=== PATIENT | male | born 1960 | race Caucasian/White ===

== ENCOUNTER 2022-10-23 22:31 | Inpatient (IN) | payer BC, OTHER ==
[~2022-10-23] VITALS: Ht 182.9 cm; Wt 61.7 kg
[2022-10-23] MEDS ORDERED: ONDANSETRON 4 MG/2 ML VIAL IVP ONE (22:35)
[2022-10-23 22:37] VITALS: BP 84/58
--- NOTE | 2022-10-23 22:38 | NUR ---
Pt to bed 9
--- NOTE | 2022-10-23 22:40 | NUR ---
ER physician, Dr. Goel, at bedside assessing patient.
--- NOTE | 2022-10-23 22:40 | NUR ---
Patient resting in bed, A/Ox3, chest rise and fall symmetrical, no c/o pain, on monitor. Addendum: 10/24/22 at 0613 by [email or web address] Amendment undone in ED - 10/24/22 at 0635 by [email or web address] Patient resting in bed, A/Ox2, chest rise and fall symmetrical, no c/o pain, on monitor.
[2022-10-23 22:50] VITALS: BP 84/58
[2022-10-23] MEDS ORDERED: NACL 0.9% 500 ML IV ONE (22:55)
[2022-10-23] MEDS ORDERED: NACL 0.9% 1,000 ML IV ONE (23:00)
[2022-10-23] MEDS ORDERED: PIPERACILLIN/TAZOBACTAM 3.375 GM in DEXTROSE 5% 50 ML IV ONE (23:00)
[2022-10-23 23:25] LABS: BASOPHILS % (AUTO) 0.1 % (0.0-2.0); HEMATOCRIT 43.9 % (36-52); HEMOGLOBIN 14.6 g/dL (12.0-18.0); LYMPHOCYTES # (AUTO) 0.6 K/uL (2.0-11.5); LYMPHOCYTES % (AUTO) 1.8 % (20.5-51.1); MEAN CORPUSCULAR HEMOGLOBIN 32 pg (27-31); MEAN CORPUSCULAR HGB CONC 33 g/dL (33-37); MEAN CORPUSCULAR VOLUME 95.2 fL (80-94); MONOCYTES # (AUTO) 0.5 K/uL (0.8-1.0); MONOCYTES % (AUTO) 1.3 % (1.7-9.3); NEUTROPHILS # (AUTO) 34.3 K/uL (1.8-7.7); NEUTROPHILS % (AUTO) 96.8 % (42.2-75.2)
[2022-10-23 23:30] LABS: WHITE BLOOD COUNT (AUTO) 35.4 K/uL (4.8-10.8)
[2022-10-23 23:31] LABS: PLATELET COUNT (AUTO) 1267 K/uL (140-450)
[2022-10-23] MEDS ORDERED: PIPERACILLIN/TAZOBACTAM 3.375 GM VIAL IV ONE (23:39)
[2022-10-23] MEDS ORDERED: ONDANSETRON 4 MG/2 ML VIAL ONE (23:39)
[2022-10-23 23:41] LABS: ANION GAP 16.3 (8-16); CREATININE 1.6 mg/dL (0.6-1.3); POTASSIUM 4.3 mmol/L (3.5-5.1)
[2022-10-23 23:54] LABS: PROTHROMBIN TIME 10.7 secs (10.8-13.4)
[2022-10-24] VITALS (18 sets, daily range): BP systolic 67–144; BP diastolic 39–108
--- NOTE | 2022-10-24 | NUR ---
Patient resting in bed, A/Ox3, chest rise and fall symmetrical, no c/o pain, on monitor. Addendum: 10/24/22 at 0613 by [email or web address] Amendment undone in ED - 10/24/22 at 0635 by [email or web address] Patient resting in bed, A/Ox2, chest rise and fall symmetrical, no c/o pain, on monitor.
[2022-10-24 00:07] LABS: TOTAL BILIRUBIN 1.3 mg/dL (0.0-1.0)
[2022-10-24 00:18] LABS: APPEARANCE,URINE SL CLOUDY (CLEAR); BILIRUBIN,URINE NEGATIVE (NEGATIVE); BLOOD, URINE 2+ (NEGATIVE); COLOR,URINE YELLOW (YELLOW); LEUKOCYTE ESTERASE ,URINE NEGATIVE (NEGATIVE); NITRITE, URINE NEGATIVE (NEGATIVE); PH,URINE 6.5 (5.0-9.0); UGLUCOSE NEGATIVE (NEGATIVE)
[2022-10-24 00:23] LABS: RBC,URINE 11-20 (MOD) /HPF (0-5)
[2022-10-24] MEDS ORDERED: LACT-103 GT (00:36)
[2022-10-24] MEDS ORDERED: CARB-540 GT (00:36)
[2022-10-24] MEDS ORDERED: LATA7.5D OP (00:36)
[2022-10-24] MEDS ORDERED: DILT30TA18 GT (00:36)
[2022-10-24] MEDS ORDERED: [UNRECOGNIZED DRUG - CODE] GT (00:36)
[2022-10-24] MEDS ORDERED: ATRN INH (00:36)
[2022-10-24] MEDS ORDERED: DORZ10DR11 RIGHT EYE (00:36)
[2022-10-24] MEDS ORDERED: POTA10TA70 GT (00:36)
[2022-10-24] MEDS ORDERED: TRAM50TA3 GT (00:36)
[2022-10-24] MEDS ORDERED: TYL650S RC (00:36)
[2022-10-24] MEDS ORDERED: QUEPKT GT (00:36)
[2022-10-24] MEDS ORDERED: FAMO-90 GT (00:36)
[2022-10-24] MEDS ORDERED: PRO5 GT (00:36)
[2022-10-24] MEDS ORDERED: ACET-2619 GT (00:36)
[2022-10-24] MEDS ORDERED: IMO2 GT (00:36)
[2022-10-24] MEDS ORDERED: ESCI5TAB GT (00:36)
[2022-10-24] MEDS ORDERED: DOCU-299 GT (00:36)
[2022-10-24] MEDS ORDERED: NACL 0.9% 500 ML IV ONE ×2 (00:55→02:50)
[2022-10-24] MEDS ORDERED: MIDODRINE 5 MG TAB PO SCH (00:55)
[2022-10-24] MEDS ORDERED: VANCOMYCIN 1,000 MG in DEXTROSE 5% 250 ML IV ONE (01:05)
[2022-10-24] MEDS ORDERED: MIDODRINE 5 MG TAB GT SCH (01:05)
[2022-10-24] MEDS ORDERED: CRUSHER, PILL MC ONE (01:10)
--- NOTE | 2022-10-24 01:17 | NUR ---
Pt to CT
[2022-10-24] MEDS ORDERED: ACETAMINOPHEN 650 MG/20.3 ML UDC GT ONE (02:00)
--- NOTE | 2022-10-24 02:00 | NUR ---
Patient resting in bed, A/Ox3, chest rise and fall symmetrical, no c/o pain, on monitor. Addendum: 10/24/22 at 0613 by [email or web address] Amendment undone in ED - 10/24/22 at 0636 by [email or web address] Patient resting in bed, A/Ox2, chest rise and fall symmetrical, no c/o pain, on monitor.
[2022-10-24] MEDS ORDERED: VANCOMYCIN 1,000 MG VIAL ONE (02:04)
[2022-10-24] MEDS ORDERED: ACETAMINOPHEN 650 MG SUPP RC ONE (02:25)
--- NOTE | 2022-10-24 02:30 | NUR ---
Per Dr. Goel verbal orders, Gtube drain by gravity to vega bag. Draining well, no s/s of distress from patient. 200mL emptied.
[2022-10-24] MEDS: NACL 0.9% 1,000 ML IV SCH ×3 (04:00→23:33)
--- NOTE | 2022-10-24 04:00 | NUR ---
Patient resting in bed, A/Ox3, chest rise and fall symmetrical, no c/o pain, on monitor. Addendum: 10/24/22 at 0613 by [email or web address] Amendment undone in ED - 10/24/22 at 0636 by [email or web address] Patient resting in bed, A/Ox2, chest rise and fall symmetrical, no c/o pain, on monitor.
[2022-10-24] MEDS ORDERED: PIPERACILLIN/TAZOBACTAM 3.375 GM in DEXTROSE 5% 50 ML IV SCH ×2 (05:00→12:00)
--- NOTE | 2022-10-24 05:05 | NUR ---
RECEIVED BEDSIDE REPORT FROM ROLL PLUGGER, ALEX, FOR CONTINUITY OF CARE. PT CONFUSED, BUT ABLE TO FOLLOW COMMANDS. HIFLOW NC IN PLACE 40L FIO2 60%. AFIB ON MONITOR. TLC TO RIJ INFUSING LEVOPHED AT 5 MCG/MIN AND D5 1/2 NS AT 100 ML/HR. 20G IV PATENT IN LAC, SALINE LOCK. G TUBE IN PLACE, CLAMPED. NPO. HOB 30 DEGREES FOR ASPIRATION PRECAUTIONS. STANDARD PRECAUTION. BED WHEELS LOCKED AND IN LOWEST POSITION. Addendum: 10/24/22 at 4936 by Annabella Mills RN TIME SHOULD BE 1505
[2022-10-24] MEDS ORDERED: KETOROLAC 15 MG/ML VIAL IVP SCH (05:30)
[2022-10-24] MEDS ORDERED: PIPERACILLIN/TAZOBACTAM 3.375 GM VIAL IV ONE (05:30)
[2022-10-24] MEDS ORDERED: LORazepam 2 MG/ML VIAL IVP STA (05:41)
--- NOTE | 2022-10-24 06:36 | NUR ---
Patient resting in bed, A/Ox3, chest rise and fall symmetrical, no c/o pain or s/s of distress, on monitor.
--- NOTE | 2022-10-24 06:38 | NUR ---
Dr. Goel at bedside inserting central line. Patient tolerating procedure well, no s/s of distress, patient on monitor.
--- NOTE | 2022-10-24 06:38 | NUR ---
DR MATTHEWS AT BEDSIDE CENTRAL LINE PLACEMENT
[2022-10-24] MEDS ORDERED: POTASSIUM CHLORIDE 10 MEQ TABER PO PRN (06:40)
[2022-10-24] MEDS ORDERED: ZOLPIDEM 10 MG TAB PO PRN (06:40)
[2022-10-24] MEDS ORDERED: MAG SULF 2000 MG/WATER PREMIX 50 ML IV PRN (06:40)
[2022-10-24] MEDS ORDERED: ONDANSETRON 4 MG/2 ML VIAL IVP PRN (06:40)
[2022-10-24] MEDS ORDERED: DOCUSATE SODIUM 100 MG GELCAP PO PRN (06:40)
[2022-10-24] MEDS ORDERED: VANCOMYCIN PER PHARMACY MC PRN (06:45)
--- NOTE | 2022-10-24 07:15 | NUR ---
Change of shift report given to AM shift Nurse Desmond MOONEY. AM shift Nurse Desmond RN verbalized understanding of report, no further questions.
--- NOTE | 2022-10-24 07:15 | NUR ---
TRANSFERRED PT FROM ER BED 10 TO ICU BED 6. ON NRB 15L. PT RETURNED TO BIPAP /,F14, 75%. NO DISTRESS NOTED. PT RESTING COMFORTABLY. WILL CONTINUE TO MONITOR.
[2022-10-24] MEDS: DEXT 5% /NACL 0.9% 1,000 ML IV SCH ×2 (07:16→18:05)
--- NOTE | 2022-10-24 07:33 | NUR ---
Patient will be admitted to care of DR DU. Admited to ICU. Will go to room6. Belongings list completed. Report to ROCKY MOONEY.
--- NOTE | 2022-10-24 07:33 | NUR ---
ASSUMED CARE OF PT AT THIS TIME A/OX4 LOW B/P 78/38 , HR 129, RR 31, PLACED ON BIPAP , DENIES PAIN,RESPIRATIONS EVEN NON LABORED, DIMINISHED LUNG SOUNDS, AFIB ON MONTOR, BILATERAL HEEEL ULCERS, COOL TO TOUCH, TLC RIGHT IJ, LAEFT AC IV X 2. APPEARS TO BE IN NO ACUTE DISTRESS NOTED AT THIS TIME.
[2022-10-24] MEDS: NOREPINEPHRINE 8 MG in DEXTROSE 5% 250 ML IV PRN ×2 (08:30→21:21)
--- NOTE | 2022-10-24 08:48 | NUR ---
PT STARTED ON LEVO AT THIS TIME
--- NOTE | 2022-10-24 09:12 | NUR ---
PATIENT HAS BEEN SCREENED AND CATEGORIZED HIGH NUTRITION RISK. PATIENT WILL BE SEEN WITHIN 1-2 DAYS OF ADMISSION. 10/25/22-10/26/[address] Addendum: 10/24/22 at [address] [facility] REFERRAL RECEIVED FOR UNHEALED WOUND ON 10/24/22.
--- NOTE | 2022-10-24 09:55 | NUR ---
SWITCHED PT FROM BIPAP 05/15, 75%, F14. TO HFNC 40L, 75%,34 DEGREE FOR PT COMFORT. NO DISTRESS NOTED AT THIS TIME AND IS RESTING COMFORTABLY. WILL CONTINUE TO MONITOR.
--- NOTE | 2022-10-24 10:55 | NUR ---
WOUNDCARE NURSE AT BEDSIDE AT THIS TIME
--- NOTE | 2022-10-24 11:22 | NUR ---
WOUND CARE NOTE: PT. ADMITTED WITH PRESSURE INJURY TO RIGHT ABOVE HEEL ACHILLEA AREA. PARTIAL THICKNESS SKIN LOSS 1X1.5X0.2CM,WOUND BED 100% RED MOIST, NO ODOR, LEATHA-WOUND SKIN DRY HEALING SCAR TISSUE. DRY THIN CALLUS TO HEEL AREA. LEFT HEEL HEALED SCAR WITH BLANCHABLE REDNESS. PT IS AWAKE WHEN TOUCH, AAX4. POC DISCUSSED WITH PT. AND PT. VERBALIZES UNDERSTANDING. RECOMMENDATIONS: -CLEANSE RIGHT ABOVE HEEL ACHILLEA AREA WOUND WITH NS, PAT DRY, APPLY ALGINATE DRESSING TO WOUND BED AND COVER WITH DRY DRESSING Q3D AND PRN IF SOILING. -LEFT HEEL APPLY FOAM DRESSING CHANGE Q3 DAY -APPLY THIN LAYER OF Z GUARD TO BUTTOCKS AND SCROTAL AREA BID AND NURSING INFORMATICS CLINICAL ANALYST -POSITIONING: TURN AND REPOSITION PATIENT Q 2H OR SOONER USE PILLOWS TO KEEP BONY PROMINENCES FROM DIRECT CONTACT WITH SURFACES USE REPOSITIONING WEDGES TO PROVIDE 30-DEGREE ANGLE FOR SIDE LYING POSITIONS OFFLOADING OR FOAM DRESSING TO ALL TUBING TO PREVENT MEDICAL DEVICES RELATED PRESSURE INJURY -RE-EVALUATING AND MANAGING INCONTINENCE MONITOR SKIN CONDITION DURING POSITION CHANGE DO NOT MASSAGE REDNESS, BONY PROMINENCES FREQUENT LEATHA-CARE AND PROVIDE BARRIER CREAMS PRN IF SOILING MOISTURE CONTROL BY OFFER BED ENG/URINAL /ABSORBENT PAD TO WICK AND HOLD MOISTURE KEEP SKIN DRY AND PROTECT FROM FRICTION -MANAGE FRICTION/SHEAR/MOBILITY KEEP HOB AT THE LOWEST LEVEL OF ELEVATION NO MORE THAN 30 DEGREE UNLESS OTHERWISE CONTRAINDICATED USE LIFT SHEET OR TRANSFER DEVICE TO MOVE PATIENT AND PREVENT LATERAL SHEER. PROTECT HEELS, ELBOWS BONY PROMINENCES WITH SKIN BERRIES OR FOAM DRESSING IF EXPOSED TO FRICTION OFFLOAD BILATERAL HEELS BY PLACING PILLOWS UNDER CALVES AT ALL TIMES, UNLESS OTHERWISE CONTRAINDICATED -PRESSURE REDISTRIBUTION SURFACE THERAPY JULIO ISOFLEX MATTRESS -NUTRITION: PLEASE FOLLOW RD RECOMMENDATIONS AND OFFER NUTRITION SUPPLEMENTS IF ORDERED. PLEASE CONTACT WOUND CARE NURSE FOR ANY QUESTION AND CHANGE OF WOUND CONDITION.
--- NOTE | 2022-10-24 12:03 | NUR ---
DR PATEL AND AT BEDSIDE, STATED PT IS A DNR, AGREES, STATED SHE SIGNED THE POLST FORM 5 MONTHS AGO WHEN HE HAD THIS ISSUE AT [facility].
--- NOTE | 2022-10-24 12:03 | NUR ---
REQUESTED FOR POLST FORM FROM [facility] .
[2022-10-24 12:24] LABS: CARBON DIOXIDE 22.2 mmol/L (21-32); CREATININE 2.8 mg/dL (0.6-1.3); POTASSIUM 4.2 mmol/L (3.5-5.1)
[2022-10-24] MEDS: PIPERACILLIN/TAZOBACTAM 2.25 GM in DEXTROSE 5% 50 ML IV SCH ×2 (13:29→20:06)
--- NOTE | 2022-10-24 13:36 | NUR ---
xrat at bedside taking mutiple pictures
--- NOTE | 2022-10-24 14:14 | NUR ---
dr lemus at bedside at this time
[2022-10-24 14:18] LABS: HEMATOCRIT 33.6 % (36-52); HEMOGLOBIN 11.1 g/dL (12.0-18.0); MEAN CORPUSCULAR HEMOGLOBIN 32 pg (27-31); MEAN CORPUSCULAR HGB CONC 33 g/dL (33-37); MEAN CORPUSCULAR VOLUME 95.6 fL (80-94); PLATELET COUNT (AUTO) 689 K/uL (140-450); RED BLOOD CELL COUNT(AUTO) 3.51 MIL/uL (4.20-6.10); RED CELL DISTRIBUTION WIDTH 13.9 % (11.6-13.7)
[2022-10-24 14:27] LABS: WHITE BLOOD COUNT (AUTO) 36.9 K/uL (4.8-10.8)
[2022-10-24 14:46] LABS: LYMPHOCYTES % (MANUAL) 4 % (20-46); METAMYELOCYTES % 5 % (0-0)
--- NOTE | 2022-10-24 15:01 | NUR ---
handoff report to abhishek)
[2022-10-24] MEDS: Z-GUARD PASTE TP SCH (17:00)
[2022-10-24] MEDS: LORazepam 2 MG/ML VIAL IVP PRN ×2 (17:48→23:43)
--- NOTE | 2022-10-24 19:18 | NUR ---
PHONE CALL TO DR. PATEL FOR ORDERS. PT MAXED ON LEVOPHED. ORDERS RECEIVED TO START VASOPRESSIN THEN NORSYNEPHRINE.
[2022-10-24] MEDS ORDERED: VASOPRESSIN 20 UNITS/ML VIAL ONE (19:19)
[2022-10-24] MEDS ORDERED: PHENYLEPHRINE 10 MG in NACL 0.9% 250 ML IV PRN (19:20)
[2022-10-24] MEDS ORDERED: VASOPRESSIN 20 UNITS in NACL 0.9% 250 ML IV SCH (19:20)
--- NOTE | 2022-10-24 19:22 | NUR ---
ENDORSED REPORT TO RETAIL ACCOUNT MANAGER REGISTRY JESICA WAGNER. FOR CONTINUITY OF CARE.
--- NOTE | 2022-10-24 19:24 | NUR ---
Report received from Linsey MOONEY for continuity of care. All cares assumed. Patient currently in bed calm after PRN administered dose of Ativan. Patient VSS and appears to not be in distress at this time. All lines assessed for appropriateness. Verified IV and gtt with 2nd RN. Environmental safety check complete. Cares commence.
--- NOTE | 2022-10-24 19:59 | NUR ---
Dr. Byrnes at bedside. Report given and update on patient current status provided.
[2022-10-24] MEDS ORDERED: NOREPINEPHRINE 4 MG/4 ML VIAL IV ONE (21:14)
--- NOTE | 2022-10-24 23:51 | NUR ---
DR. Keating, Surgical Consult, called requesting information on patient status. Discussed vital signs, patient current status, and next of kin contact information. New orders received.
[2022-10-25] VITALS (29 sets, daily range): BP systolic 96–130; BP diastolic 23–105
[2022-10-25] MEDS: Z-GUARD PASTE TP SCH ×2 (00:41→13:18)
--- NOTE | 2022-10-25 00:41 | NUR ---
NG tube placed per MD orders. Patient tolerated well. VSS. Cares continue.
--- NOTE | 2022-10-25 00:47 | NUR ---
Radiology at bedside performing KUB.
[2022-10-25] MEDS: DEXT 5% /NACL 0.9% 1,000 ML IV SCH ×2 (01:42→13:15)
[2022-10-25] MEDS ORDERED: NOREPINEPHRINE 4 MG/4 ML VIAL IV ONE (01:49)
--- NOTE | 2022-10-25 02:08 | NUR ---
Patient placed on low intermittent suction via ng tube.
[2022-10-25] MEDS: MORPHINE SULFATE 2 MG/ML SYR IVP PRN ×3 (02:22→23:00)
--- NOTE | 2022-10-25 04:01 | NUR ---
SPO2 98%. TITRATED FiO2 FROM 60% TO 50%. SPO2 94%. PT TOLERATING WELL AT THIS TIME. RN NOTIFIED. WILL CONTINUETO MONITOR PT.
--- NOTE | 2022-10-25 04:21 | NUR ---
Morning labs drawn via central line. Lab at bedside to collect specimen. Patient tolerated well.
[2022-10-25] MEDS: PIPERACILLIN/TAZOBACTAM 2.25 GM in DEXTROSE 5% 50 ML IV SCH ×3 (04:53→20:24)
[2022-10-25 05:47] LABS: BASOPHILS % (AUTO) 0.1 % (0.0-2.0); HEMATOCRIT 34.8 % (36-52); HEMOGLOBIN 11.5 g/dL (12.0-18.0); LYMPHOCYTES # (AUTO) 0.4 K/uL (2.0-11.5); LYMPHOCYTES % (AUTO) 1.2 % (20.5-51.1); MEAN CORPUSCULAR HEMOGLOBIN 32 pg (27-31); MEAN CORPUSCULAR HGB CONC 33 g/dL (33-37); MEAN CORPUSCULAR VOLUME 95.7 fL (80-94); MONOCYTES # (AUTO) 0.5 K/uL (0.8-1.0); MONOCYTES % (AUTO) 1.3 % (1.7-9.3); NEUTROPHILS # (AUTO) 35.5 K/uL (1.8-7.7); NEUTROPHILS % (AUTO) 97.4 % (42.2-75.2); PLATELET COUNT (AUTO) 695 K/uL (140-450); RED BLOOD CELL COUNT(AUTO) 3.63 MIL/uL (4.20-6.10); RED CELL DISTRIBUTION WIDTH 14.5 % (11.6-13.7)
--- NOTE | 2022-10-25 05:50 | NUR ---
AM care complete. Bed bath provided including perineal and oral care. One large, thin and yellow-colored BM noted. New condom catheter in place. Patient tolerated well. Cares continue.
[2022-10-25 06:08] LABS: ANION GAP 22.2 (8-16); CARBON DIOXIDE 18.7 mmol/L (21-32); CREATININE 1.9 mg/dL (0.6-1.3); POTASSIUM 3.9 mmol/L (3.5-5.1); WHITE BLOOD COUNT (AUTO) 36.4 K/uL (4.8-10.8)
--- NOTE | 2022-10-25 07:01 | NUR ---
Dr. Keating called requesting update on KUB and patient status. Update provided. placed order for C.diff sample due to loose, watery stool. MD states to inform family to give him a call to discuss plan of care. Verbalized understanding.
--- NOTE | 2022-10-25 07:05 | NUR ---
Report given to Jason MOONEY for continuity of care. All cares endorsed.
--- NOTE | 2022-10-25 07:47 | NUR ---
received sbar from Autumn(fidel) pt resting in bed in stable condition at this time with even respirations, awaitng KUB.
--- NOTE | 2022-10-25 08:03 | NUR ---
DR MULLIGAN AT BEDSIDE AWARE OF PT STATUS
[2022-10-25] MEDS: NOREPINEPHRINE 8 MG in DEXTROSE 5% 250 ML IV PRN ×2 (09:03→23:40)
[2022-10-25] MEDS: NACL 0.9% 1,000 ML IV SCH (09:20)
[2022-10-25] MEDS: LORazepam 2 MG/ML VIAL IVP PRN ×2 (09:59→23:34)
[2022-10-25] MEDS ORDERED: VANCOMYCIN 1,000 MG in DEXTROSE 5% 250 ML IV SCH (10:00)
[2022-10-25] MEDS ORDERED: AMIODARONE 150 MG in DEXTROSE 5% 100 ML IV ONE (10:15)
--- NOTE | 2022-10-25 10:16 | NUR ---
DR PATEL HERE AT BEDSIDE, CALLED REGARDING PT DECLINING CONDITION.
--- NOTE | 2022-10-25 11:10 | NUR ---
CALLED RT (PAM) REGARDING PT BREATHING, NEEDS SUCTIONING
[2022-10-25] MEDS: AMIODARONE 450 MG in DEXTROSE 5% 250 ML IV SCH (11:23)
--- NOTE | 2022-10-25 11:32 | NUR ---
AT BEDSIDE AT THIS TIME, SPOKE TO DR PATEL, STATED SHE WILL CALL HER SISTER FOR A 3 WAY CONFERENCE CALL.
--- NOTE | 2022-10-25 13:07 | NUR ---
STEPSON AT BEDSIDE AT THIS TIME
--- NOTE | 2022-10-25 13:11 | NUR ---
DC PLANNING ASSESSMENT COMPLETE PLEASE REFER TO ASSESSMENT FOR ADDITIONAL DETAILS HATSUMI REPORTS BEING UPDATED ON POC BY PHYSICIAN. DC PLAN TENTATIVE ON PHYSICIANS RECOMMENDATIONS. Addendum: 10/25/22 at 1313 by Beth PALMER Amended: Links added.
[2022-10-25] MEDS: FOAM DRESSING TP SCH (13:17)
--- NOTE | 2022-10-25 14:09 | NUR ---
10/25/22 RD INITIAL ASSESSMENT COMPLETED PLEASE REFER TO NUTRITION ASSESSMENT UNDER CARE ACTIVITY FOR ESTIMATED NUTRITIONAL NEEDS. 1. MONITOR NPO STATUS 2. WHEN/IF MEDICALLY APPROPRIATE TO START TF, RECOMMEND GLUCERNA 1.2 AT GOAL RATE 70 ML/HR WITH RANDI BID FOR WOUND SUPPORT, FWF 200 ML Q6H OR PER MD TOLERATED - WITH RANDI BID (PROVIDES 160 KCAL AND 5 GM PROTEIN DAILY) WILL PROVIDE 1680 ML TOTAL VOLUME, 2176 KCAL, 105 GM PROTEIN AND 2152 ML FREE WATER DAILY MEETING 98% ESTIMATED KCAL NEEDS AND 100% ESTIMATED PROTEIN NEEDS; ADEQUATE - START TF AT 2O ML/HR INCREASE BY 2O ML Q4H UNTIL GOAL IS REACHED TOLERATED 3. MONITOR GI SYMPTOMS, GASTRIC RESIDUALS AND NUTRITION RELATED LAB VALUES 4. CONSULT RD PRN 5. RD TO FOLLOW-UP 2-3 DAYS, HIGH RISK REVIEWED BY BARBARA YEE RD
--- NOTE | 2022-10-25 14:37 | NUR ---
CALLED REGARDING GURGLING SOUNDS, DR MELENDREZ AT BEDSIDE STATED TO DC FLUIDS AT THIS TIME AND GET AN ABG.
--- NOTE | 2022-10-25 14:42 | NUR ---
DC PLANNING A 62 Y.O.MALE PATIENT, A RESIDENT OF [facility] ADMITTED TO ICU 10/24/22 FOR DESATURATION AND SOB.HX OF HTN,CHF,DM, A.FIB AND PARAPLEGIA.PATIENT WAS TACHYCARDIC AND HYPOTENSIVE. WAS STARTED ON LEVOPHED.ON HI FLOW 40L FIO2 50%.CHEST /ABDOMEN/PELVIS CT - SHOWS SBO. SMALL BOWEL FOLLOW THROUGH SERIES CONSISTENT WITH SEVERE ILEUS.GEN.SURGERY ON BOARD. CARDIO,PULMO AND ID FOLLOWING WELL.URINE,BLOOD (-).NO MRSA ISOLATED.ON ZOSYN.PATIENT IS DNR.DC PLAN- BACK TO [facility] WHEN PATIENT RESPONDS TO TX.CM TO FOLLOW. Addendum: 10/29/22 at 1244 by EDDIE HAHN CM DC PLANNING PATIENT IS A RESIDENT OF [facility] .PATIENT IS STILL INTUBATED.ON AMIODARONE,VASOPRESSIN AND LEVO DRIPS.WBC ON ADMISSION 35.4 DOWN TO 18.7. BLOOD AND URINE CULTURES NO GROWTH.STOOL (+) FOR C.DIFF.ON VANCOMYCIN.CODE STATUS FULL CODE PER 'S REQUEST.EX-PLOR LAP REFUSED BY .SAME CONSULTS ABOVE ON BOARD .CM TO FOLLOW Addendum: 10/31/22 at 1434 by EDDIE HAHN CM DC PLANNING PATIENT STILL INTUBATED ON 30%FIO2.ON VASOPRESSIN AND FENTANYL DRIPS.WBC STILL HIGH 26.7.10/27 (+)FOR ESBL IN SPUTUM, 10/25 BLOOD CULTURE (+) FOR C.DIFF, 10/24 BLOOD CULTURE (+) FOR MRSA.10/25 CXR -SUGGESTIVE OF PNEUMONIA.10/23 CHEST/ABDOMEN/PELVIS -CONSISTENT WITH BOWEL OBSTRUCTION.10/24- SMALL BOWEL XR-SBO BUT REFUSED SURGERY STATED EARLIER.ABLE TO GET AUTH FROM [employer] .AUTH [id number] APPROVAL FROM October TO October.MESSAGE LET TO CM CARLYN TURNER RN REGARDING TRANSFER TO [facility].UPDATE OF CONDITION GIVEN WELL.WILL CALL TO UPDATE ABOUT INSYURANCE CONCERN.CARDIO,PULMO ,ID ON BOARD .CM TO FOLLOW. Addendum: 10/31/22 at 1440 by EDDIE HAHN CM LATE ENTRY PATIENT IS ON VASOPRESSIN AND LEVOPHED DRIPS.OFF FENTANYL DRIP SINCE 10/29.ON MEROPENEM AND VANCOMYCIN Addendum: 11/06/22 at 1316 by EDDIE HAHN CM DC PLANNING PATIENT IS STILL VENTED AND FAILING CPAP TRIALS.FOR POSSIBLE TRACH IF UNABLE TO WEAN VENT.10/27 SPUTUM (+) ESBL.STARTED ON LEVOPHED FOR LOW B/P.PATIENT HAS RECTAL TUBE AND (+0 FOR C.DIFF 10/25.HAD A.FIB ON ADMISSION BUT ON SR NOW.ON AMIODARONE PO.PATIENT HAS MULTIPLE CONSULTS (NEPHRO,CARDIO.PULMO,ID AND SURGERY ).HAVE NOT GOTTEN A CALL FROM [employer] BUT WILL GIVE ANOTHER UPDATE TODAY.CM TO FOLLOW. Addendum: 11/07/22 at 1654 by EDDIE HAHN CM DC PLANNING REQUEST FOR LTAC EVALUATION INITIATED.CLINICALS FAXED TO JIM.PATIENT IS POST TRACHEOSTOMY TODAY AND BACK ON THE VENT.STILL ON LEVOPHED.CM TO FOLLOW.O Addendum: 11/09/22 at 1248 by EDDIE HAHN CM DC PLANNING PATIENT TRACH TO VENT.OFF PRESSORS.PATIENT IS DNI/DNR.CLINICALS FAXED TO [facility] AT .REMEDIOS [place]LE SPOKE WITH [employer] REP AT FOR AUTHORIZATION FOR LTAC.JIM ELECTRICAL CONTINUITY INSPECTOR UPDATED OF ABOVE PHONE NUMBER TO CALL FOR AUTH FOR LTAC.CM TO FOLLOW. Addendum: 11/12/22 at 1212 by EDDIE HAHN CM DC PLANNING PATIENT IS STILL ON TRACH TO VENT.CPAP TRIALS PER RT.WBC CREEPING UP AGAIN(27.4).11/07 BLOOD CULTURE SHOWS KLEBSIELLA PNEUMONIA AND PSEUDOMONAS A. ANTIBIOTICS -COLISTIMETHATE AND MEROPENEM. ID ON BOARD. AUTHORIZATION FOR LTAC GIVEN BY DIANA.REF #[id number] X 5 -11 DAYS.[facility]ANG AT [facility] NOTIFIED.AWAITING FOR BED AVAILABILITY AT [facility]. NOTIFIED BY HUANG WELL. CM TO FOLLOW. Addendum: 11/12/22 at 1358 by EDDIE HAHN CM DC PLANNING LATE ENTRY- [employer] PHONE NUMBER FOR MEDICAL AUTH. Addendum: 11/12/22 at 1442 by REMEDIOS LIZ CM RECEIVED ORDER FOR SETUP TRANSPORTATION ON WILL CALL LIST. FROM [facility] TO [facility] [id number] [facility] [id number]. ARRANGED WITH [facility] Addendum: 11/12/22 at 1448 by EDDIE HAHN CM DC PLANNING AUTH FOR TRANSPORT -[id number] GIVEN BY LOC DeutschAT [facility].PHONE NUMBER . Addendum: 11/13/22 at 1032 by Tricia Michael RN DC PLANNING: RECEIVED A MESSAGE FROM [facility] STATED PATIENT GOT ACCEPTED AT [facility] UNDER THE CARE OF DR MCFARLAND. CAN GO TO ROOM [facility] # TO GIVE REPORT [phone] NOTIFIED REILLY MOONEY ARRANGED TRANSPORT WITH [employer] TIME 1200PM. CM TO FOLLOW Addendum: 11/13/22 at 1138 by EDDIE HAHN CM DC PLANNING TALKED TO JOYCE ON THE PHONE AND UPDATED OF PATIENT'S TRANSFER TO [facility] ROOM 315 .AUTHORIZATION FOR STAY HERE AT [facility] FROM ADMISSION TO November WHEN MEDICAL AUTH WAS CHECKED BY CALLING .[employer] [facility] TIME BY [facility] AT 12 NOON.
--- NOTE | 2022-10-25 14:55 | NUR ---
DR Swift CALLED REGARDING KUB RESULTS
[2022-10-25] MEDS ORDERED: TPN PER PHARMACY MC PRN (16:20)
--- NOTE | 2022-10-25 18:13 | NUR ---
DR Swift HERE AT BEDSIDE WITH FAMILY, NO SURGERY NEEDED AT THIS TIME WILL CONTINUE TO OBSERVE
--- NOTE | 2022-10-25 22:36 | NUR ---
1900-REPORT WAS RECEIVED FROM [facility] AT BEDSIDE.PT.RECEIVED IN HIGH FLOW 02 PER CANNULA 40 LITERS 70%WITH 02 SAT 97-99. [id number] PER MIN
--- NOTE | 2022-10-25 22:52 | NUR ---
2030- HAD SOME FECAL LEAK FROM THE FLEXISEAL AND SCATTERRED IN BED. .COMPLATE BED BATH DONE AND TOTAL LINEN CHANGED DONE . oREAL CARE DONE
--- NOTE | 2022-10-25 22:55 | NUR ---
2200- MAINTAINED HOB UP HIGH COBB POS. AND SIDERAILS UP TIMES 3 . BED IN LOW POSITION
--- NOTE | 2022-10-25 23:01 | NUR ---
2246- TACHYPNEIC-51/MIN , MORPHINE 2 MG iVP GIVEN TO CALM DOWN PT.
[2022-10-26] VITALS (25 sets, daily range): BP systolic 107–138; BP diastolic 65–83
[2022-10-26] MEDS: VANCOMYCIN 500 MG VIAL GT SCH ×2 (00:53→05:17)
[2022-10-26] MEDS: Z-GUARD PASTE TP SCH ×2 (00:54→13:00)
--- NOTE | 2022-10-26 01:21 | NUR ---
0000-B REPOSITIONED AND ORAL CARE DONE
--- NOTE | 2022-10-26 02:18 | NUR ---
0200- REMAINS TACHYPNIECBET 45-48 /MIN BUT O2AT IS 97%-98%. WILL GIVE HIM ANOTHER DOSE OF MORPHINE 2MG IVP IN AN HOUR TO SEE IF THE PAIN MED WILL BE EFFECTIVE IN BRINGING DOWN HIS RESP. RATE
[2022-10-26] MEDS: MORPHINE SULFATE 2 MG/ML SYR IVP PRN ×2 (03:03→20:01)
--- NOTE | 2022-10-26 03:45 | NUR ---
0303- MORPHINE SULFATE 2MG IVP WAS GIVEN FOR COMFORT AND TO REDUCE RESP. RATE
[2022-10-26] MEDS: PIPERACILLIN/TAZOBACTAM 2.25 GM in DEXTROSE 5% 50 ML IV SCH ×3 (04:21→19:50)
[2022-10-26 06:10] LABS: HEMATOCRIT 31.7 % (36-52); HEMOGLOBIN 10.5 g/dL (12.0-18.0); MEAN CORPUSCULAR HEMOGLOBIN 31 pg (27-31); MEAN CORPUSCULAR HGB CONC 33 g/dL (33-37); MEAN CORPUSCULAR VOLUME 94.1 fL (80-94); PLATELET COUNT (AUTO) 541 K/uL (140-450); RED BLOOD CELL COUNT(AUTO) 3.37 MIL/uL (4.20-6.10); RED CELL DISTRIBUTION WIDTH 14.2 % (11.6-13.7)
[2022-10-26 06:15] LABS: PHOSPHORUS 2.6 mg/dL (2.5-4.9)
[2022-10-26 06:18] LABS: ALBUMIN 1.7 g/dL (3.4-5.0); CHOL/HDL RATIO 7.8 (1-4.5)
[2022-10-26 06:25] LABS: ANION GAP 14.8 (8-16); CARBON DIOXIDE 23.9 mmol/L (21-32); CREATININE 1.1 mg/dL (0.6-1.3)
--- NOTE | 2022-10-26 06:25 | NUR ---
0500- REPOSITIONE, ORAL CARE DONE
[2022-10-26 06:27] LABS: POTASSIUM 2.7 mmol/L (3.5-5.1)
[2022-10-26 06:30] LABS: WHITE BLOOD COUNT (AUTO) 25.4 K/uL (4.8-10.8)
[2022-10-26 06:51] LABS: BASOPHILS % (MANUAL) 1 % (0-2); EOSINOPHILS % (MANUAL) 0 % (0-4); LYMPHOCYTES % (MANUAL) 4 % (20-46); MONOCYTES % (MANUAL) 6 % (5-12)
--- NOTE | 2022-10-26 07:07 | NUR ---
0638-LAB RESULT K= LEVEL IS 2.7, GAVE 40 MEQ OF KDUR THRU PEG AND
--- NOTE | 2022-10-26 07:32 | NUR ---
CALLED TO BEDSIDE BECAUSE PATIENT WAS DESATING TO 82%. PATIENTS NASAL CANNULA WAS NOT SITTING DIRECTLY IN NOSTRILS. REPOSITIONED NASAL CANNULA AND CHANGED OUT PULSE OX. PATIENT IS NOW SATING AT 96%. PATIENT CONTINUE TO BELLY BREATHE AND EXHIBITS TACHYPNEA.WILL CONTINUE TO MONITOR.
--- NOTE | 2022-10-26 07:37 | NUR ---
0710-SHIFT ENDORSEMENT GIVEN TO ROCKY
[2022-10-26] MEDS: VANCOMYCIN 1.25GM PREMIX 250 ML IV SCH (10:00)
[2022-10-26] MEDS ORDERED: POTASSIUM CHLORIDE 40 MEQ, LIDOCAINE 1% 25 MG in NACL 0.9% 250 ML IV SCH (10:00)
[2022-10-26] MEDS: BLOOD GLUCOSE MONITORING 1 DEV DEV MC SCH ×3 (12:00→23:11)
[2022-10-26] MEDS: VANCOMYCIN HCL 25 MG/ML SOLN GT SCH ×3 (12:00→23:15)
[2022-10-26] MEDS: NOREPINEPHRINE 8 MG in DEXTROSE 5% 250 ML IV PRN (19:25)
--- NOTE | 2022-10-26 19:27 | NUR ---
KIKI JO(RN)
[2022-10-26] MEDS: ALBUTEROL SULFATE/IPRATROPIU 3 ML SOL IH PRN ×2 (19:41→23:16)
[2022-10-26] MEDS: AMINO ACIDS 8.5% IV SCH ×3 (19:44)
[2022-10-26] MEDS: MULTIVITAMIN IV SCH ×3 (19:44)
[2022-10-26] MEDS: DEXTROSE IV SCH ×3 (19:44)
--- NOTE | 2022-10-26 19:45 | NUR ---
1900 LOWERED LITER FLOW FROM 40 TO 35 L ON HIGH FLOW
--- NOTE | 2022-10-26 20:32 | NUR ---
1914 -RECEIVED BEDSIDE ENDORSEMENT WAQAS HIDALGO RN DAY SHIFT. PT IS CRITICALLY STABLE EXCEPT TACHYPNEIC UP TO 50/MIN ORAL CARE DONE AND REPOSITIONED. SIDERAILS UP TIMES 3 AND BED UP TO HIGH FOWLERS POS. ON HIGH FLOW 02 AT 35LITERS AND 70% o2. ON ST 111-114, AFEBRILE AND ON LEVOPHED DRIP 15MCG/MIN, AMIODARONE DRIP AT 0.5MG/HR AND VASOPRESSIN AT 0.2 UNITS/ HR Addendum: 10/27/22 at 0247 by Agency 04 JESICA MOONEY VASOPRESSIN AT 0.2 UNITS/ MIN
--- NOTE | 2022-10-26 22:03 | NUR ---
1999- REMAINS TACHYPNEIC UP TO 40-45/MIN. HOB UP HIGH FOWLERS POSITION
--- NOTE | 2022-10-26 22:07 | NUR ---
2001- MORPHINE 2 MG IVP GIVEN FOR COMFORT AND TO REDUCE TACHYPNEA
--- NOTE | 2022-10-26 22:10 | NUR ---
2200- FLEXISEAL WAS LEAKING , COMPLETE BED BATH DONE AND COMPLETE LINEN CHANGED DONE
[2022-10-26] MEDS: INSULIN LISPRO SLIDING SCALE 100 UNITS/ML VIAL SUBQ PRN (23:12)
--- NOTE | 2022-10-26 23:18 | NUR ---
2315 lowered liter flow from 35 to 30 l on high flow
--- NOTE | 2022-10-26 23:42 | NUR ---
2335 PLACED PATIENT ON BIPAP DUE TO HIS HIGH RESPIRATORY RATE IN THE 50'S. PLACED PT ON IPAP 12 EPAP 6 RR 14 FIO2 70% PT HAS COARSE BREATH SOUNDS. 2 DUONEB TXS GIVEN SO FAR
[2022-10-26] MEDS ORDERED: VASOPRESSIN 20 UNITS/ML VIAL ONE (23:43)
--- NOTE | 2022-10-26 23:43 | NUR ---
2340-PT REMAINS TACHYPNEIC 50/MIN AND CRACLES HEARD ALL OVER . RT PLACED HIM ON BIPAP DR DON TEXTED REGARDING BIPAP AND OPT. MIGHT NEED LASIX ASWE HEARD CRACKLESALL OVER . RESP RATE AFTERTHE BIPAP WAS 35
[2022-10-27] VITALS (34 sets, daily range): BP systolic 94–136; BP diastolic 53–91
[2022-10-27] MEDS: LORazepam 2 MG/ML VIAL IVP PRN (01:25)
[2022-10-27] MEDS: Z-GUARD PASTE TP SCH ×2 (01:33→13:23)
--- NOTE | 2022-10-27 01:35 | NUR ---
0125- REMAINS TACHYPNEIC 50/MIN, ATIVAN 2 MG IVP GIVEN FOR RR TO GO DOWN
--- NOTE | 2022-10-27 02:21 | NUR ---
0200- ON SR W/O ECTOPY
[2022-10-27] MEDS: PIPERACILLIN/TAZOBACTAM 2.25 GM in DEXTROSE 5% 50 ML IV SCH ×3 (04:14→20:46)
--- NOTE | 2022-10-27 04:30 | NUR ---
0400- BACK TO AFIB UNCONTROLLED [id number] . REMAINS TACHYPNEIC
--- NOTE | 2022-10-27 04:33 | NUR ---
0430 LOWERED FIO2 TO 60% ON BIPAP
[2022-10-27] MEDS ORDERED: FUROSEMIDE 20 MG/2 ML VIAL IVP ONE ×2 (04:40→05:15)
--- NOTE | 2022-10-27 04:46 | NUR ---
0445-DR OSEGUERA CALLED BACK AND ORDEREDLASIX 20 MG IVP
[2022-10-27] MEDS: VANCOMYCIN HCL 25 MG/ML SOLN GT SCH ×3 (05:34→17:50)
[2022-10-27 05:47] LABS: HEMATOCRIT 28.9 % (36-52); HEMOGLOBIN 9.7 g/dL (12.0-18.0); LYMPHOCYTES # (AUTO) 0.7 K/uL (2.0-11.5); LYMPHOCYTES % (AUTO) 2.8 % (20.5-51.1); MEAN CORPUSCULAR HEMOGLOBIN 32 pg (27-31); MEAN CORPUSCULAR HGB CONC 34 g/dL (33-37); MONOCYTES # (AUTO) 0.6 K/uL (0.8-1.0); MONOCYTES % (AUTO) 2.3 % (1.7-9.3); NEUTROPHILS # (AUTO) 23.8 K/uL (1.8-7.7); NEUTROPHILS % (AUTO) 94.9 % (42.2-75.2); PLATELET COUNT (AUTO) 384 K/uL (140-450); RED BLOOD CELL COUNT(AUTO) 3.04 MIL/uL (4.20-6.10); RED CELL DISTRIBUTION WIDTH 14.3 % (11.6-13.7)
[2022-10-27 05:50] LABS: CREATININE 0.7 mg/dL (0.6-1.3)
--- NOTE | 2022-10-27 06:08 | NUR ---
0600- NO FLEXISEAL LEAK
[2022-10-27] MEDS: BLOOD GLUCOSE MONITORING 1 DEV DEV MC SCH ×3 (06:22→17:50)
[2022-10-27] MEDS: INSULIN LISPRO SLIDING SCALE 100 UNITS/ML VIAL SUBQ PRN ×3 (06:23→17:49)
--- NOTE | 2022-10-27 06:45 | NUR ---
5618- DR JAIRO ROCHE WAS TEXTED TO INFORM THAT PT. RETURNED TO AFIB UNCONTROLLED [id number], REMAINS ON AMIODARONE 0.5 MG / MIN AND BP WAS STABLE. RESPONDED WELL TO LASIX
[2022-10-27 07:09] LABS: WHITE BLOOD COUNT (AUTO) 25.1 K/uL (4.8-10.8)
--- NOTE | 2022-10-27 07:15 | NUR ---
Received report on pt. Pt drowsy, arousable, does not follow commands, moves hands, equal chest rise and fall. Pt in no signs of pain, on bipap Fio2 60%. On levophed, vasopressin, and amiodarone drips, HR remains in 140s-150s. Pt receiving TPN, NGT to suction with brown liquid output. Wilkins in place draining urine to gravity. Flexiseal in place with liquid brown output.
[2022-10-27] MEDS: AMIODARONE 450 MG in DEXTROSE 5% 250 ML IV SCH ×2 (07:30→17:26)
[2022-10-27] MEDS: VANCOMYCIN 1.25GM PREMIX 250 ML IV SCH (09:03)
[2022-10-27] MEDS ORDERED: KCL 20 MEQ IN 100 mL PREMIX 200 ML IV ONE (09:50)
[2022-10-27] MEDS ORDERED: VANCOMYCIN 1,000 MG in DEXTROSE 5% 250 ML IV SCH (10:00)
--- NOTE | 2022-10-27 10:23 | NUR ---
10/27/22 RD FOLLOW UP COMPLETED PLEASE REFER TO NUTRITION ASSESSMENT UNDER CARE ACTIVITY FOR ESTIMATED NUTRITIONAL NEEDS. 1. MONITOR BLOOD GLUCOSE LEVELS AND GI SYMPTOMS 2. WHEN/IF MEDICALLY APPROPRIATE TO START TF, RECOMMEND GLUCERNA 1.2 AT GOAL RATE 70 ML/HR WITH RANDI BID FOR WOUND SUPPORT, FWF 200 ML Q6H TOLERATED - WITH RANDI BID (PROVIDES 160 KCAL AND 5 GM PROTEIN DAILY) WILL PROVIDES 1680 ML TOTAL VOLUME, 2176 KCAL, 105 GM PROTEIN AND 2152 ML FREE WATER DAILY MEETING 98% ESTIMATED KCAL NEEDS AND 100% ESTIMATED PROTEIN NEEDS; ADEQUATE - START TF AT 1O ML/HR INCREASE BY 1O ML Q4H UNTIL GOAL IS REACHED TOLERATED 3. CONSULT RD PRN 4. RD TO FOLLOW-UP 2-3 DAYS, HIGH RISK BARBARA YEE RD
--- NOTE | 2022-10-27 10:29 | NUR ---
Placed call x2 to patient's , Edison Gonzalez, with Dr. Antonio. No answer, left voicemail.
[2022-10-27] MEDS ORDERED: PROPOFOL 1000 MG/100 ML PREMIX 100 ML IV ONE (11:38)
--- NOTE | 2022-10-27 11:44 | NUR ---
Intubation done by Dr. Antonio who also administered propofol 25 mcg IV push and Rocuronium 50 mg IV push. Addendum: 10/27/22 at 1353 by Agency NurseJESICA RN Witnessed by
--- NOTE | 2022-10-27 11:45 | NUR ---
PATIENT INTUBATED BY MD MANE FOR AIRWAY PROTECTION. PATIENT SUCCESSFULLY INTUBATED WITH 8.0 ETT. AIRWAY IS PATENT AND SECURED AT 25cm @TEETH WITH TUBE STEPHENS AND BITE BLOCK. POSITIVE COLOR CHANGE, BILATERAL BREATH SOUNDS HEARD, AND ADEQUATE CHEST RISE AND FALL NOTED. PATIENT PLACED ON VENTILATOR WITH SETTINGS PRVC 450, RATE 20, 100% FIO2, AND PEEP OF 5. CXR DONE SHOWING TUBE 2.2cm ABOVE SOFIE. ABG AND SPUTUM ORDERED. AMBU BAG LEFT AT BEDSIDE. VENTILATOR ALARMS ARE SET AND AUDIBLE TO ENVIRONMENT. VENTILATOR IS PLUGGED INTO RED OUTLET. WILL CONTINUE TO MONITOR.
[2022-10-27] MEDS ORDERED: fentaNYL citrate 1 MG in NACL 0.9% 80 ML IV PRN (11:55)
[2022-10-27] MEDS ORDERED: MIDAZOLAM MDV 50 MG in NACL 0.9% 40 ML IV PRN (11:55)
[2022-10-27] MEDS ORDERED: MIDAZOLAM MDV 100 MG in NACL 0.9% 80 ML IV PRN (12:06)
[2022-10-27] MEDS: ALGINATE DRESSING MC SCH (13:23)
[2022-10-27] MEDS ORDERED: PROPOFOL 200 MG/20 ML VIAL IV ONE (13:25)
[2022-10-27] MEDS ORDERED: fentaNYL citrate 2.5 MG in NACL 0.9% 200 ML IV PRN (13:36)
[2022-10-27] MEDS ORDERED: ROCURONIUM 50 MG/5 ML VIAL IV ONE (13:40)
[2022-10-27] MEDS: NOREPINEPHRINE 8 MG in DEXTROSE 5% 250 ML IV PRN (13:59)
--- NOTE | 2022-10-27 16:30 | NUR ---
Dr. Gary rounding on pt, states to have pt on vancomycin enemas in addition to PO and IV routes. New orders made.
--- NOTE | 2022-10-27 16:30 | NUR ---
Dr. Keating rounding on pt, states to maintain NPO status.
[2022-10-27] MEDS: VANCOMYCIN 500 MG VIAL RC SCH (18:00)
[2022-10-27] MEDS ORDERED: WATER STERILE 10 ML MC ONE (18:29)
--- NOTE | 2022-10-27 19:15 | NUR ---
RECEIVED REPORT FROM DAY SHIFT NURSE, BEN MOONEY. ALL CARES ASSUMED. RECEIVED PT ON SEMI-COBB'S POSITION WITH SIDE-RAILS RAISED. SEDATED, NO SPONTANEOUS EYE OPENING. WITH NGT ON LEFT NARES ATTACHED TO SUCTION. WITH ETT IN PLACE ATTACHED TO VENT - SPO2 99%, NO DISTRESS. WITH IJ CENTRAL LINE - FLOWING TO - NS AT 5ML/HR; LEVOPHED AT 18 MCG/MIN; FENTANYL AT 50 MCG/MIN; VERSED 1 MG/H; TPN 70 ML/HR AND VASOPRESSIN AT 0.08 UNIT/MIN - INFUSING WELL. PEG TUBE IN PLACE. YANG CATHETER DRAINING TO BY GRAVITY. FLEXISEAL IN PLACE - DRAINING WELL. WITH WOUND OVER RIGHT HEAL.
--- NOTE | 2022-10-27 19:18 | NUR ---
Closing Pt with no acute changes. Dr. Garcia rounded and states to continue amiodarone drip and change rate to 1 mcg/min. Remains on other ordered pressors and sedation. Vancomycin enema given as ordered. Endorsed plan of care to RN.
[2022-10-27] MEDS ORDERED: PHENYLEPHRINE 10 MG in NACL 0.9% 250 ML IV PRN (19:25)
[2022-10-27] MEDS: ALBUTEROL SULFATE/IPRATROPIU 3 ML SOL IH PRN (19:35)
--- NOTE | 2022-10-27 20:06 | NUR ---
1910 CHANGED PATIENTS VENT MODE TO AC DUE TO LOW PEAK PRESSURES. DR MANE CALLED AND RECEIVED ORDER
[2022-10-27] MEDS: AMINO ACIDS 8.5% IV SCH ×3 (20:29)
[2022-10-27] MEDS: MULTIVITAMIN IV SCH ×3 (20:29)
[2022-10-27] MEDS: DEXTROSE IV SCH ×3 (20:29)
[2022-10-27] MEDS: FAMOTIDINE 20 MG/2 ML VIAL IV SCH (20:44)
[2022-10-27] MEDS: VANCOMYCIN 1,000 MG in DEXTROSE 5% 250 ML IV SCH (20:45)
[2022-10-28] VITALS (32 sets, daily range): BP systolic 89–129; BP diastolic 48–106
[2022-10-28] MEDS: NOREPINEPHRINE 8 MG in DEXTROSE 5% 250 ML IV PRN ×3 (00:13→21:43)
[2022-10-28] MEDS: VANCOMYCIN HCL 25 MG/ML SOLN GT SCH ×5 (00:43→23:36)
[2022-10-28] MEDS: VANCOMYCIN 500 MG VIAL RC SCH ×2 (00:44→06:09)
[2022-10-28] MEDS: ALBUTEROL SULFATE/IPRATROPIU 3 ML SOL IH PRN ×2 (01:06→16:08)
[2022-10-28] MEDS: Z-GUARD PASTE TP SCH ×2 (01:11→13:03)
[2022-10-28] MEDS: INSULIN LISPRO SLIDING SCALE 100 UNITS/ML VIAL SUBQ PRN ×3 (01:12→12:25)
[2022-10-28] MEDS ORDERED: AMIODARONE 450 MG/9 ML VIAL IV ONE (01:20)
[2022-10-28] MEDS: AMIODARONE 450 MG in DEXTROSE 5% 250 ML IV SCH ×2 (01:25→17:46)
--- NOTE | 2022-10-28 04:16 | NUR ---
0410 increased fio2 to 40% due to sats dropping to 88%
[2022-10-28] MEDS ORDERED: VASOPRESSIN 20 UNITS/ML VIAL ONE (04:38)
[2022-10-28] MEDS: PIPERACILLIN/TAZOBACTAM 2.25 GM in DEXTROSE 5% 50 ML IV SCH ×3 (04:38→20:52)
[2022-10-28 05:33] LABS: HEMATOCRIT 27.1 % (36-52); HEMOGLOBIN 9.3 g/dL (12.0-18.0); MEAN CORPUSCULAR HEMOGLOBIN 32 pg (27-31); MEAN CORPUSCULAR HGB CONC 34 g/dL (33-37); MEAN CORPUSCULAR VOLUME 93.9 fL (80-94); PLATELET COUNT (AUTO) 331 K/uL (140-450); RED BLOOD CELL COUNT(AUTO) 2.89 MIL/uL (4.20-6.10); RED CELL DISTRIBUTION WIDTH 14.2 % (11.6-13.7); WHITE BLOOD COUNT (AUTO) 16.3 K/uL (4.8-10.8)
[2022-10-28 05:56] LABS: ANION GAP 10.6 (8-16); CARBON DIOXIDE 27.2 mmol/L (21-32); CREATININE 0.6 mg/dL (0.6-1.3)
[2022-10-28] MEDS ORDERED: VANCOMYCIN 1,000 MG VIAL ONE (05:58)
[2022-10-28] MEDS: BLOOD GLUCOSE MONITORING 1 DEV DEV MC SCH ×5 (06:09→23:53)
[2022-10-28 06:12] LABS: BASOPHILS % (MANUAL) 0 % (0-2); EOSINOPHILS % (MANUAL) 0 % (0-4); LYMPHOCYTES % (MANUAL) 4 % (20-46); MONOCYTES % (MANUAL) 4 % (5-12)
[2022-10-28 06:15] LABS: POTASSIUM 2.8 mmol/L (3.5-5.1)
[2022-10-28] MEDS: POTASSIUM CHLORIDE 20% 40 MEQ/15 ML UDC GT PRN (06:35)
--- NOTE | 2022-10-28 06:35 | NUR ---
LATEST K LEVEL - 2.8. KCL GIVEN VIA G-TUBE.
[2022-10-28] MEDS: VASOPRESSIN 40 UNITS in NACL 0.9% 250 ML IV SCH (06:38)
--- NOTE | 2022-10-28 07:15 | NUR ---
RECEIVED PT ON ACVC TV450, F20,+5, 40%. SATURATION 96%, CLEAR BREATH SOUNDS ON THE LEFT, SLIGHT RALES ON THE RIGHT. CREAM SECRETIONS SUCTIONED. VENT PLUGGED INTO RED OUTLET, WHEELS LOCKED, AMBUBAG AT BEDSIDE, ALARMS ARE SET AND AUDIBLE TO THE NURSE STATION. WILL CONTINUE TO MONITOR.
--- NOTE | 2022-10-28 07:15 | NUR ---
REPORT GIVEN TO DAY SHIFT NURSE, IAN RN. ALL QUESTIONS ANSWERED.
[2022-10-28] MEDS: FAMOTIDINE 20 MG/2 ML VIAL IV SCH ×2 (08:18→20:51)
[2022-10-28] MEDS: VANCOMYCIN 1,000 MG in DEXTROSE 5% 250 ML IV SCH ×3 (08:19→21:00)
[2022-10-28] MEDS: FOAM DRESSING TP SCH (09:00)
[2022-10-28] MEDS ORDERED: MAG SULF 2000 MG/WATER PREMIX 50 ML IV SCH (09:01)
[2022-10-28] MEDS ORDERED: POTASSIUM PHOSPHATE 30 MM in NACL 0.9% 250 ML IV SCH (10:00)
[2022-10-28] MEDS: NACL 0.9% RC SCH ×3 (12:22→23:49)
[2022-10-28] MEDS: VANCOMYCIN RC SCH ×3 (12:22→23:49)
[2022-10-28] MEDS: MULTIVITAMIN IV SCH ×3 (19:36)
[2022-10-28] MEDS: DEXTROSE IV SCH ×3 (19:36)
[2022-10-28] MEDS: AMINO ACIDS 8.5% IV SCH ×3 (19:36)
--- NOTE | 2022-10-28 22:00 | NUR ---
oral care given, repositioned
[2022-10-28] MEDS ORDERED: VANCOMYCIN 500 MG VIAL ONE (22:46)
--- NOTE | 2022-10-28 22:50 | NUR ---
190- report given at bedside by IAN day shift icu nurse
--- NOTE | 2022-10-28 22:51 | NUR ---
2000-Pt is sedated with Versed 1mg/hr and Fentanyl at 50 mg/hr and amiodarone at 1mg /and levophed at 12mcg/min ; vasopressin at 0.3 units /min and TPN at 70ml/hr Intubated orally with ac- 20, tv-450, 30% fio2 and peep- 5.No resp distress. UP on high fowlers position and restraints secured both wrist
--- NOTE | 2022-10-28 23:32 | NUR ---
2200- REMAINS SEDATED AND ON SR
[2022-10-29] VITALS (30 sets, daily range): BP systolic 89–122; BP diastolic 56–86
[2022-10-29] MEDS: VASOPRESSIN 40 UNITS in NACL 0.9% 250 ML IV SCH ×2 (00:07→23:27)
--- NOTE | 2022-10-29 00:31 | NUR ---
0000-ORAL CARE DONE , REPOSITIONED. AMNIODARONE DRIP DOWN TO 0.5MG / MIN ORDERED
[2022-10-29] MEDS ORDERED: AMIODARONE 450 MG in DEXTROSE 5% 250 ML IV SCH (00:35)
[2022-10-29] MEDS: Z-GUARD PASTE TP SCH ×2 (00:56→12:20)
--- NOTE | 2022-10-29 03:10 | NUR ---
0200- REPOSITIONED . SUCTIONED ORALL OBTAIN THICK CLEAR WHITE SECRETION IN MODERATE AMT. AND END
[2022-10-29] MEDS ORDERED: AMIODARONE 150 MG/3 ML VIAL IV ONE (03:47)
[2022-10-29 04:34] LABS: BASOPHILS % (AUTO) 0.1 % (0.0-2.0); EOSINOPHILS # (AUTO) 0.2 K/uL (0-0.4); EOSINOPHILS % (AUTO) 0.9 % (0.0-4.0); HEMATOCRIT 25.6 % (36-52); HEMOGLOBIN 8.6 g/dL (12.0-18.0); LYMPHOCYTES # (AUTO) 0.9 K/uL (2.0-11.5); LYMPHOCYTES % (AUTO) 4.7 % (20.5-51.1); MEAN CORPUSCULAR HEMOGLOBIN 32 pg (27-31); MEAN CORPUSCULAR HGB CONC 34 g/dL (33-37); MEAN CORPUSCULAR VOLUME 93.5 fL (80-94); MONOCYTES % (AUTO) 5.1 % (1.7-9.3); NEUTROPHILS # (AUTO) 16.6 K/uL (1.8-7.7); NEUTROPHILS % (AUTO) 89.2 % (42.2-75.2); PLATELET COUNT (AUTO) 329 K/uL (140-450); RED BLOOD CELL COUNT(AUTO) 2.74 MIL/uL (4.20-6.10); WHITE BLOOD COUNT (AUTO) 18.7 K/uL (4.8-10.8)
[2022-10-29 04:46] LABS: ANION GAP 7.4 (8-16); CARBON DIOXIDE 28.6 mmol/L (21-32); CREATININE 0.5 mg/dL (0.6-1.3)
[2022-10-29 04:51] LABS: PHOSPHORUS 2.5 mg/dL (2.5-4.9)
[2022-10-29] MEDS: VANCOMYCIN HCL 25 MG/ML SOLN GT SCH ×3 (05:20→17:01)
[2022-10-29] MEDS ORDERED: VANCOMYCIN 500 MG VIAL ONE (05:25)
--- NOTE | 2022-10-29 05:51 | NUR ---
0400-COMPLETE BED BATH GIVEN AND COPLTETE LINEN CHANGED DONE
[2022-10-29] MEDS: BLOOD GLUCOSE MONITORING 1 DEV DEV MC SCH ×3 (06:01→17:27)
[2022-10-29] MEDS: INSULIN LISPRO SLIDING SCALE 100 UNITS/ML VIAL SUBQ PRN (06:01)
[2022-10-29] MEDS: VANCOMYCIN RC SCH ×3 (06:04→17:01)
[2022-10-29] MEDS: NACL 0.9% RC SCH ×3 (06:04→17:01)
--- NOTE | 2022-10-29 06:17 | NUR ---
0600- BS- 156, 2 UNITS OF LISPRO GIVEN SQ
[2022-10-29] MEDS ORDERED: KCL 20 MEQ IN 100 mL PREMIX 200 ML IV ONE ×3 (06:35→06:43)
--- NOTE | 2022-10-29 06:39 | NUR ---
0630- K+LEVEL IS 3.[address] EVANS WAS PAGED AND RELAYED LOW K=3.0 AND ORDERED K= RIDER 40 MEQ
[2022-10-29] MEDS ORDERED: VANCOMYCIN PER PHARMACY MC PRN (07:15)
[2022-10-29] MEDS: FAMOTIDINE 20 MG/2 ML VIAL IV SCH ×2 (08:01→20:10)
[2022-10-29] MEDS: DEXMEDETOMIDINE HCL 400 MCG in NACL 0.9% 96 ML IV PRN ×2 (09:55→20:49)
[2022-10-29] MEDS ORDERED: NOREPINEPHRINE 4 MG/4 ML VIAL IV ONE (10:54)
[2022-10-29] MEDS: NOREPINEPHRINE 8 MG in DEXTROSE 5% 250 ML IV PRN ×2 (11:14→23:34)
[2022-10-29] MEDS ORDERED: AMIODARONE 200 MG TAB PO SCH (14:00)
[2022-10-29] MEDS: VANCOMYCIN 1,000 MG in DEXTROSE 5% 250 ML IV SCH (20:08)
[2022-10-29] MEDS: DEXTROSE IV SCH ×3 (20:17)
[2022-10-29] MEDS: AMINO ACIDS 8.5% IV SCH ×3 (20:17)
[2022-10-29] MEDS: MULTIVITAMIN IV SCH ×3 (20:17)
[2022-10-29] MEDS: AMIODARONE 200 MG TAB PO SCH (20:18)
[2022-10-29] MEDS: MORPHINE SULFATE 2 MG/ML SYR IVP PRN (22:36)
--- NOTE | 2022-10-29 23:02 | NUR ---
190-[facility] GAVE A BEDSIDE REPORTOFTHE PT
--- NOTE | 2022-10-29 23:03 | NUR ---
1999- TACHYPNEIC UPON RECEIPT 33/MIN AND OFF VERSED AND FENTANYL DRIPS . IN NO ACUTE DISTRESS REPIRATORY TEE
--- NOTE | 2022-10-29 23:07 | NUR ---
2236- TACHPNEIC AND AGITATED TRIGGERING THE VENT, MORPHINE 2 MG IVP WAS GIVEN
[2022-10-30] VITALS (27 sets, daily range): BP systolic 81–128; BP diastolic 50–91
[2022-10-30] MEDS: NACL 0.9% RC SCH ×4 (00:57→17:28)
[2022-10-30] MEDS: VANCOMYCIN RC SCH ×4 (00:57→17:28)
[2022-10-30] MEDS: Z-GUARD PASTE TP SCH ×2 (00:59→12:08)
[2022-10-30] MEDS: BLOOD GLUCOSE MONITORING 1 DEV DEV MC SCH ×4 (01:00→18:09)
[2022-10-30] MEDS: INSULIN LISPRO SLIDING SCALE 100 UNITS/ML VIAL SUBQ PRN ×2 (01:13→05:47)
[2022-10-30] MEDS: LORazepam 2 MG/ML VIAL IVP PRN (01:57)
[2022-10-30] MEDS: DEXMEDETOMIDINE HCL 400 MCG in NACL 0.9% 96 ML IV PRN ×3 (03:13→22:56)
--- NOTE | 2022-10-30 03:21 | NUR ---
0000- repositioned to sides, oral care done hob up fowlers pos.
--- NOTE | 2022-10-30 03:23 | NUR ---
0200- suctioned endotracheally and orally obtaining loose white secretions in mod. amt. oral care done
--- NOTE | 2022-10-30 04:00 | NUR ---
complete bed bath and linen changed done
[2022-10-30 05:44] LABS: ANION GAP 10.2 (8-16); CARBON DIOXIDE 26.5 mmol/L (21-32); CREATININE 0.5 mg/dL (0.6-1.3); MAGNESIUM 1.7 mg/dL (1.8-2.4); PHOSPHORUS 2.2 mg/dL (2.5-4.9); POTASSIUM 3.7 mmol/L (3.5-5.1)
[2022-10-30] MEDS: VANCOMYCIN HCL 25 MG/ML SOLN GT SCH ×4 (05:44→17:27)
--- NOTE | 2022-10-30 07:00 | NUR ---
Opening Received report on pt. Pt intubated and sedated with precedex drip, in no signs of pain or distress. Pt also on levophed and vasopressin drip, and receiving TPN. NGT right nare to suction, brown output noted. PEG tube clamped. Wilkins in place draining urine to gravity. Bilateral soft wrist restraints in place for safety. Bilateral heels offloaded with pillow and heel protector boots. Flexiseal with brown liquid output.
[2022-10-30] MEDS: ALGINATE DRESSING MC SCH (08:05)
[2022-10-30] MEDS: VANCOMYCIN 1,000 MG in DEXTROSE 5% 250 ML IV SCH ×2 (08:09→21:13)
[2022-10-30] MEDS: AMIODARONE 200 MG TAB PO SCH ×2 (08:09→21:14)
[2022-10-30] MEDS: FAMOTIDINE 20 MG/2 ML VIAL IV SCH ×2 (08:10→21:13)
[2022-10-30 08:35] LABS: HEMATOCRIT 28.4 % (36-52); HEMOGLOBIN 9.3 g/dL (12.0-18.0); MEAN CORPUSCULAR HEMOGLOBIN 31 pg (27-31); MEAN CORPUSCULAR HGB CONC 33 g/dL (33-37); MEAN CORPUSCULAR VOLUME 94.8 fL (80-94); PLATELET COUNT (AUTO) 465 K/uL (140-450); RED CELL DISTRIBUTION WIDTH 13.7 % (11.6-13.7)
[2022-10-30] MEDS ORDERED: POTASSIUM CHLORIDE 10 MEQ TABER PO ONE (08:45)
--- NOTE | 2022-10-30 09:00 | NUR ---
Dr. Antonio rounding on pt, states to have pt on CPAP trials daily and to start tube feeding on pt if okay with surgeon.
[2022-10-30 09:03] LABS: WHITE BLOOD COUNT (AUTO) 25.2 K/uL (4.8-10.8)
[2022-10-30 09:05] LABS: LYMPHOCYTES % (MANUAL) 5 % (20-46); MONOCYTES % (MANUAL) 3 % (5-12)
--- NOTE | 2022-10-30 10:49 | NUR ---
Pt's at bedside, updated with plan of care, questions answered.
--- NOTE | 2022-10-30 11:29 | NUR ---
PER LEGAL INSTRUCTOR PT TO HAVE DAILY SBT CPAP TRIALS. PT PLACED ON CPAP 5 PS 5 AND FIO2 30%. ALARMS ON AND FUNCTIONING.
--- NOTE | 2022-10-30 13:37 | NUR ---
PT COMPLETED THE SBT OF 2 HOURS. DURING THIS TIME RR RANGED FROM 28-34, VT 430-460. PT DOES NOT OPEN EYES AND DOES NOT FOLLOW COMMANDS. VITALS SIGNS REMAINED WITHIN NORMAL RANGE.
--- NOTE | 2022-10-30 14:54 | NUR ---
10/30/22 RD FOLLOW UP COMPLETED PLEASE REFER TO NUTRITION ASSESSMENT UNDER CARE ACTIVITY FOR ESTIMATED NUTRITIONAL NEEDS. 1. MONITOR BLOOD GLUCOSE LEVELS AND GI SYMPTOMS 2. WHEN/IF MEDICALLY APPROPRIATE TO START TF, RECOMMEND GLUCERNA 1.2 AT GOAL RATE 70 ML/HR WITH RANDI BID FOR WOUND SUPPORT, FWF 200 ML Q6H TOLERATED - START TF AT 1O ML/HR INCREASE BY 1O ML Q4H UNTIL GOAL IS REACHED TOLERATED - WITH RANDI BID (PROVIDES 160 KCAL AND 5 GM PROTEIN DAILY) WILL PROVIDES 1680 ML TOTAL VOLUME, 2176 KCAL, 105 GM PROTEIN AND 2152 ML FREE WATER DAILY MEETING 98% ESTIMATED KCAL NEEDS AND 100% ESTIMATED PROTEIN NEEDS; ADEQUATE 3. CONSULT RD PRN 4. RD TO FOLLOW-UP 2-3 DAYS, HIGH RISK REVIEWED BY BARBARA YEE RD Addendum: 10/30/22 at [address] RECOMMEND GLUCERNA 1.2 AT GOAL RATE 55 ML/HR WITH RANDI BID FOR WOUND SUPPORT, FWF 100 ML Q4H TOLERATED - START TF AT 1O ML/HR INCREASE BY 1O ML Q4H UNTIL GOAL IS REACHED TOLERATED - WITH RANDI BID (PROVIDES 160 KCAL AND 5 GM PROTEIN DAILY) WILL PROVIDES 1320 ML TOTAL VOLUME, 1744 KCAL, 84 GM PROTEIN AND 1662 ML FREE WATER DAILY MEETING 78% ESTIMATED KCAL NEEDS AND 95% ESTIMATED PROTEIN NEEDS; ADEQUATE
--- NOTE | 2022-10-30 16:52 | NUR ---
Dr. Keating rounding on pt, sates okay to start feeding after TPN is complete. New orders made.
--- NOTE | 2022-10-30 19:14 | NUR ---
Closing Pt in no signs of pain or distress, remains intubated and sedated. Updates given to pt's Edison Gonzalez. Endorsed plan of care to RN.
[2022-10-30] MEDS: DEXTROSE IV SCH ×6 (20:00→20:03)
[2022-10-30] MEDS: AMINO ACIDS 8.5% IV SCH ×6 (20:00→20:03)
[2022-10-30] MEDS: MULTIVITAMIN IV SCH ×6 (20:00→20:03)
[2022-10-30] MEDS: NOREPINEPHRINE 8 MG in DEXTROSE 5% 250 ML IV PRN (21:28)
[2022-10-31] VITALS (32 sets, daily range): BP systolic 95–123; BP diastolic 52–86
[2022-10-31] MEDS: VANCOMYCIN HCL 25 MG/ML SOLN GT SCH ×4 (00:22→17:23)
[2022-10-31] MEDS: VANCOMYCIN RC SCH ×4 (00:26→17:23)
[2022-10-31] MEDS: NACL 0.9% RC SCH ×4 (00:26→17:23)
[2022-10-31] MEDS: NOREPINEPHRINE 8 MG in DEXTROSE 5% 250 ML IV PRN ×3 (00:29→23:15)
[2022-10-31] MEDS: BLOOD GLUCOSE MONITORING 1 DEV DEV MC SCH ×4 (00:42→17:22)
[2022-10-31] MEDS: Z-GUARD PASTE TP SCH ×2 (01:23→12:20)
[2022-10-31] MEDS: INSULIN LISPRO SLIDING SCALE 100 UNITS/ML VIAL SUBQ PRN ×3 (01:37→17:27)
[2022-10-31 05:27] LABS: ANION GAP 10.9 (8-16); CREATININE 0.5 mg/dL (0.6-1.3); POTASSIUM 3.9 mmol/L (3.5-5.1)
[2022-10-31] MEDS: VASOPRESSIN 40 UNITS in NACL 0.9% 250 ML IV SCH (06:44)
--- NOTE | 2022-10-31 07:15 | NUR ---
Opening Received report on pt. Pt intubated and sedated with precedex, no signs of pain noted. Pt also on levophed, vasopressin, and TPN. NGT in place connected to suction. Tube feeding to be started today with PEG tube and discontinue NGT. Wilkins in place draining urine to gravity. Flexiseal with liquid brown stool. Bilateral soft wrist restraints in place for safety, no skin breakdown noted, pulses present.
--- NOTE | 2022-10-31 07:30 | NUR ---
Central line dressing change done with sterile technique.
[2022-10-31 07:52] LABS: MAGNESIUM 1.7 mg/dL (1.8-2.4); PHOSPHORUS 3.8 mg/dL (2.5-4.9)
[2022-10-31 08:00] LABS: BASOPHILS # (AUTO) 0.1 K/uL (0.00-0.22); BASOPHILS % (AUTO) 0.2 % (0.0-2.0); EOSINOPHILS # (AUTO) 0.2 K/uL (0-0.4); EOSINOPHILS % (AUTO) 0.7 % (0.0-4.0); HEMATOCRIT 30.1 % (36-52); LYMPHOCYTES % (AUTO) 3.7 % (20.5-51.1); MEAN CORPUSCULAR HEMOGLOBIN 31 pg (27-31); MEAN CORPUSCULAR HGB CONC 33 g/dL (33-37); MEAN CORPUSCULAR VOLUME 93.8 fL (80-94); MONOCYTES # (AUTO) 1.3 K/uL (0.8-1.0); MONOCYTES % (AUTO) 4.8 % (1.7-9.3); NEUTROPHILS # (AUTO) 24.2 K/uL (1.8-7.7); NEUTROPHILS % (AUTO) 90.6 % (42.2-75.2); PLATELET COUNT (AUTO) 595 K/uL (140-450); RED BLOOD CELL COUNT(AUTO) 3.21 MIL/uL (4.20-6.10); RED CELL DISTRIBUTION WIDTH 13.9 % (11.6-13.7)
[2022-10-31] MEDS: ALBUTEROL SULFATE/IPRATROPIU 3 ML SOL IH PRN (08:04)
--- NOTE | 2022-10-31 08:05 | NUR ---
RECEIVED ON A [employer] VENTILATOR PLUGGED INTO RED OUTLET TO AN ENDOTRACHEAL TUBE #8.0 SECURED A5 25cm TEETH/GUM LINE WITH AN ANCHOR FAST CUFF PRESSURE CHECKED NOTED AMBU BAG AT BEDSIDE PATIENT TACHYPNEIC AT MID 30'S BPM PRE AND POST SUCTIONING REVIEWED CURRENT VENTILATOR Vt SET AT 450ml; [facility] PREDICTED BODY WEIGHT (PBW) 6ml/kg = 470ml; INCREASED Vt TO 500 ml TO MEET PATIENT DEMAND; REVIEWED CXR 10/27; PATIENT CANDIDATE FOR SCHEDULED HHN THERAPY AND CPT Addendum: 10/31/22 at 1145 by Willam Carmona RT BEN/INDUSTRIAL COMMERCIAL GROUNDSKEEPER NOTIFIED OF VENTILATOR Vt CHANGE
[2022-10-31] MEDS: FAMOTIDINE 20 MG/2 ML VIAL IV SCH ×2 (08:53→21:00)
[2022-10-31] MEDS: AMIODARONE 200 MG TAB PO SCH ×2 (08:53→21:01)
[2022-10-31] MEDS: FOAM DRESSING TP SCH (08:55)
[2022-10-31] MEDS: VANCOMYCIN 1,000 MG in DEXTROSE 5% 250 ML IV SCH (08:59)
[2022-10-31] MEDS: DEXMEDETOMIDINE HCL 400 MCG in NACL 0.9% 96 ML IV PRN (09:30)
[2022-10-31 09:32] LABS: WHITE BLOOD COUNT (AUTO) 26.7 K/uL (4.8-10.8)
[2022-10-31] MEDS ORDERED: MEROPENEM 1,000 MG in NACL 0.9% 50 ML IV STA (10:16)
--- NOTE | 2022-10-31 10:23 | NUR ---
MINIMAL SEDATION PRECEDEX 0.4mg; STABLE RESTING WELL GOOD CHEST RISE ENDOTRACHEAL SUCTION FOR MODERATE THIN YELLOW/HAZY SECRETIONS AIRWAY PATENT
--- NOTE | 2022-10-31 10:25 | NUR ---
PRECEDEX TITRATED TO 0.2mcg BY BEN/HOUSE FURNISHINGS SUPERVISOR; PLACED ON CPAP TRIAL NOTED TOLERATING WELL WITHOUT PULMONARY DISTRESS NOTED GOOD CHEST RISE AND AERATION THROUGHOUT LUNG FRANCIS AIRWAY PATENT; PATIENT UNABLE TO FULLY PARTICIPATE IN WEAN PARAMETERS; FOREMENTIONED RN NOTIFIED OF CPAP VENTILATOR SETTINGS
[2022-10-31] MEDS: MEROPENEM 1,000 MG in NACL 0.9% 50 ML IV SCH ×2 (12:21→21:00)
[2022-10-31] MEDS: ALBUTEROL SULFATE/IPRATROPIU 3 ML SOL IH SCH ×2 (13:35→20:26)
--- NOTE | 2022-10-31 13:35 | NUR ---
SEDATED RESTING WELL TOLERATING CPAP TRIAL NOTED NO DISTRESS NOTED GOOD CHEST RISE ENDOTRACHEAL SUCTION FOR LARGE THIN YELLOW SECRETIONS AIRWAY PATENT
[2022-10-31] MEDS ORDERED: COMMUNICATION ORDER MC PRN (14:25)
--- NOTE | 2022-10-31 14:27 | NUR ---
WOUND CARE RE-EVALUATION NOTE: RT AT BED SIDE DURING ASSESSMENT. PT. NO S/S OF RESPIRATORY DISTRESS.SKIN CONDITION NO CHANGE, WILL CONTINUE SAME TREATMENT, BILATERAL HEEL RAISERS IN PLACE WITH OFFLOADING. -PRESSURE INJURY TO RIGHT ABOVE HEEL ACHILLEA BONY AREA. PARTIAL THICKNESS SKIN LOSS 1X1.5X0.2CM,WOUND BED 100% RED MOIST, NO ODOR, LEATHA-WOUND SKIN DRY HEALING SCAR TISSUE. -LEFT HEEL HEALED SCAR WITH BLANCHABLE REDNESS SACRALCOCCYX BLANCHABLE REDNESS 3X5CM, FOAM DRESSING APPLIED.
--- NOTE | 2022-10-31 15:42 | NUR ---
TOLERATING CPAP TRIAL NOTED EQUAL CHEST RISE ENDOTRACHEAL SUCTION FOR MODERATE THIN YELLOW SECRETIONS AIRWAY PATENT
--- NOTE | 2022-10-31 15:45 | NUR ---
PLACED BACK ON AC MODE TO REST PATIENT AT THIS TIME TOLERATED CPAP TRIAL X 5.5 HOURS GOOD CHEST RISE AND AERATION THROUGHOUT BILATERAL LUNG FRANCIS AIRWAY PATENT BEN/CREDIT RISK OFFICER NOTIFIED OF VENTILATOR MODE CHANGE
--- NOTE | 2022-10-31 17:32 | NUR ---
SEDATED STABLE RESTING COMFORTABLY GOOD CHEST RISE AIRWAY PATENT
--- NOTE | 2022-10-31 18:38 | NUR ---
Closing Pt remains intubated and sedated. Able to tolerate CPAP trial and sedation vacation. Pt also with tube feeding, noted 80 ml residual but with copious amount diarrhea. PA for Dr. Keating rounded on pt, states to keep tube feeding at slow rate. TPN still infusing. Wilkins draining urine to gravity. Flexiseal bag replaced. Will endorse plan of care to RN.
[2022-10-31] MEDS: AMINO ACIDS 8.5% IV SCH ×3 (20:00)
[2022-10-31] MEDS ORDERED: DEXTROSE IV SCH ×3 (20:00)
[2022-10-31] MEDS ORDERED: AMINO ACIDS 8.5% IV SCH ×3 (20:00)
[2022-10-31] MEDS ORDERED: MULTIVITAMIN IV SCH ×3 (20:00)
[2022-10-31] MEDS: DEXTROSE IV SCH ×3 (20:00)
[2022-10-31] MEDS: MULTIVITAMIN IV SCH ×3 (20:00)
--- NOTE | 2022-10-31 20:15 | NUR ---
PER MD CAPPS ORDER, NGT REMOVED WITH TF STARTED ON PEG.
--- NOTE | 2022-10-31 20:26 | NUR ---
RECEIVED REPORT FROM AM SHIFT. PATIENT WAS SEEN AND ASSESSED. PATIENT IS SEDATED AND INTUBATED WITH ETT SIZE 8.0 AND SECURED WITH A BITING BLOCK ANCHOR-FAST 25cm @ TEETH. PATIENT IS ON VENTILATOR SUPPORT. VENT SETTINGS: AC/VC RR 20, VT 500, PEEP 5, FiO2 30% WITH SPO2 OF 95%. VENTILATOR PLUGGED IN RED OUTLET. VENTILATOR ALARMS SET APPROPRIATELY AND AUDIBLE TO ENVIRONMENT. AMBU BAG AT BEDSIDE. HEAD OF BED GREATER THAN 30 DEGREES. NOTICED ADEQUATE BILATERAL CHEST RISE AND FALL. PATIENT IS IN NO RESPIRATORY DISTRESS AT THIS TIME. SUCTIONED MODERATE WHITE/YELLOW THIN SECRETIONS FROM ETT AND SMALL WHITE THIN ORALLY. ORAL CARE WAS DONE AND PT TOLERATED WELL. BILATERAL BREATH SOUNDS ON AUSCULTATION; UPPER LOBES: COARSE CRACKLES LOWER LOBES: COARSE CRACKLES PEAK PRESSURE: 17 cmH20 PLATEAU PRESSURE: 16 cmH20 DRIVING PRESSURE: 11 cmH20 WILL CONTINUE TO MONITOR PATIENT. SCHEDULE TX AND CPT GIVEN ORDERED AND PT TOLERATED WELL WITH NO ADVERSE REACTION WILL CONTINUE TO MONITOR PATIENT.
[2022-10-31] MEDS: VANCOMYCIN 1,000 MG in NACL 0.9% 250 ML IV SCH (21:30)
--- NOTE | 2022-10-31 23:21 | NUR ---
PT DESATURATING IN LOW 80s. FiO2 WAS TITRATED FROM 30 TO 50%. SPO2 97%. PT TOLERATING WELL. RN NOTIFIED. WILL CONTINUE TO MONITOR PT
[2022-11-01] VITALS (30 sets, daily range): BP systolic 100–125; BP diastolic 61–76
--- NOTE | 2022-11-01 | NUR ---
PEG TUBE RESIDUALS AT 300CC. TF HELD. GT VANCOMYCIN GIVEN WITH 30CC OF H20, TO REASSESS.
[2022-11-01] MEDS: BLOOD GLUCOSE MONITORING 1 DEV DEV MC SCH ×4 (00:11→18:11)
[2022-11-01] MEDS: VANCOMYCIN RC SCH ×5 (00:22→23:34)
[2022-11-01] MEDS: NACL 0.9% RC SCH ×5 (00:22→23:34)
[2022-11-01] MEDS: VANCOMYCIN HCL 25 MG/ML SOLN GT SCH ×5 (00:22→23:30)
[2022-11-01] MEDS: Z-GUARD PASTE TP SCH ×2 (00:23→13:50)
[2022-11-01 00:50] LABS: CREATININE,URINE RANDOM 47 mg/dL (30-125); URINE SODIUM, RANDOM 76 mmol/l (40-220)
[2022-11-01] MEDS: ALBUTEROL SULFATE/IPRATROPIU 3 ML SOL IH SCH ×4 (01:34→20:00)
--- NOTE | 2022-11-01 01:34 | NUR ---
SPO2 97%. FiO2 WAS TITRATED FROM 50% TO 40%. SPO2 95%. PT TOLERATING WELL. RN NOTIFIED. WILL CONTINUE TO MONITOR PT
[2022-11-01] MEDS: DEXMEDETOMIDINE HCL 400 MCG in NACL 0.9% 96 ML IV PRN ×3 (03:55→20:25)
--- NOTE | 2022-11-01 04:15 | NUR ---
SPO2 99%. FiO2 WAS TITRATED FROM 40% TO 30%. SPO2 96%. PT TOLERATING WELL. RN NOTIFIED. WILL CONTINUE TO MONITOR PT
[2022-11-01 05:28] LABS: ANION GAP 9.2 (8-16); CARBON DIOXIDE 27.2 mmol/L (21-32); CREATININE 0.5 mg/dL (0.6-1.3); POTASSIUM 4.4 mmol/L (3.5-5.1)
--- NOTE | 2022-11-01 05:29 | NUR ---
PEG TUBE RESIDUALS AT 150CC. GT VANCO GIVEN ONLY. TO HOLD TF AND REPORT TO . PT ON TPN CURRENTLY AT 70CC/HR.
[2022-11-01 05:30] LABS: ALBUMIN 1.3 g/dL (3.4-5.0)
[2022-11-01] MEDS: MEROPENEM 1,000 MG in NACL 0.9% 50 ML IV SCH ×3 (05:30→20:23)
--- NOTE | 2022-11-01 08:00 | NUR ---
PATIENT IN BED, NO SIGNS OR SYMPTOMS OF DISTRESS. INTUBATED AND ON VENTILATOR. YANG CATHETER DRAINING TO GRAVITY. FLEXISEAL DRAINING TO GRAVITY LIQUID STOOL. PATIENT OPENS EYES BUT DOES NOT FOLLOW COMMANDS. THICK ENDOTRACHEAL SECRETIONS, SUCTIONING PROVIDED.
[2022-11-01] MEDS: AMIODARONE 200 MG TAB PO SCH ×2 (09:25→20:33)
[2022-11-01] MEDS: FAMOTIDINE 20 MG/2 ML VIAL IV SCH ×2 (09:25→20:32)
[2022-11-01] MEDS: VANCOMYCIN 1,000 MG in NACL 0.9% 250 ML IV SCH ×2 (09:26→20:57)
[2022-11-01] MEDS ORDERED: DEXT 5% /NACL 0.9% 1,000 ML IV SCH (09:45)
--- NOTE | 2022-11-01 10:20 | NUR ---
PLACED PATIENT ON CPAP OF 8 WITH PEEP OF 5 AND FIO2 28. PATIENT IS AWAKE AND ALERT. PATIENT IS NOT FOLLOWING COMMANDS AT THIS TIME. PATIENT AIRWAY IS PATENT AND SECURE WITH TUBE STEPHENS. AMBU BAG IS AT BEDSIDE. VENTILATOR WHEELS ARE LOCKED AND VENTILATOR IS PLUGGED INTO RED OUTLET. ALARMS ARE SET AND AUDIBLE TO ENVIRONMENT. ADEQUATE CHEST RISE AND FALL NOTED. BREATH SOUNDS ARE BILATERAL TO AUSCULTATION. PATIENT SHOWS NO SIGNS OF RESPIRATORY DISTRESS. WILL CONTINUE TO MONITOR.
[2022-11-01 10:23] LABS: BASOPHILS # (AUTO) 0.2 K/uL (0.00-0.22); BASOPHILS % (AUTO) 0.5 % (0.0-2.0); EOSINOPHILS # (AUTO) 0.2 K/uL (0-0.4); EOSINOPHILS % (AUTO) 0.6 % (0.0-4.0); HEMATOCRIT 26.4 % (36-52); HEMOGLOBIN 8.8 g/dL (12.0-18.0); LYMPHOCYTES # (AUTO) 0.9 K/uL (2.0-11.5); MEAN CORPUSCULAR HEMOGLOBIN 32 pg (27-31); MEAN CORPUSCULAR HGB CONC 33 g/dL (33-37); MEAN CORPUSCULAR VOLUME 94.3 fL (80-94); MONOCYTES # (AUTO) 1.5 K/uL (0.8-1.0); MONOCYTES % (AUTO) 5.2 % (1.7-9.3); NEUTROPHILS # (AUTO) 26.5 K/uL (1.8-7.7); NEUTROPHILS % (AUTO) 90.7 % (42.2-75.2); PLATELET COUNT (AUTO) 627 K/uL (140-450); RED BLOOD CELL COUNT(AUTO) 2.79 MIL/uL (4.20-6.10); RED CELL DISTRIBUTION WIDTH 14.1 % (11.6-13.7)
[2022-11-01 10:35] LABS: WHITE BLOOD COUNT (AUTO) 29.2 K/uL (4.8-10.8)
--- NOTE | 2022-11-01 12:00 | NUR ---
PATIENT STATUS UNCHANGED. NO SIGNS OR SYMPTOMS OF DISTRESS.
[2022-11-01] MEDS ORDERED: METOCLOPRAMIDE 10 MG/2 ML INJ VIAL IVP PRN (12:10)
[2022-11-01] MEDS: MICAFUNGIN SODIUM 100 MG in NACL 0.9% 100 ML IV SCH (12:20)
[2022-11-01] MEDS: VASOPRESSIN 40 UNITS in NACL 0.9% 250 ML IV SCH (17:39)
--- NOTE | 2022-11-01 18:00 | NUR ---
PATIENT LINENS CHANGED. FLEXISEAL AND YANG CATHETER INTACT AND DRAINING TO GRAVITY.
--- NOTE | 2022-11-01 19:10 | NUR ---
RECEIVED REPORT FROM [facility] NURSE DIMITRIS MOONEY. ALL CARES ASSUMED. RECEIVED PATIENT SEDATED ON BED, SIDE RAILS RAISED UP. WITH ETT TO VENT, EQUAL CHEST RISE AND FALL NOTED - SPO2 OF 98% NO DISTRESS. WITH RIGHT IJ CATHETER - DRY AND INTACT WITH D5NS 1L AT 70 ML/HR, PRECEDEX 0.8 MCG/KG/HR, LEVOPHED AT 4 MCG/MIN, VASOPRESSIN 0.02 UNITS/MIN, NS AT TKO - ALL FLUIDS FLOWING WELL. ON SINUS RHYTHM. WITH G-TUBE ATTACHED AT 10 ML/HR. WITH WOUND DRESSING ON THE RIGHT HEEL, WITH HEEL PROTECTOR IN PLACE. WITH YANG CATHETER DRAINING BY GRAVITY. WITH FLEXISEAL INTACT. ON CONTACT PRECAUTION. WITH BILATERAL SOFT WRIST RESTRAINTS.
[2022-11-01] MEDS ORDERED: DEXMEDETOMIDINE HCL 100 MCG/ML 2 ML VIAL IV ONE (19:30)
[2022-11-01] MEDS: MULTIVITAMIN IV SCH ×4 (20:12)
[2022-11-01] MEDS: AMINO ACIDS IV SCH ×4 (20:12)
[2022-11-01] MEDS: [UNRECOGNIZED DRUG - OTHER] IV SCH ×4 (20:12)
[2022-11-01] MEDS: DEXTROSE IV SCH ×4 (20:12)
--- NOTE | 2022-11-01 20:30 | NUR ---
RECEIVED REPORT FROM AM SHIFT. PATIENT WAS SEEN AND ASSESSED. PATIENT IS SEDATED AND INTUBATED WITH ETT SIZE 8.0 AND SECURED WITH A BITING BLOCK ANCHOR-FAST 25cm @ TEETH. PATIENT IS ON VENTILATOR SUPPORT. VENT SETTINGS: AC/PRVC RR 20, VT 500, PEEP 5, FiO2 30% WITH SPO2 OF 94%. VENTILATOR PLUGGED IN RED OUTLET. VENTILATOR ALARMS SET APPROPRIATELY AND AUDIBLE TO ENVIRONMENT. AMBU BAG AT BEDSIDE. HEAD OF BED GREATER THAN 30 DEGREES. NOTICED ADEQUATE BILATERAL CHEST RISE AND FALL. PATIENT IS IN NO RESPIRATORY DISTRESS AT THIS TIME. SUCTIONED LARGE YELLOW THIN SECRETIONS FROM ETT AND SMALL WHITE THIN ORALLY. ORAL CARE WAS DONE AND PT TOLERATED WELL. BILATERAL BREATH SOUNDS ON AUSCULTATION; UPPER LOBES: COARSE CRACKLES LOWER LOBES: COARSE CRACKLES PEAK PRESSURE: 20 cmH20 PLATEAU PRESSURE: 19 cmH20 DRIVING PRESSURE: 14 cmH20 WILL CONTINUE TO MONITOR PATIENT. SCHEDULE TX AND CPT GIVEN ORDERED AND PT TOLERATED WELL WITH NO ADVERSE REACTION WILL CONTINUE TO MONITOR PATIENT.
[2022-11-02] VITALS (32 sets, daily range): BP systolic 91–150; BP diastolic 44–83
[2022-11-02] MEDS: BLOOD GLUCOSE MONITORING 1 DEV DEV MC SCH ×4 (00:05→18:27)
[2022-11-02] MEDS: ALBUTEROL SULFATE/IPRATROPIU 3 ML SOL IH SCH ×4 (00:13→18:40)
[2022-11-02] MEDS ORDERED: DEXMEDETOMIDINE HCL 100 MCG/ML 2 ML VIAL IV ONE (01:16)
[2022-11-02] MEDS: DEXMEDETOMIDINE HCL 400 MCG in NACL 0.9% 96 ML IV PRN ×3 (01:26→18:25)
[2022-11-02] MEDS: Z-GUARD PASTE TP SCH ×2 (03:00→14:17)
[2022-11-02] MEDS: MEROPENEM 1,000 MG in NACL 0.9% 50 ML IV SCH ×3 (05:00→21:32)
[2022-11-02] MEDS: NACL 0.9% RC SCH ×3 (05:20→18:02)
[2022-11-02] MEDS: VANCOMYCIN RC SCH ×3 (05:20→18:02)
[2022-11-02] MEDS: VANCOMYCIN HCL 25 MG/ML SOLN GT SCH ×3 (05:21→18:01)
[2022-11-02] MEDS ORDERED: NOREPINEPHRINE 4 MG/4 ML VIAL IV ONE (05:56)
[2022-11-02] MEDS: NOREPINEPHRINE 8 MG in DEXTROSE 5% 250 ML IV PRN (06:04)
--- NOTE | 2022-11-02 08:00 | NUR ---
PATIENT IN BED, NO SIGNS OR SYMPTOMS OF DISTRESS, INTUBATED, TRACKS AND FOLLOWS COMMANDS. NO SIGNS OR SYMPTOMS OF DISTRESS.
[2022-11-02] MEDS: VANCOMYCIN 1,000 MG in NACL 0.9% 250 ML IV SCH (08:51)
[2022-11-02] MEDS: AMIODARONE 200 MG TAB PO SCH ×2 (08:54→21:35)
[2022-11-02] MEDS: ALGINATE DRESSING MC SCH (08:54)
[2022-11-02] MEDS: FAMOTIDINE 20 MG/2 ML VIAL IV SCH ×2 (08:57→21:32)
[2022-11-02 09:36] LABS: ANION GAP 10.7 (8-16); BASOPHILS # (AUTO) 0.1 K/uL (0.00-0.22); BASOPHILS % (AUTO) 0.5 % (0.0-2.0); CARBON DIOXIDE 23.3 mmol/L (21-32); CREATININE 0.4 mg/dL (0.6-1.3); EOSINOPHILS # (AUTO) 0.2 K/uL (0-0.4); EOSINOPHILS % (AUTO) 0.7 % (0.0-4.0); HEMATOCRIT 25.6 % (36-52); HEMOGLOBIN 8.6 g/dL (12.0-18.0); LYMPHOCYTES # (AUTO) 0.9 K/uL (2.0-11.5); LYMPHOCYTES % (AUTO) 4.1 % (20.5-51.1); MEAN CORPUSCULAR HEMOGLOBIN 32 pg (27-31); MEAN CORPUSCULAR HGB CONC 34 g/dL (33-37); MONOCYTES % (AUTO) 4.6 % (1.7-9.3); NEUTROPHILS % (AUTO) 90.1 % (42.2-75.2); PLATELET COUNT (AUTO) 744 K/uL (140-450); RED BLOOD CELL COUNT(AUTO) 2.73 MIL/uL (4.20-6.10); RED CELL DISTRIBUTION WIDTH 13.8 % (11.6-13.7); WHITE BLOOD COUNT (AUTO) 22.2 K/uL (4.8-10.8)
[2022-11-02 09:42] LABS: MAGNESIUM 1.8 mg/dL (1.8-2.4); PHOSPHORUS 3.1 mg/dL (2.5-4.9)
--- NOTE | 2022-11-02 10:30 | NUR ---
PLACED PATIENT ON CPAP OF 5 WITH PEEP OF 5 AND FIO2 28%. PATIENT IS AWAKE AND ALERT. PATIENT IS ABLE TO FOLLOW COMMANDS. ADEQUATE CHEST RISE AND FALL NOTED. BILATERAL BREATH SOUNDS HEARD ON AUSCULTATION. PATIENT SHOWS NO SIGNS OF RESPIRATORY DISTRESS AT THIS TIME. ALARMS ARE SET AND AUDIBLE TO ENVIRONMENT. VENTILATOR IS PLUGGED INTO RED OUTLET. VENTILATOR WHEELS ARE LOCKED. RN NOTIFIED OF TRIAL. WILL CONTINUE TO MONITOR.
--- NOTE | 2022-11-02 10:50 | NUR ---
PATIENT AT BEDSIDE IN PROPER PPE AND EDUCATED ON PROPER CONTACT ISOLATION PRECAUTIONS. EDUCATED ON PATIENT STATUS AND PLAN OF CARE. DISCUSSED THAT PATIENT IS ON BREATHING TRIALS AND EDUCATED ON POSSIBLE OPTIONS IF PATIENT WERE TO FAIL BREATHING TRIALS OR PASS BREATHING TRIALS.
[2022-11-02] MEDS: MICAFUNGIN SODIUM 100 MG in NACL 0.9% 100 ML IV SCH (12:20)
--- NOTE | 2022-11-02 13:54 | NUR ---
11/02/22 RD FOLLOW UP COMPLETED PLEASE REFER TO NUTRITION ASSESSMENT UNDER CARE ACTIVITY FOR ESTIMATED NUTRITIONAL NEEDS. 1. WHEN/IF MEDICALLY APPROPRIATE, RESUME GLUCERNA 1.2 AT GOAL RATE 55 ML/HR WITH RANDI BID FOR WOUND SUPPORT, FWF 100 ML Q4H TOLERATED - START TF AT 1O ML/HR INCREASE BY 1O ML Q4H UNTIL GOAL IS REACHED TOLERATED - WITH RANDI BID (PROVIDES 160 KCAL AND 5 GM PROTEIN DAILY) WILL PROVIDES 1320 ML TOTAL VOLUME, 1744 KCAL, 84 GM PROTEIN AND 1662 ML FREE WATER DAILY MEETING 78% ESTIMATED KCAL NEEDS AND 95% ESTIMATED PROTEIN NEEDS; ADEQUATE 2. CONSULT RD PRN 3. RD TO FOLLOW-UP 2-3 DAYS, HIGH RISK REVIEWED BY BARBARA YEE RD
--- NOTE | 2022-11-02 15:51 | NUR ---
DR KILGORE ROUNDED ON PATIENT, ORDERED TO CONTINUE DAILY CPAP TRIALS. SINCE PATIENT IS HAVING A LOT OF [place] SECRETIONS HE ORDERED LASIX 20 IVP BID.
--- NOTE | 2022-11-02 19:15 | NUR ---
RECEIVED PATIENT ON BED WITH HOB ELEVATED 30 DEGREE; SEDATED RASS -2 ON CONTINOUS PRECEDEX DRIP. ORALLY INTUBATED AND VENTILATED AT 28% FIO2, S02 100%. CARDIACSCOPE SHOWS ON SINUS TACHY HR 102/MIN. ON VASOPRESSIN DRIP 0.02 UNITS/MIN AND TPN AT 70 ML/HR VIA CENTRAL LINE TO RIGHT INTERNAL JUGULAR. ABDOMEN IS SOFT, ACTIVE BOWEL SOUNDS; ON CONTINOUS TUBE FEEDING GLUCERNA 1T 10 ML/HR; TOLERATED WITH MINIMAL RESIDUAL. WITH YANG CATH TO GRAVITY DRAINAGE BAG DRAINING TO CLEAR YELLOW URINE OUTPUT. WITH RECTAL TUBE IN PLACE; INTACT.
--- NOTE | 2022-11-02 20:00 | NUR ---
VASOPRESSIN DRIP STARTED TO TAPER DOWN PER PROTOCOL
[2022-11-02] MEDS: DEXTROSE IV SCH ×4 (20:11)
[2022-11-02] MEDS: [UNRECOGNIZED DRUG - OTHER] IV SCH ×4 (20:11)
[2022-11-02] MEDS: AMINO ACIDS IV SCH ×4 (20:11)
[2022-11-02] MEDS: MULTIVITAMIN IV SCH ×4 (20:11)
--- NOTE | 2022-11-02 20:30 | NUR ---
ORAL CARE DONE WITH VAP KIT; TURNED AND REPOSITIONED PATIENT
[2022-11-02] MEDS: FUROSEMIDE 20 MG/2 ML VIAL IVP SCH (21:37)
[2022-11-02] MEDS: VANCOMYCIN HCL 1.25 GM in NACL 0.9% 250 ML IV SCH (21:37)
[2022-11-03] VITALS (29 sets, daily range): BP systolic 116–151; BP diastolic 47–81
[2022-11-03] MEDS: ALBUTEROL SULFATE/IPRATROPIU 3 ML SOL IH SCH ×4 (01:56→19:16)
--- NOTE | 2022-11-03 02:30 | NUR ---
BP WITHIN NORMAL RANGE; OFF TO VASOPRESSIN DRIP.
[2022-11-03] MEDS: Z-GUARD PASTE TP SCH ×2 (04:00→13:31)
--- NOTE | 2022-11-03 04:30 | NUR ---
MORNING CARE DONE; KEPT CLEAN DRY AND COMFORTABLE.
[2022-11-03] MEDS: MEROPENEM 1,000 MG in NACL 0.9% 50 ML IV SCH ×3 (05:00→21:19)
[2022-11-03] MEDS: VANCOMYCIN RC SCH ×5 (05:39→17:35)
[2022-11-03] MEDS: VANCOMYCIN HCL 25 MG/ML SOLN GT SCH ×4 (05:39→17:35)
[2022-11-03] MEDS: NACL 0.9% RC SCH ×5 (05:39→17:35)
[2022-11-03 05:49] LABS: BASOPHILS # (AUTO) 0.1 K/uL (0.00-0.22); BASOPHILS % (AUTO) 0.3 % (0.0-2.0); EOSINOPHILS % (AUTO) 0.1 % (0.0-4.0); HEMATOCRIT 28.9 % (36-52); HEMOGLOBIN 9.7 g/dL (12.0-18.0); LYMPHOCYTES # (AUTO) 0.6 K/uL (2.0-11.5); LYMPHOCYTES % (AUTO) 2.1 % (20.5-51.1); MEAN CORPUSCULAR HEMOGLOBIN 32 pg (27-31); MEAN CORPUSCULAR HGB CONC 34 g/dL (33-37); MEAN CORPUSCULAR VOLUME 94.4 fL (80-94); MONOCYTES # (AUTO) 1.2 K/uL (0.8-1.0); MONOCYTES % (AUTO) 4.5 % (1.7-9.3); NEUTROPHILS # (AUTO) 26.1 K/uL (1.8-7.7); PLATELET COUNT (AUTO) 894 K/uL (140-450); RED BLOOD CELL COUNT(AUTO) 3.06 MIL/uL (4.20-6.10); RED CELL DISTRIBUTION WIDTH 13.9 % (11.6-13.7)
[2022-11-03] MEDS: BLOOD GLUCOSE MONITORING 1 DEV DEV MC SCH ×4 (06:00→17:30)
[2022-11-03 06:01] LABS: ANION GAP 11.6 (8-16); CARBON DIOXIDE 25.7 mmol/L (21-32); CREATININE 0.4 mg/dL (0.6-1.3); POTASSIUM 3.3 mmol/L (3.5-5.1)
[2022-11-03 06:10] LABS: PHOSPHORUS 3.3 mg/dL (2.5-4.9)
--- NOTE | 2022-11-03 07:15 | NUR ---
RECEIVED REPORT FROM SHIP PROPELLER FINISHER NURSE JESICA COLLINS. PATIENT IS ABLE TO FOLLOW YES OR NO COMMANDS. PERRL NOTED. CRACKLES NOTED UPON LUNG AUSCULTATION. ETT TO VENT CURRENTLY ON A/C PRVC FIO2 28%, VT 560, RR 20, PEEP 5 O2 SATURATION OF 97%. SINUS RHYTHM ON MONITOR. ABDOMEN IS SOFT WITH ALL ABDOMINAL QUADRANTS ACTIVE. RECTAL TUBE IN PLACE. G-TUBE IN PLACE WITH GLUCERNA 1.2 INFUSING AT 30 ML/HR WITH FWF 50 ML Q4H TOLERATED. PATIENT HAS RIGHT IJ CURRENTLY INFUSING NORMAL SALINE TKO 5 ML/HR, PRECEDEX INFUSING AT 0.7 MCG/KG/HR, TPN INFUSING AT 70 ML/HR WITH NO INFILTRATION. YANG CATHETER TO GRAVITY CLEAR YELLOW URINE. BILATERAL SOFT WRIST RESTRAINTS IN PLACE FOR SAFETY. NO S/SX OF SKIN BREAKDOWN. BLEACH PRECAUTION, HOB 30 DEGREES FOR ASPIRATION PRECAUTION, BED WHEELS LOCKED AND IN LOWEST POSITION.
[2022-11-03] MEDS: FAMOTIDINE 20 MG/2 ML VIAL IV SCH ×2 (09:47→21:25)
[2022-11-03] MEDS: AMIODARONE 200 MG TAB PO SCH ×2 (09:48→21:21)
[2022-11-03] MEDS: FUROSEMIDE 20 MG/2 ML VIAL IVP SCH ×2 (09:48→21:20)
--- NOTE | 2022-11-03 09:49 | NUR ---
BEDSIDE. PT PLACED ON CPAP 5 PS 5 AND FIO2 30%. PHYSICIAN AWARE OF TACHYPNEA EXHIBITED BY PT. PHYSICIAN STATES TO CONTINUE CPAP TRIALS TOLERATED. VENT ALARMS ON AND FUNCTIONING. WILL CONTINUE TO MONITOR.
[2022-11-03] MEDS: VANCOMYCIN HCL 1.25 GM in NACL 0.9% 250 ML IV SCH ×2 (09:56→21:20)
[2022-11-03] MEDS: FOAM DRESSING TP SCH (09:57)
[2022-11-03] MEDS: DEXMEDETOMIDINE HCL 400 MCG in NACL 0.9% 96 ML IV PRN ×2 (10:43→17:43)
[2022-11-03] MEDS: ACETAMINOPHEN 325 MG TAB PO PRN (10:45)
[2022-11-03] MEDS: POTASSIUM CHLORIDE 20% 40 MEQ/15 ML UDC GT PRN (10:46)
[2022-11-03] MEDS: MICAFUNGIN SODIUM 100 MG in NACL 0.9% 100 ML IV SCH (10:54)
--- NOTE | 2022-11-03 11:40 | NUR ---
DR EVANS ROUNDED AT PATIENT BEDSIDE. NO NEW ORDERS RECEIVED.
[2022-11-03] MEDS ORDERED: METOCLOPRAMIDE 10 MG/2 ML INJ VIAL IVP SCH (19:00)
--- NOTE | 2022-11-03 19:45 | NUR ---
RECEIVED PT. FROM DAY SHIFT JESICA MILAN. PT. AWAKE, ALERT, FOLLOW SIMPLE COMMANDS. EYES REACTIVE TO LIGHT AND ACCOMODATION. ON ETT TO VENT WITH O2 SAT 97%. BILATERAL LUNG SOUNDS CLEAR. SINUS RHYTHM ON STIFF NECK LOADER. IV TO RIGHT JUGULAR TRIPLE LUMEN CATHETER PATENT AND INTACT, NO S/S OF INFECTION. INFUSING TPN AT 70 ML/HR AND PRECEDEX 0.7 MCG/KG/HR. GT SITE DRY AND NO S/S OF INFECTION. PER DAY SHIFT FEEDING GLUCERNA AT 40 ML/HR OFF DUE TO HIGH GASTRIC RESIDUAL. ASSESSED GT AND ASPIRATED 210 ML CREAMY THICK LIQUID. FEEDING REMAINS OFF AND WILL CONT. TO MONITOR. ABDOMEN SOFT, NON TENDER AND HYPOACTIVE SOUND. YANG CATHETER TO GRAVITY, INTACT WITH YELLOW CLEAR COLOR URINE.FLEXISEAL INTACT. SKIN WITH OPEN WOUND TO RIGHT HEEL. PLEASE SEE WOUND ASSESSMENT. REPOSITIONED AND PLACED IN COMFORTABLE POSITION. ON BILATERAL SOFT WRIST RESTRAINT. SITE NO S/S OF POOR CIRCULATION AND NO S/S OF INJURY. PLACED CALL LIGHT WITHIN REACH. MAKE ALL NEEDS KNOWN. NO S/S OF DISTRESS AND NO S/S OF PAIN.
--- NOTE | 2022-11-03 20:21 | NUR ---
MADE ROUNDS, SEEN PT. AND NO NEW ORDER MADE.
[2022-11-03] MEDS: DEXTROSE IV SCH ×4 (20:33)
[2022-11-03] MEDS: [UNRECOGNIZED DRUG - OTHER] IV SCH ×4 (20:33)
[2022-11-03] MEDS: MULTIVITAMIN IV SCH ×4 (20:33)
[2022-11-03] MEDS: AMINO ACIDS IV SCH ×4 (20:33)
--- NOTE | 2022-11-03 22:39 | NUR ---
PT. GASTRIC RESIDUAL CHECKED AND IT'S 15ML. RESUMED FEEDING GLUCERNA AT 40ML/HR.
[2022-11-04] VITALS (30 sets, daily range): BP systolic 107–169; BP diastolic 56–87
[2022-11-04] MEDS: ALBUTEROL SULFATE/IPRATROPIU 3 ML SOL IH SCH ×4 (00:13→19:23)
[2022-11-04] MEDS: BLOOD GLUCOSE MONITORING 1 DEV DEV MC SCH ×4 (00:24→17:25)
[2022-11-04] MEDS: VANCOMYCIN RC SCH ×5 (00:33→17:26)
[2022-11-04] MEDS: NACL 0.9% RC SCH ×5 (00:33→17:26)
[2022-11-04] MEDS: Z-GUARD PASTE TP SCH ×2 (00:36→13:23)
[2022-11-04] MEDS: DEXMEDETOMIDINE HCL 400 MCG in NACL 0.9% 96 ML IV PRN ×4 (00:45→23:42)
[2022-11-04] MEDS: MEROPENEM 1,000 MG in NACL 0.9% 50 ML IV SCH ×3 (05:16→21:27)
[2022-11-04 05:26] LABS: BASOPHILS # (AUTO) 0.1 K/uL (0.00-0.22); BASOPHILS % (AUTO) 0.4 % (0.0-2.0); EOSINOPHILS # (AUTO) 0.1 K/uL (0-0.4); EOSINOPHILS % (AUTO) 0.2 % (0.0-4.0); HEMATOCRIT 29.6 % (36-52); HEMOGLOBIN 9.8 g/dL (12.0-18.0); LYMPHOCYTES # (AUTO) 0.7 K/uL (2.0-11.5); LYMPHOCYTES % (AUTO) 2.9 % (20.5-51.1); MEAN CORPUSCULAR HEMOGLOBIN 31 pg (27-31); MEAN CORPUSCULAR HGB CONC 33 g/dL (33-37); MEAN CORPUSCULAR VOLUME 93.9 fL (80-94); MONOCYTES # (AUTO) 1.4 K/uL (0.8-1.0); MONOCYTES % (AUTO) 5.9 % (1.7-9.3); NEUTROPHILS # (AUTO) 20.8 K/uL (1.8-7.7); NEUTROPHILS % (AUTO) 90.6 % (42.2-75.2); RED BLOOD CELL COUNT(AUTO) 3.15 MIL/uL (4.20-6.10); RED CELL DISTRIBUTION WIDTH 14.8 % (11.6-13.7)
[2022-11-04 05:49] LABS: ANION GAP 11.3 (8-16); CARBON DIOXIDE 28.7 mmol/L (21-32); CREATININE 0.6 mg/dL (0.6-1.3)
[2022-11-04 06:15] LABS: PLATELET COUNT (AUTO) 1062 K/uL (140-450)
--- NOTE | 2022-11-04 06:30 | NUR ---
LAB CALLED FOR WBC 23 AND PLATELET [id number]. I CALLED THE EXCHANGE AND DR. EVANS ANSWERED THE PHONE. I REPORTED THE WBC AND PLATELET RESULT AND HE STATED " THAT'S FINE, DON'T WORRY ABOUT IT". WILL ENDORSE TO THE NEXT SHIFT.
--- NOTE | 2022-11-04 07:15 | NUR ---
RECEIVED REPORT FROM GUT DROPPER NURSE SHARMAINE Gomez RN. PATIENT IS ABLE TO FOLLOW YES OR NO COMMANDS. PERRL NOTED. CRACKLES NOTED UPON LUNG AUSCULTATION. ETT TO VENT CURRENTLY ON A/C PRVC FIO2 28%, VT 560, RR 20, PEEP 5 O2 SATURATION OF 97%. SINUS RHYTHM ON MONITOR. ABDOMEN IS SOFT WITH ALL ABDOMINAL QUADRANTS ACTIVE. RECTAL TUBE IN PLACE. G-TUBE IN PLACE WITH GLUCERNA 1.2 INFUSING AT 40 ML/HR WITH FWF 50 ML Q4H TOLERATED. PATIENT HAS RIGHT IJ CURRENTLY INFUSING NORMAL SALINE TKO 5 ML/HR, PRECEDEX INFUSING AT 0.7 MCG/KG/HR, TPN INFUSING AT 30 ML/HR WITH NO INFILTRATION. YANG CATHETER TO GRAVITY CLEAR YELLOW URINE. BILATERAL SOFT WRIST RESTRAINTS IN PLACE FOR SAFETY. NO S/SX OF SKIN BREAKDOWN. BLEACH PRECAUTION, HOB 30 DEGREES FOR ASPIRATION PRECAUTION, BED WHEELS LOCKED AND IN LOWEST POSITION.
[2022-11-04 07:50] LABS: MAGNESIUM 2.1 mg/dL (1.8-2.4); PHOSPHORUS 4.1 mg/dL (2.5-4.9)
[2022-11-04] MEDS: AMIODARONE 200 MG TAB PO SCH ×2 (08:09→21:34)
[2022-11-04] MEDS: VANCOMYCIN HCL 1.25 GM in NACL 0.9% 250 ML IV SCH ×2 (08:14→21:28)
[2022-11-04] MEDS: FUROSEMIDE 20 MG/2 ML VIAL IVP SCH ×2 (08:45→21:58)
[2022-11-04] MEDS: FAMOTIDINE 20 MG/2 ML VIAL IV SCH ×2 (08:45→21:32)
[2022-11-04] MEDS: ACETAMINOPHEN 325 MG TAB PO PRN (08:46)
--- NOTE | 2022-11-04 10:43 | NUR ---
RETURNED PATIENT TO PREVIOUS VENTILATOR SETTINGS AFTER 3 HOURS OF SPONTANEOUS BREATHING TRIAL. PATIENT SHOWS NO SIGNS OF RESPIRATORY DISTRESS AT THIS TIME. PATIENT AWAKE AND ALERT. PATIENT WAS ABLE TO FOLLOW COMMANDS GIVEN AT THIS TIME. PATIENT AIRWAY IS PATENT AT SECURE BY TUBE STEPHENS AND BITE BLOCK. VENTILATOR ALARMS WERE SET AND AUDIBLE TO ENVIRONMENT. RN NOTIFIED. VENTILATOR PLUGGED INTO RED OUTLET WITH WHEELS LOCKED. AMBU BAG AT HEAD OF THE BED. WILL CONTINUE TO MONITOR PATIENT.
[2022-11-04] MEDS: MICAFUNGIN SODIUM 100 MG in NACL 0.9% 100 ML IV SCH (11:10)
--- NOTE | 2022-11-04 13:17 | NUR ---
11/04/22 RD FOLLOW UP COMPLETED PLEASE REFER TO NUTRITION ASSESSMENT UNDER CARE ACTIVITY FOR ESTIMATED NUTRITIONAL NEEDS. 1. WHEN/IF MEDICALLY APPROPRIATE, RESUME GLUCERNA 1.2 AT GOAL RATE 55 ML/HR WITH RANDI BID FOR WOUND SUPPORT, FWF 100 ML Q4H TOLERATED. START TF AT 1O ML/HR INCREASE BY 1O ML Q4H UNTIL GOAL IS REACHED TOLERATED AND WITH RANDI BID (PROVIDES 160 KCAL AND 5 GM PROTEIN DAILY) WILL PROVIDES 1320 ML TOTAL VOLUME, 1744 KCAL, 84 GM PROTEIN AND 1662 ML FREE WATER DAILY MEETING 78% ESTIMATED KCAL NEEDS AND 95% ESTIMATED PROTEIN NEEDS. 2. RD TO FOLLOW-UP 2-3 DAYS, HIGH RISK LEO MARTE RD
--- NOTE | 2022-11-04 19:14 | NUR ---
ENDORSED REPORT TO SOCIAL WORK INSTRUCTOR REGISTRY NURSE JESICA NAIR. FOR CONTINUITY OF CARE.
[2022-11-04] MEDS: [UNRECOGNIZED DRUG - OTHER] IV SCH ×4 (20:00)
[2022-11-04] MEDS: MULTIVITAMIN IV SCH ×4 (20:00)
[2022-11-04] MEDS: AMINO ACIDS IV SCH ×4 (20:00)
[2022-11-04] MEDS: DEXTROSE IV SCH ×4 (20:00)
[2022-11-04] MEDS ORDERED: DEXMEDETOMIDINE HCL 100 MCG/ML 2 ML VIAL IV ONE (22:36)
[2022-11-05] VITALS (30 sets, daily range): BP systolic 107–179; BP diastolic 57–92
[2022-11-05] MEDS: Z-GUARD PASTE TP SCH ×2 (01:00→12:38)
[2022-11-05] MEDS: ALBUTEROL SULFATE/IPRATROPIU 3 ML SOL IH SCH ×4 (01:01→19:36)
[2022-11-05] MEDS: MEROPENEM 1,000 MG in NACL 0.9% 50 ML IV SCH ×3 (05:34→21:00)
[2022-11-05 05:40] LABS: BASOPHILS # (AUTO) 0.1 K/uL (0.00-0.22); BASOPHILS % (AUTO) 0.5 % (0.0-2.0); EOSINOPHILS # (AUTO) 0.2 K/uL (0-0.4); EOSINOPHILS % (AUTO) 0.8 % (0.0-4.0); HEMATOCRIT 26.5 % (36-52); HEMOGLOBIN 8.6 g/dL (12.0-18.0); LYMPHOCYTES # (AUTO) 0.9 K/uL (2.0-11.5); LYMPHOCYTES % (AUTO) 4.2 % (20.5-51.1); MEAN CORPUSCULAR HEMOGLOBIN 31 pg (27-31); MEAN CORPUSCULAR HGB CONC 32 g/dL (33-37); MONOCYTES # (AUTO) 1.2 K/uL (0.8-1.0); MONOCYTES % (AUTO) 5.8 % (1.7-9.3); NEUTROPHILS # (AUTO) 18.1 K/uL (1.8-7.7); NEUTROPHILS % (AUTO) 88.7 % (42.2-75.2); RED BLOOD CELL COUNT(AUTO) 2.79 MIL/uL (4.20-6.10); RED CELL DISTRIBUTION WIDTH 14.3 % (11.6-13.7); WHITE BLOOD COUNT (AUTO) 20.4 K/uL (4.8-10.8)
[2022-11-05] MEDS ORDERED: DEXMEDETOMIDINE HCL 100 MCG/ML 2 ML VIAL IV ONE (06:07)
[2022-11-05 06:09] LABS: ANION GAP 10.8 (8-16); CARBON DIOXIDE 28.6 mmol/L (21-32); CREATININE 0.5 mg/dL (0.6-1.3); MAGNESIUM 1.9 mg/dL (1.8-2.4); PHOSPHORUS 3.9 mg/dL (2.5-4.9); POTASSIUM 3.4 mmol/L (3.5-5.1)
[2022-11-05] MEDS: BLOOD GLUCOSE MONITORING 1 DEV DEV MC SCH ×4 (06:22→18:53)
[2022-11-05] MEDS: DEXMEDETOMIDINE HCL 400 MCG in NACL 0.9% 96 ML IV PRN (06:23)
[2022-11-05 07:00] LABS: PLATELET COUNT (AUTO) 1156 K/uL (140-450)
--- NOTE | 2022-11-05 07:15 | NUR ---
RECEIVED REPORT FROM CERTIFIED FIRST ASSISTANT CHEMICAL HANDLER, JOANIE, FOR CONTINUITY OF CARE. PERRLA, ABLE TO FOLLOW COMMANDS. ETT TO VENT CURRENTLY ON A/C PRVC FIO2 28%, VT 500, RR 20, PEEP 5. SINUS TACHYCARDIA ON MONITOR. RIGHT IJ TLC CURRENTLY INFUSING NS TKO 5 ML/HR, PRECEDEX AT 0.7 MCG/KG/HR, AND TPN AT 35.20 ML/HR. RECTAL TUBE IN PLACE. G-TUBE IN PLACE WITH GLUCERNA 1.2 INFUSING AT 50 ML/HR WITH FWF 50 ML Q4H TOLERATED. YANG CATHETER TO GRAVITY DRAINING CLEAR YELLOW URINE. BILATERAL SOFT WRIST RESTRAINTS IN PLACE FOR SAFETY. NO S/SX OF SKIN BREAKDOWN. BLEACH PRECAUTION, HOB 30 DEGREES FOR ASPIRATION PRECAUTION, BED WHEELS LOCKED AND IN LOWEST POSITION.
[2022-11-05] MEDS: VANCOMYCIN 1,000 MG in DEXTROSE 5% 250 ML IV SCH ×2 (08:19→21:00)
[2022-11-05] MEDS: ACETAMINOPHEN 325 MG TAB PO PRN (08:19)
[2022-11-05] MEDS: ALGINATE DRESSING MC SCH (08:20)
[2022-11-05] MEDS: FUROSEMIDE 20 MG/2 ML VIAL IVP SCH ×2 (08:20→21:00)
[2022-11-05] MEDS: FAMOTIDINE 20 MG/2 ML VIAL IV SCH ×2 (08:20→21:00)
[2022-11-05] MEDS: AMIODARONE 200 MG TAB PO SCH ×2 (08:20→21:00)
--- NOTE | 2022-11-05 10:35 | NUR ---
0730 PT FOUND AWAKE AND ALERT. PATIENT WAS ABLE TO FOLLOW COMMANDS GIVEN. PLACED PATIENT ON SPONTANEOUS BREATHING TRIAL WITH PRESSURE SUPPORT OF 5 AND PEEP OF 5. PATIENT WAS ABLE TO TOLERATED Addendum: 11/05/22 at 1725 by RAHUL MCMANUS RT 0730 PT FOUND AWAKE AND ALERT. PATIENT WAS ABLE TO FOLLOW COMMANDS GIVEN. PLACED PATIENT ON SPONTANEOUS BREATHING TRIAL WITH PRESSURE SUPPORT OF 5 AND PEEP OF 5. PATIENT WAS ABLE TO TOLERATED TRIAL FOR 3 HOURS. RN AND MD KILGORE NOTIFIED. AT THIS TIME PATIENT IS RETURNED TO PREVIOUS SETTINGS AND DAILY SBT WILL CONTINUE TOMORROW PER MD. PATIENT AIRWAY IS PATENT AND SECURED BY ETT STEPHENS AND BITE BLOCK. AMBU BAG AT BEDSIDE WITH VENT ALARMS ON AND AUDIBLE TO ENVIRONMENT. VENT WHEELS ARE LOCKED. PATIENT SHOWS NO SIGNS OF RESPIRATORY DISTRESS AT THIS TIME. ADEQUATE CHEST RISE AND FALL NOTED. BILATERAL BREATH SOUNDS HEARD ON AUSCULTATION. WILL CONTINUE TO MONITOR PATIENT.
[2022-11-05] MEDS: MICAFUNGIN SODIUM 100 MG in NACL 0.9% 100 ML IV SCH (11:33)
[2022-11-05] MEDS: POTASSIUM CHLORIDE 20% 40 MEQ/15 ML UDC GT PRN (11:34)
[2022-11-05] MEDS: METOCLOPRAMIDE 10 MG/2 ML INJ VIAL IVP SCH ×2 (12:39→16:41)
[2022-11-05] MEDS: SCOPOLAMINE 1.5 MG/72 HR PATCH TD SCH (13:38)
--- NOTE | 2022-11-05 16:22 | NUR ---
AT BEDSIDE. UPDATED ON PLAN OF CARE, NO FURTHER QUESTIONS AT THIS TIME.
--- NOTE | 2022-11-05 19:10 | NUR ---
ENDORSED BEDSIDE REPORT TO FELIPA, [employer] KNIFE SETTER GRINDER MACHINE, FOR CONTINUITY OF CARE.
--- NOTE | 2022-11-05 19:22 | NUR ---
RECEIVED REPORT FROM DAY SHIFT NURSEERIN RN. ALL CARES ASSUMED. RECEIVED PT ON SEMI-FOWLERS POSITION IN BED, AWAKE, WITH SPONTANEOUS EYE OPENING AND ABLE TO RESPOND AND FOLLOW COMMANDS. ON CONTACT PRECAUTIONS. WITH ETT TO VENT, SPO2 OF 100% NOTED AND NOT IN DISTRESS. WITH RIGHT IJ LINE TO TLC WITH FLOWING NS AT TKO, PRECEDEX AT 0.7 MCG/KG/HR - FLOWING WELL WITH DRESSING INTACT. WITH G-TUBE WITH GLUCERNA FEEDING AT 55 ML/HR WITH 50ML FWF Q4H - TOLERATED. WITH YANG CATHETER DRAINING BY GRAVITY. WITH FLEXISEAL INTACT DRAINING TO BAG. BILATERAL SOFT WRIST RESTRAINTS NOTED. WITH RIGHT HEAL WOUND DRESSING. HEEL PROTECTORS IN PLACE. SAFETY PRECAUTIONS OBSERVED AND MAINTAINED.
[2022-11-05] MEDS: DEXTROSE IV SCH ×4 (20:00)
[2022-11-05] MEDS: AMINO ACIDS IV SCH ×4 (20:00)
[2022-11-05] MEDS: [UNRECOGNIZED DRUG - OTHER] IV SCH ×4 (20:00)
[2022-11-05] MEDS: MULTIVITAMIN IV SCH ×4 (20:00)
--- NOTE | 2022-11-05 23:30 | NUR ---
INCREASED BP AND HEART RATE NOTED, SPO2 83%. (SEE FLOWSHEET) SUCTIONED SECRETIONS, REPOSITIONED PT, CHECKED PULSE OXIMETRY - STILL AT 80'S SPO2. FIO2 INCREASED TO 100% FOR 2 MINUTES,SPO2 AT 93% BUT WENT DOWN AGAIN TO 80S AFTER 2 MINUTES. RT CALLED FOR ASSESSMENT AND EVAL. PRN MEDICATIONS GIVEN FOR PAIN AND AGITATION. KEPT MONITORED.
[2022-11-05] MEDS: MORPHINE SULFATE 2 MG/ML SYR IVP PRN (23:39)
[2022-11-06] VITALS (31 sets, daily range): BP systolic 65–144; BP diastolic 31–86
[2022-11-06] MEDS: LORazepam 2 MG/ML VIAL IVP PRN (00:02)
[2022-11-06] MEDS: DEXMEDETOMIDINE HCL 400 MCG in NACL 0.9% 96 ML IV PRN ×2 (00:13→09:29)
[2022-11-06] MEDS: BLOOD GLUCOSE MONITORING 1 DEV DEV MC SCH ×4 (00:17→18:01)
[2022-11-06] MEDS: ALBUTEROL SULFATE/IPRATROPIU 3 ML SOL IH SCH ×4 (01:18→19:32)
[2022-11-06] MEDS: ACETAMINOPHEN 325 MG TAB PO PRN ×2 (04:00→19:47)
[2022-11-06] MEDS: Z-GUARD PASTE TP SCH ×3 (04:00→13:22)
--- NOTE | 2022-11-06 04:00 | NUR ---
102.4 TEMP NOTED. COOL BATH GIVEN. COOL COMPRESS APPLIED ON BOTH AXILLARY AREAS. TYLENOL GIVEN.
[2022-11-06 05:14] LABS: BASOPHILS # (AUTO) 0.1 K/uL (0.00-0.22); BASOPHILS % (AUTO) 0.4 % (0.0-2.0); EOSINOPHILS % (AUTO) 0.1 % (0.0-4.0); HEMATOCRIT 28.4 % (36-52); HEMOGLOBIN 9.3 g/dL (12.0-18.0); LYMPHOCYTES # (AUTO) 0.7 K/uL (2.0-11.5); LYMPHOCYTES % (AUTO) 2.6 % (20.5-51.1); MEAN CORPUSCULAR HEMOGLOBIN 31 pg (27-31); MEAN CORPUSCULAR HGB CONC 33 g/dL (33-37); MEAN CORPUSCULAR VOLUME 94.2 fL (80-94); MONOCYTES # (AUTO) 1.4 K/uL (0.8-1.0); MONOCYTES % (AUTO) 4.8 % (1.7-9.3); NEUTROPHILS # (AUTO) 26.8 K/uL (1.8-7.7); NEUTROPHILS % (AUTO) 92.1 % (42.2-75.2); RED BLOOD CELL COUNT(AUTO) 3.01 MIL/uL (4.20-6.10); RED CELL DISTRIBUTION WIDTH 14.2 % (11.6-13.7)
[2022-11-06] MEDS: MEROPENEM 1,000 MG in NACL 0.9% 50 ML IV SCH ×3 (05:15→20:05)
[2022-11-06 05:20] LABS: PLATELET COUNT (AUTO) 1212 K/uL (140-450); WHITE BLOOD COUNT (AUTO) 29.1 K/uL (4.8-10.8)
[2022-11-06 05:35] LABS: ANION GAP 10.5 (8-16); CARBON DIOXIDE 29.5 mmol/L (21-32); CREATININE 0.6 mg/dL (0.6-1.3)
--- NOTE | 2022-11-06 05:38 | NUR ---
PATIENT HAD PERIODS OF DESATURATION DURING THE NIGHT. WHEN AT FIO2 OF 24% PATIENT WOULD DESAT TO LOW 80S. REPLACED PATIENTS PULSE OX PROBE AND PATIENT CONTINUED TO SAT AT THAT %. SUCTIONED PATIENT AND ACQUIRED COPIOUS AMOUNTS OF THICK YELLOW SECRETIONS. PATIENT DID NOT RETURN TO SATURATIONS >90%. TITRATED FIO2 TO 28% AND PATIENT WAS ABLE TO MAINTAIN SATS ABOVE 90%.
[2022-11-06 05:58] LABS: MAGNESIUM 1.7 mg/dL (1.8-2.4)
[2022-11-06] MEDS ORDERED: NOREPINEPHRINE 4 MG/4 ML VIAL IV ONE (07:13)
--- NOTE | 2022-11-06 07:30 | NUR ---
REPORT GIVEN TO [facility] NURSE, JESICA JIMENEZ.
[2022-11-06] MEDS: NOREPINEPHRINE 8 MG in DEXTROSE 5% 250 ML IV PRN ×2 (07:45→19:53)
[2022-11-06] MEDS: METOCLOPRAMIDE 10 MG/2 ML INJ VIAL IVP SCH ×3 (09:07→17:56)
[2022-11-06] MEDS: AMIODARONE 200 MG TAB PO SCH ×2 (09:07→20:13)
[2022-11-06] MEDS: FAMOTIDINE 20 MG/2 ML VIAL IV SCH ×2 (09:07→20:12)
[2022-11-06] MEDS: FUROSEMIDE 20 MG/2 ML VIAL IVP SCH ×2 (09:08→20:13)
[2022-11-06] MEDS: FOAM DRESSING TP SCH (09:09)
[2022-11-06] MEDS: MICAFUNGIN SODIUM 100 MG in NACL 0.9% 100 ML IV SCH (11:25)
--- NOTE | 2022-11-06 11:26 | NUR ---
REPORT RECEIVED FROM FLYNN MOONEY. PT WAS HYPOTENSIVE AT 68/37. i MIXED LEVOPHED 8MG/250ML AND STARTED IT AT 12MCG. MD WAS NOTIFIED OF HYPOTENSIVE EPISODE. AFEBRILE AT THE MOMENT
--- NOTE | 2022-11-06 12:38 | NUR ---
BEDSIDE AND PT PLACED ON SBT CPAP 5 PS 5 FIO2 28%. EXPLAINED TO PHYSICIAN LARGE AMOUNTS OF THICK YELLOW SECRETIONS WHEN SUCTIONING PT . VENT ALARMS ON AND FUNCTIONING. WILL CONTINUE TO MONITOR.
--- NOTE | 2022-11-06 14:54 | NUR ---
11/06/22 RD FOLLOW UP COMPLETED PLEASE REFER TO NUTRITION ASSESSMENT UNDER CARE ACTIVITY FOR ESTIMATED NUTRITIONAL NEEDS. 1. RD RECOMMENDS TO CONTINUE ON TUBE FEEDING OF GLUCERNA 1.2 @ 55ML/HR FWF 50 Q4H DIET TOLERATED. THIS WILL PROVIDE 1584 CALORIES AND 78 GRAMS OF PROTEIN. 2. RD RECOMMENDS RANDI BID FOR WOUNDS WHICH WILL PROVIDE 16OKCALS AND 5 GRAMS OF PROTEIN. 3. MONITOR GI, PO INTAKE, AND NUTRITION RELATED LAB VALUES. 4. RD TO FOLLOW-UP 2-3 DAYS, HIGH RISK LEO MARTE RD
--- NOTE | 2022-11-06 16:10 | NUR ---
PT COMPLETED 4 HOURS OF SBT. RR RANGING FROM 25-28 AND VT RANGING FROM 490-520, NIF [id number]. PT ABLE TO OPEN EYES AND FOLLOW COMMANDS. VITALS REMAINED NORMAL. PT CONTINUES TO HAVE LARGE AMOUNT OF THICK YELLOW SECRETIONS.
--- NOTE | 2022-11-06 17:36 | NUR ---
NOTIFIED DR EVANS AND DR KILGORE REGARDING PT SPOKE ON THE PHONE WITH NURSE, WANTED TO CHANGE PT TO DNR AND DNI. FAMILY WILL COME TO HOSPITAL TOMORROW 11/07/2022 MORNING FOR FURTHER DECISION. DR EVANS WILL CONTACT TO CONFIRM THE CODE STATUS AND THEN GO AHEAD TO CHANGE CODE STATUS.
--- NOTE | 2022-11-06 18:34 | NUR ---
PT REMAINED HEMODYNAMICALLY STABLE THROUGHOUT SHIFT AND I WAS ABLE TO TITRATE DOWN ON THE LEVOPHED TO 6MCG. PT WAS AFEBRILE AND FIO2 ON VENT REMAINS THE SAME AT 28. SPOKE TO AND SHE VERBALLY EXPRESSED OVER THE PHONE "I WANT TO PUT HIM BACK ON THE DNR AND NOT DO THE TRACHEOSTOMY" TEXTED DR KILGORE AND DR EVANS AND THEY SAID THAT THEY WILL TALK TO THEMSELVES BEFORE MAKING IT OFFICIAL.
--- NOTE | 2022-11-06 19:30 | NUR ---
RECEIBED REPORT [facility] RN. ALL CARES ASSUMED. RECEIVED PT ON BED ON SEMI-COBB'S POSITION WITH SIDE RAILS RAISED. PT IS AWAKE AND ABLE TO RESPOND BY TRACKING AND NODDING WHEN ASKED. SNUS TACHYCARDIA NOTED ON BEDSIDE MONITOR. PT IS INTUBATED WITH ETT TO VENT AT ACPRVC SETTINGS. SATTING WELL AND NOT IN DISTRESS. WITH RIGHT IJ TLC -DRESSING INTACT- WITH PRECEDEX AT 0.6 MCG/KG/HR, LEVOPHED AT 0.6 AND NS AT TKO. WITH BILATERAL SOFT WRIST RESTRAINTS. WITH G-TUBE INTACT ATTACHED TO FEEDING OF GLUCERNA AT 55 ML/HR - TOLERATED. YANG CATHETER AND FLEXISEAL DRAINING BY GRAVITY. RIGHT HEEL WOUND DRESSING NOTED WITH SCD APPLIED. SAFETY AND FALL PRECAUTIONS MAINTAINED. WILL CLOSELY MONITOR PT.
[2022-11-06 19:45] LABS: BILIRUBIN,URINE NEGATIVE (NEGATIVE); BLOOD, URINE TRACE-I (NEGATIVE); COLOR,URINE YELLOW (YELLOW); LEUKOCYTE ESTERASE ,URINE NEGATIVE (NEGATIVE); NITRITE, URINE NEGATIVE (NEGATIVE); UGLUCOSE NEGATIVE (NEGATIVE)
--- NOTE | 2022-11-06 19:47 | NUR ---
100.8 F TEMP NOTED. SKIN WARM AND SLIGHTLY MOIST. COOL COMPRESSES APPLIED ON BOTH UNDERARMS AND GROIN AREAS. TYLENOL GIVEN VIA G-TUBE PRN DOSE. KEPT COOL AND COMFORTABLE.
[2022-11-06] MEDS: VANCOMYCIN 1,000 MG in DEXTROSE 5% 250 ML IV SCH (20:21)
[2022-11-06 21:46] LABS: APPEARANCE,URINE HAZY (CLEAR)
[2022-11-06 21:47] LABS: RBC,URINE 0-5 /HPF (0-5)
--- NOTE | 2022-11-06 22:11 | NUR ---
RECEIVED PHONE CALL FROM DR. YEE. PROVIDED UPDATE ON PATIENT'S CURRENT STATUS (MEDICAL HISTORY, LABS). POSSIBLE TRACHEOSTOMY SCHEDULED FOR 11/07/2022. STAT ECHO ORDERED PER REQUEST
[2022-11-07] VITALS (32 sets, daily range): BP systolic 105–148; BP diastolic 52–85
--- NOTE | 2022-11-07 | NUR ---
FEEDING STOPPED. NPO POST MIDNIGHT OBSERVED FOR POSSIBLE TRACHEOSTOMY IN THE MORNING IF CONSENT IS OBTAINED FROM .
[2022-11-07] MEDS: BLOOD GLUCOSE MONITORING 1 DEV DEV MC SCH ×5 (00:09→23:20)
[2022-11-07] MEDS: ALBUTEROL SULFATE/IPRATROPIU 3 ML SOL IH SCH ×4 (01:12→19:02)
[2022-11-07] MEDS: Z-GUARD PASTE TP SCH ×2 (03:00→12:28)
[2022-11-07] MEDS: MEROPENEM 1,000 MG in NACL 0.9% 50 ML IV SCH ×3 (05:18→20:09)
--- NOTE | 2022-11-07 07:15 | NUR ---
Opening Received report on pt. Pt intubated, on precedex drip, awake, in no signs of pain or distress. Pt currently having echocardiogram done at bedside. On levohped drip. Per report, pt is NPO for potential procedure today if pt's consents to procedure. Wilkins in place draining urine to gravity. Flexiseal with loose/liquid BM. Bilateral soft wrist restraints in place for safety, no breakdown noted, pulses present.
--- NOTE | 2022-11-07 07:20 | NUR ---
REPORT GIVEN TO DAY SHIFT NURSEBEN RN FOR CONTINUITY OF CARE.. ALL QUESTIONS ANSWERED.
--- NOTE | 2022-11-07 07:28 | NUR ---
RECEIVED ON A CarmageddonAPE R860 VENTILATOR PLUGGED INTO RED OUTLET TOLERATING WELL WITHOUT ADVERSE REACTIONS NOTED TO AN ENDOTRACHEAL TUBE #8.0 SECURED AT 25cm TEETH/GUM LINE WITH AN ANCHOR FAST CUFF PRESSURE CHECKED NOTED AMBU BAG AT BEDSIDE LOC AWAKE "WATCHING TV" SEDATED PRECEDEX 100 AT 0.2mcg GOOD CHEST RISE ENDOTRACHEAL SUCTION FOR COPIOUS THIN YELLOW/KRISHNAN SECRETIONS OROPHARYNGEAL SUCTION FOR LARGE THIN YELLOW SECRETIONS AIRWAY PATENT REVIEWED PREVIOUS EXPIRATORY Vt AND PEAK PRESSURES CHANGED MODE TO AC BEN/FLUOROSCOPE OPERATOR NOTIFIED
[2022-11-07] MEDS: AMIODARONE 200 MG TAB PO SCH ×2 (08:05→20:10)
[2022-11-07] MEDS: FAMOTIDINE 20 MG/2 ML VIAL IV SCH ×2 (08:05→20:09)
[2022-11-07] MEDS: FUROSEMIDE 20 MG/2 ML VIAL IVP SCH ×2 (08:06→20:10)
[2022-11-07] MEDS: METOCLOPRAMIDE 10 MG/2 ML INJ VIAL IVP SCH ×3 (08:11→17:24)
[2022-11-07] MEDS: VANCOMYCIN 1,000 MG in DEXTROSE 5% 250 ML IV SCH ×2 (08:12→20:10)
[2022-11-07] MEDS ORDERED: BUPIVACAINE-MPF/EPI 0.25% 30 ML VIAL INJ ONE (08:23)
[2022-11-07] MEDS ORDERED: LIDOCAINE 1% 500 MG/50 ML VIAL ONE (08:23)
--- NOTE | 2022-11-07 09:30 | NUR ---
Dr. Sanders rounding on pt and informed that surgery was scheduled for this morning. Dr. Sanders states he spoke with pt's regarding code status yesterday and she requested DNR. Dr. Sanders also states art history professor will be at facility around noon to speak with pt's regarding tracheostomy and plan of care.
[2022-11-07] MEDS ORDERED: ONDANSETRON 4 MG/2 ML VIAL ONE (10:00)
[2022-11-07] MEDS ORDERED: ROCURONIUM 50 MG/5 ML VIAL IV ONE ×2 (10:00→10:42)
[2022-11-07] MEDS ORDERED: NOREPINEPHRINE 4 MG/4 ML VIAL IV ONE (10:00)
[2022-11-07] MEDS ORDERED: fentaNYL citrate 0.05 MG/ML - 50mL vial IV ONE (10:00)
[2022-11-07] MEDS ORDERED: SEVOFLURANE 250 ML BTL INH ONE (10:00)
--- NOTE | 2022-11-07 10:00 | NUR ---
Pt's , Edison Gonzalez, states that she, pt, and family members now consent to tracheostomy procedure. Consent signed and witnessed by RN.
--- NOTE | 2022-11-07 10:10 | NUR ---
STABLE GOOD CHEST RISE ENDOTRACHEAL SUCTION FOR COPIOUS THIN YELLOW/KRISHNAN SECRETIONS AIRWAY PATENT
--- NOTE | 2022-11-07 10:12 | NUR ---
OPERATING ROOM (OR) STAFF STAFF AT BEDSIDE PREPPING PATIENT FOR TRANSFER TO OR
--- NOTE | 2022-11-07 10:27 | NUR ---
TRANSFERRED PATIENT TO OR FOR TRACHEOSTOMY PROCEDURE; REMOVED PATIENT FOR VENTILATOR PLACED ON SUPPLEMENTAL OXYGEN AT 15 LPM VIA AMBU BAG TO HME/INLINE SUCTION CATHETER/ENDOTRACHEAL TUBE; BAG DEPRESSION EVERY 6 SECONDS; TOLERATED TRANSFER WELL WITHOUT COMPLICATIONS NOTED SATURATION 98% HR 101; MARLON/ANDREW MONTANEZ RESUMED AMBU BAG AT DOOR
[2022-11-07] MEDS ORDERED: fentaNYL citrate 0.05 MG/ML VIAL ONE (10:28)
--- NOTE | 2022-11-07 10:31 | NUR ---
Pt off unit to OR accompanied by RN, RT, anesthesiologist.
--- NOTE | 2022-11-07 11:04 | NUR ---
THOMAS/ANDREW MONTANEZ; PER Brittany YEE/ANESTHESIOLOGIST; REQUESTING OMINI FLEX ADAPTER; DELIVERED TO MARLON/OR LIS[facility]
--- NOTE | 2022-11-07 11:20 | NUR ---
TRANSFERRED PATIENT FROM OPERATING ROOM TO ER-1; ON SUPPLEMENTAL OXYGEN AT [address] YEE/ANESTHESIOLOGIST; AMBU BAG DEPRESSION EVERY 6 SECONDS; SATURATION 97% HR 105
--- NOTE | 2022-11-07 11:22 | NUR ---
PLACED PATIENT BACK ON A Acompli R860 VENTILATOR WITH SAME SETTINGS NOTED; PORTEX DCT TRACHEOSTOMY SUTURED AT RIGHT/LEFT SIDE OF PLATE; ALSO SECURED WITH A PORTEX TRACH TIE; CUFF PRESSURE MOV Addendum: 11/07/22 at 1238 by Willam Carmona RT GOOD CHEST RISE AIRWAY PATENT Addendum: 11/07/22 at 1441 by Willam Carmona RT PORTEX DCT = PORTEX DFZOE; PORTEX TRACH TIE = GILMA TRACH EDELMIRA
[2022-11-07] MEDS ORDERED: HYDROmorphone 1 MG/ML AMP IVP PRN ×2 (11:25→11:35)
[2022-11-07] MEDS ORDERED: LACTATED RINGERS 1,000 ML IV SCH (11:25)
[2022-11-07] MEDS ORDERED: LABETALOL 20 MG/4 ML VIAL IVP PRN (11:27)
[2022-11-07] MEDS ORDERED: hydrALAZINE 20 MG/ML VIAL IVP PRN (11:27)
--- NOTE | 2022-11-07 11:34 | NUR ---
Pt return from OR with tracheostomy, no bleeding noted from site. Remains on levophed and precedex drips. Dr. Keating also present, states to hold tube feeding and heparin today, but may resume tomorrow.
[2022-11-07] MEDS ORDERED: MORPHINE SULFATE 4 MG/ML SYR IV PRN (11:35)
--- NOTE | 2022-11-07 11:35 | NUR ---
Central line dressing change done with aseptic technique. Pt tolerated well.
[2022-11-07] MEDS ORDERED: BLOOD GLUCOSE MONITORING 1 DEV DEV FS SCH (11:39)
--- NOTE | 2022-11-07 11:40 | NUR ---
Dr. Sun and pt's Edison discussing plan of care. Edison states she was informed that pt will eventually be transferred to [facility].
[2022-11-07] MEDS: MICAFUNGIN SODIUM 100 MG in NACL 0.9% 100 ML IV SCH (11:48)
--- NOTE | 2022-11-07 13:15 | NUR ---
TRANSFERRED PATIENT TO RADIOLOGY FOR CT SCAN OF CHEST/ABDOMEN/PELVIS; REMOVED PATIENT FROM VENTILATOR PLACED ON SUPPLEMENTAL OXYGEN AT 15 LPM VIA E-TANK TO HME/INLINE SUCTION CATHETER/TRACHEOSTOMY TUBE; BAG DEPRESSION EVERY 6 SECONDS DURING TRANSFER AND PROCEDURE; TOLERATED WELL WITHOUT ADVERSE REACTIONS NOTED SATURATION 99% HR 104
--- NOTE | 2022-11-07 13:15 | NUR ---
Pt off unit to CT via bed with continuous O2 and monitoring, accompanied by RN, RT and radiologic technologist.
--- NOTE | 2022-11-07 13:22 | NUR ---
PATIENT TRANSFERRED BACK TO ICU-1; PLACED ON SUPPLEMENTAL OXYGEN AT 15 LPM VIA E-TANK TO HME/INLINE SUCTION CATHETER/TRACHEOSTOMY TUBE; AMBU BAG DEPRESSION EVERY 6 SECONDS; TOLERATED TRANSFER WELL WITHOUT COMPLICATIONS NOTED; SATURATION 100% HR 102
--- NOTE | 2022-11-07 13:24 | NUR ---
Pt return to unit from CT, situated pt. Pt tolerated well.
--- NOTE | 2022-11-07 13:49 | NUR ---
RESTING COMFORTABLY; MINIMAL SEDATION PRECEDEX 0.2mcg; EQUAL CHEST RISE GOOD CHEST RISE AND AERATION THROUGHOUT BILATERAL LUNG FRANCIS AIRWAY PATENT; PLACED ON CPAP TRIAL NOTED TOLERATING WELL WITHOUT COMPLICATIONS NOTED; BEN/AIRCRAFT CYLINDER MECHANIC NOTIFIED
--- NOTE | 2022-11-07 13:51 | NUR ---
WOUND CARE RE-EVALUATION NOTE: -TRACH AND GT SITES LEATHA-STOMA SKIN DRY AND CLEAN, DRESSING IN PLACE -LEFT CHEEK SKIN TEAR FROM NETBACKUP ENGINEER ETT STEPHENS,1X2CM SUPERFICIAL DEPTH, WOUND BED PINK AND MOIST, NO ODOR, LEATHA-WOUND SKIN INTACT. -PRESSURE INJURY TO RIGHT ABOVE HEEL ACHILLEA BONY AREA NO CHANGE OF CONDITION, SLIGHTLY DECREASING IN SIZE. PARTIAL THICKNESS SKIN LOSS 1X1.3X0.2CM,WOUND BED 100% RED MOIST, NO ODOR, LEATHA-WOUND SKIN DRY HEALING SCAR TISSUE. -LEFT HEEL HEALED SCAR WITH BLANCHABLE REDNESS -SACRALCOCCYX BLANCHABLE REDNESS 3X4CM, FOAM DRESSING APPLIED.
--- NOTE | 2022-11-07 16:28 | NUR ---
STABLE AWAKE AND ALERT TOLERATING CPAP TRIAL NOTED GOOD CHEST RISE DEEP TRACHEAL SUCTION FOR LARGE THIN YELLOW/KRISHNAN SECRETIONS AIRWAY PATENT SpVt GREATER THAN 7ml/kg (NIH PREDICTED BODY WEIGHT) DECREASED PRESSURE SUPPORT TO 8 cmH2O SATURATION 99% ON FIO2 OF 30% PEEP 5 cmH2O TITRATED FIO2 TO 28% BEN/BONDING AGENT NOTIFIED
--- NOTE | 2022-11-07 18:20 | NUR ---
Closing Pt in no signs of pain or distress, trach to vent. Able to follow commands, remains on precedex drip. On levophed drip. Pt's sister visiting at bedside. Wilkins in place draining urine to gravity. Flexiseal with liquid output. Katy care and linen change done. Will endorse plan of care to RN.
[2022-11-08] VITALS (29 sets, daily range): BP systolic 94–124; BP diastolic 9–77
[2022-11-08] MEDS: Z-GUARD PASTE TP SCH ×3 (00:42→23:50)
[2022-11-08] MEDS: ALBUTEROL SULFATE/IPRATROPIU 3 ML SOL IH SCH ×4 (01:36→19:07)
[2022-11-08] MEDS: MEROPENEM 1,000 MG in NACL 0.9% 50 ML IV SCH ×2 (04:20→12:48)
[2022-11-08 05:19] LABS: BASOPHILS # (AUTO) 0.1 K/uL (0.00-0.22); BASOPHILS % (AUTO) 0.7 % (0.0-2.0); EOSINOPHILS % (AUTO) 0.2 % (0.0-4.0); HEMOGLOBIN 8.7 g/dL (12.0-18.0); LYMPHOCYTES # (AUTO) 0.9 K/uL (2.0-11.5); LYMPHOCYTES % (AUTO) 4.2 % (20.5-51.1); MEAN CORPUSCULAR HEMOGLOBIN 31 pg (27-31); MEAN CORPUSCULAR HGB CONC 33 g/dL (33-37); MEAN CORPUSCULAR VOLUME 94.3 fL (80-94); MONOCYTES # (AUTO) 1.4 K/uL (0.8-1.0); MONOCYTES % (AUTO) 6.8 % (1.7-9.3); NEUTROPHILS % (AUTO) 88.1 % (42.2-75.2); RED BLOOD CELL COUNT(AUTO) 2.76 MIL/uL (4.20-6.10); RED CELL DISTRIBUTION WIDTH 14.3 % (11.6-13.7); WHITE BLOOD COUNT (AUTO) 20.4 K/uL (4.8-10.8)
[2022-11-08 05:36] LABS: ALBUMIN 1.5 g/dL (3.4-5.0); ANION GAP 9.3 (8-16); CARBON DIOXIDE 32.3 mmol/L (21-32); CREATININE 0.5 mg/dL (0.6-1.3); MAGNESIUM 1.7 mg/dL (1.8-2.4); PHOSPHORUS 3.8 mg/dL (2.5-4.9); TOTAL BILIRUBIN 0.7 mg/dL (0.0-1.0)
[2022-11-08 05:57] LABS: PLATELET COUNT (AUTO) 1107 K/uL (140-450); POTASSIUM 2.6 mmol/L (3.5-5.1)
[2022-11-08] MEDS: POTASSIUM CHLORIDE 20% 40 MEQ/15 ML UDC GT PRN (06:22)
[2022-11-08] MEDS ORDERED: KCL 20 MEQ IN 100 mL PREMIX 200 ML IV ONE (06:24)
[2022-11-08] MEDS: BLOOD GLUCOSE MONITORING 1 DEV DEV MC SCH ×4 (06:32→23:48)
--- NOTE | 2022-11-08 07:10 | NUR ---
Opening Received report on pt. Pt awake, alert, able to follow commands. Pt in no signs of distress, indicated no pain, trach to vent, on precedex drip. Pt also on levophed drip and receiving K rider per MD order. Wilkins in place draining urine to gravity. Flexiseal in place with loose brown stool. Heels off loaded with pillows and heel protector boots. Will start pt on GT feeding and resume heparin per MD order.
--- NOTE | 2022-11-08 08:04 | NUR ---
RCVD PT ON VENTILATOR SETTINGS PRVC 500 RATE OF 20 PEEP 5, AND FIO2 28%. PATIENT SATING AT 100%. VENITLATOR PLUGGED INTO RED OUTLET, AMBU BAG, FLOWMETER, AND SUCTION SET UP AT BEDSIDE. PATIENT WAS TRACHED YESTERDAY. TRACHS SUTRAS STILL IN PLACE, SMALL AMOUNT OF BLOOD SEEN AT STOMA. PATIENT EXHIBTS NO SIGNS OF RESPIRATORY DISTRESS. IS ALERT AND COULD TELL ME THAT HE WANTED TO BE SUCTIONED UPON INQUIRY. WILL CONTINUE TO MONITOR.
[2022-11-08] MEDS: FUROSEMIDE 20 MG/2 ML VIAL IVP SCH ×2 (08:25→21:01)
[2022-11-08] MEDS: FAMOTIDINE 20 MG/2 ML VIAL IV SCH ×2 (08:25→21:02)
[2022-11-08] MEDS: METOCLOPRAMIDE 10 MG/2 ML INJ VIAL IVP SCH ×3 (08:25→16:22)
[2022-11-08] MEDS: AMIODARONE 200 MG TAB PO SCH (08:26)
[2022-11-08] MEDS: ALGINATE DRESSING MC SCH (08:30)
--- NOTE | 2022-11-08 10:25 | NUR ---
SPOKE WITH PATIENT AND EXPLAINED THAT HE WAS BEING PLACED ON CPAP TO HAVE HIM EXERCISE HIS LUNGS AND OBSERVE HIS PROGRESS. PATIENT UNDERSTOOD IS AWAKE AND ALERT. PATIENT PLACED ON CPAP OF PEED OF 5 PRESSURE SUPPORT OF 8. GETTING GOOD AND ADEQUATE VOLUMES. WILL CONTINUE TO MONITOR.
--- NOTE | 2022-11-08 11:02 | NUR ---
PICC line consent obtained from pt's Edison, witnessed with second RN.
--- NOTE | 2022-11-08 11:03 | NUR ---
Dr. Sun rounding on pt, states to remove central line and place PICC line. Precedex off and tapering levophed. New orders made.
--- NOTE | 2022-11-08 11:15 | NUR ---
PATIENT PLACED ON FULL SUPPORT/PREVIOUS SETTINGS. HE WAS GETTING ANXIOUS AND TOUCHING THE VENTILATOR CIRCUIT LIMBS. TRIED TO CALM PATIENT DOWN RESPIRATORY RATE CLIMBED IN THE 30S. DECIDED TO PLACE PATIENT BACK ON PREVIOUS SETTINGS AND WILL CONTINUE TO MONITOR.
--- NOTE | 2022-11-08 11:23 | NUR ---
Pt noted pulling tracheostomy despite education. Applied soft wrist restraints for safety, informed and educated pt.
[2022-11-08] MEDS: MICAFUNGIN SODIUM 100 MG in NACL 0.9% 100 ML IV SCH (11:37)
[2022-11-08] MEDS: SCOPOLAMINE 1.5 MG/72 HR PATCH TD SCH (11:38)
--- NOTE | 2022-11-08 13:26 | NUR ---
Pt in no signs of distress, indicated no pain. Awake and watching TV.
--- NOTE | 2022-11-08 14:21 | NUR ---
11/08/22 RD FOLLOW UP COMPLETED PLEASE REFER TO NUTRITION ASSESSMENT UNDER CARE ACTIVITY FOR ESTIMATED NUTRITIONAL NEEDS. 1. RD RECOMMENDS TO CONTINUE ON TUBE FEEDING OF GLUCERNA 1.2 @ 55ML/HR FWF 50 Q4H DIET TOLERATED. THIS WILL PROVIDE 1584 CALORIES AND 78 GRAMS OF PROTEIN. 2. RD RECOMMENDS CONTINUE WITH RANDI BID FOR WOUNDS WHICH WILL PROVIDE 16OKCALS AND 5 GRAMS OF PROTEIN. 3. MONITOR GI, NUTRITION SUPPORT/MALNOURISHMENT, AND NUTRITION RELATED LAB VALUES. 4. RD TO FOLLOW-UP 2-3 DAYS, HIGH RISK LEO MARTE RD
--- NOTE | 2022-11-08 14:31 | NUR ---
Pt noted with some serosanguineous secretions from tracheostomy site. Site care done. Pt indicated no pain or distress at this time.
--- NOTE | 2022-11-08 17:20 | NUR ---
PICC line nurse at bedside for procedure
[2022-11-08] MEDS: DEXMEDETOMIDINE HCL 400 MCG in NACL 0.9% 96 ML IV PRN (17:21)
[2022-11-08] MEDS: MORPHINE SULFATE 2 MG/ML SYR IVP PRN (17:33)
--- NOTE | 2022-11-08 17:33 | NUR ---
MORPHINE 2MG IVP GIVEN BEFOE PICC LINE INSERTION.
--- NOTE | 2022-11-08 18:15 | NUR ---
Removed right IJ central line per MD order. Catheter tip intact, bleeding controlled.
--- NOTE | 2022-11-08 18:41 | NUR ---
Closing Pt in no signs of distress, pt indicated no pain, trach to vent. Bilateral soft wrist restraints remain in place for safety, no skin breakdown noted, pulses present bilaterally. Will endorse plan of care to RN.
--- NOTE | 2022-11-08 20:00 | NUR ---
OPENING NOTE PT AC/PRVC MODE ON VENTILATOR SETTINGS PRVC 500 RATE OF 20 PEEP 5, AND FIO2 28%. PATIENT SATING AT 100%. VENITLATOR PLUGGED INTO RED OUTLET, AMBU BAG, FLOWMETER, AND SUCTION SET UP AT BEDSIDE. PATIENT WAS TRACHED YESTERDAY. TRACHS SUTRAS STILL IN PLACE, SMALL AMOUNT OF BLOOD SEEN AT STOMA. PATIENT EXHIBTS NO SIGNS OF RESPIRATORY DISTRESS. IS ALERT AND COULD TELL ME THAT HE WANTED TO BE SUCTIONED UPON INQUIRY. WILL CONTINUE TO MONITOR.
[2022-11-08] MEDS: QUEtiapine FUMARATE 25 MG TAB PO SCH (21:01)
[2022-11-08] MEDS: VANCOMYCIN 750 MG in DEXTROSE 5% 250 ML IV SCH (21:01)
[2022-11-09] VITALS (31 sets, daily range): BP systolic 69–160; BP diastolic 47–97
[2022-11-09] MEDS: ALBUTEROL SULFATE/IPRATROPIU 3 ML SOL IH SCH ×4 (00:51→18:59)
[2022-11-09 05:14] LABS: BASOPHILS # (AUTO) 0.2 K/uL (0.00-0.22); BASOPHILS % (AUTO) 0.7 % (0.0-2.0); EOSINOPHILS # (AUTO) 0.1 K/uL (0-0.4); EOSINOPHILS % (AUTO) 0.4 % (0.0-4.0); HEMATOCRIT 26.4 % (36-52); HEMOGLOBIN 8.7 g/dL (12.0-18.0); LYMPHOCYTES # (AUTO) 1.3 K/uL (2.0-11.5); LYMPHOCYTES % (AUTO) 5.6 % (20.5-51.1); MEAN CORPUSCULAR HEMOGLOBIN 31 pg (27-31); MEAN CORPUSCULAR HGB CONC 33 g/dL (33-37); MEAN CORPUSCULAR VOLUME 92.9 fL (80-94); MONOCYTES # (AUTO) 1.5 K/uL (0.8-1.0); MONOCYTES % (AUTO) 6.4 % (1.7-9.3); NEUTROPHILS # (AUTO) 19.8 K/uL (1.8-7.7); NEUTROPHILS % (AUTO) 86.9 % (42.2-75.2); RED BLOOD CELL COUNT(AUTO) 2.85 MIL/uL (4.20-6.10); RED CELL DISTRIBUTION WIDTH 14.8 % (11.6-13.7); WHITE BLOOD COUNT (AUTO) 22.8 K/uL (4.8-10.8)
[2022-11-09 05:40] LABS: PLATELET COUNT (AUTO) 1157 K/uL (140-450)
[2022-11-09 05:42] LABS: ALBUMIN 1.5 g/dL (3.4-5.0); ANION GAP 8.8 (8-16); CARBON DIOXIDE 32.4 mmol/L (21-32); CREATININE 0.7 mg/dL (0.6-1.3); MAGNESIUM 2.1 mg/dL (1.8-2.4); PHOSPHORUS 3.6 mg/dL (2.5-4.9); POTASSIUM 3.2 mmol/L (3.5-5.1); TOTAL BILIRUBIN 0.6 mg/dL (0.0-1.0)
[2022-11-09] MEDS: BLOOD GLUCOSE MONITORING 1 DEV DEV MC SCH ×4 (06:00→23:57)
--- NOTE | 2022-11-09 07:15 | NUR ---
RECEIVED REPORT FROM PELLET PREPARATION OPERATOR REGISTRY NURSE JESICA NAIR. PATIENT IS ABLE TO FOLLOW YES OR NO COMMANDS. PERRL NOTED. CRACKLES NOTED UPON LUNG AUSCULTATION. TRACH TO VENT CURRENTLY ON A/C PRVC FIO2 28%, VT 500, RR 20, PEEP 5 O2 SATURATION OF 97%. SINUS RHYTHM ON MONITOR. ABDOMEN IS SOFT WITH ALL ABDOMINAL QUADRANTS ACTIVE. RECTAL TUBE IN PLACE WITH 75 ML OF BM. G-TUBE IN PLACE WITH GLUCERNA 1.2 WITH RANDI BID INFUSING AT 55 ML/HR WITH FWF 50 ML Q4H TOLERATED. PATIENT HAS RIGHT UPPER ARM PICC LINE CURRENTLY INFUSING NORMAL SALINE TKO 5 ML/HR, WITH NO INFILTRATION. YANG CATHETER TO GRAVITY WITH DARK YELLOW URINE. BILATERAL SOFT WRIST RESTRAINTS IN PLACE FOR SAFETY. SKIN BREAKDOWN NOTED ON RIGHT HEEL. BLEACH PRECAUTION, HOB 30 DEGREES FOR ASPIRATION PRECAUTION, BED WHEELS LOCKED AND IN LOWEST POSITION.
[2022-11-09] MEDS: FUROSEMIDE 20 MG/2 ML VIAL IVP SCH ×2 (08:21→20:28)
[2022-11-09] MEDS: QUEtiapine FUMARATE 25 MG TAB PO SCH ×2 (08:22→20:28)
[2022-11-09] MEDS: AMIODARONE 200 MG TAB PO SCH (08:22)
[2022-11-09] MEDS: METOCLOPRAMIDE 10 MG/2 ML INJ VIAL IVP SCH ×3 (08:23→17:30)
[2022-11-09] MEDS: VANCOMYCIN 750 MG in DEXTROSE 5% 250 ML IV SCH (08:26)
[2022-11-09] MEDS: FAMOTIDINE 20 MG/2 ML VIAL IV SCH ×2 (08:26→20:24)
[2022-11-09] MEDS: FOAM DRESSING TP SCH (08:27)
[2022-11-09] MEDS: POTASSIUM CHLORIDE 20% 40 MEQ/15 ML UDC GT PRN (08:39)
[2022-11-09] MEDS: ACETAMINOPHEN 325 MG TAB PO PRN ×2 (09:42→21:59)
--- NOTE | 2022-11-09 09:45 | NUR ---
DR EVANS ROUNDED AT PATIENT BEDSIDE. NO NEW ORDERS RECEIVED.
--- NOTE | 2022-11-09 11:45 | NUR ---
DR KILGORE ROUNDED AT PATIENT BEDSIDE NO NEW ORDERS RECEIVED.
[2022-11-09] MEDS: Z-GUARD PASTE TP SCH (12:38)
--- NOTE | 2022-11-09 19:15 | NUR ---
ENDORSED REPORT TO DIRECTOR OF DEMENTIA OPERATIONS REGISTRY NURSE JESICA NGO. FOR CONTINUITY OF CARE.
--- NOTE | 2022-11-09 19:38 | NUR ---
1934 CHANGED PATIENTS VENT MODE TO AC DUE TO PATIENTS LOW PEAK PRESSURES. PATIENTS PEAK PRESSURES ARE LOWER THEN ALARM SETTINGS WILL GO. PT DOUNG FINE ON AC MODE
[2022-11-09] MEDS: MEROPENEM 1,000 MG in NACL 0.9% 50 ML IV SCH (20:23)
[2022-11-09] MEDS: MORPHINE SULFATE 2 MG/ML SYR IVP PRN (23:11)
[2022-11-10] VITALS (14 sets, daily range): BP systolic 119–148; BP diastolic 56–75
--- NOTE | 2022-11-10 | NUR ---
AWAKEN ,HEART RATE-120 . TEMP-100.7 COOLING MEASURES DONE.RECHECKED TEMP-99.8 HEART RATE 108 VENTED VIA TRACHE.WITH SAME SETTING. CONT. WITH TF GLUCERNA 55ML./HR TOLERATED WELL . SUCTIONED , CONT. TO MONITOR PT.REPOSITIONED.
[2022-11-10] MEDS: ALBUTEROL SULFATE/IPRATROPIU 3 ML SOL IH SCH ×3 (01:00→13:00)
[2022-11-10] MEDS: MEROPENEM 1,000 MG in NACL 0.9% 50 ML IV SCH ×3 (04:01→20:08)
[2022-11-10 05:09] LABS: BASOPHILS # (AUTO) 0.2 K/uL (0.00-0.22); BASOPHILS % (AUTO) 0.7 % (0.0-2.0); EOSINOPHILS # (AUTO) 0.1 K/uL (0-0.4); EOSINOPHILS % (AUTO) 0.5 % (0.0-4.0); HEMOGLOBIN 8.1 g/dL (12.0-18.0); LYMPHOCYTES # (AUTO) 1.2 K/uL (2.0-11.5); LYMPHOCYTES % (AUTO) 4.5 % (20.5-51.1); MEAN CORPUSCULAR HEMOGLOBIN 30 pg (27-31); MEAN CORPUSCULAR HGB CONC 32 g/dL (33-37); MEAN CORPUSCULAR VOLUME 93.7 fL (80-94); MONOCYTES # (AUTO) 1.4 K/uL (0.8-1.0); MONOCYTES % (AUTO) 5.4 % (1.7-9.3); NEUTROPHILS # (AUTO) 23.3 K/uL (1.8-7.7); NEUTROPHILS % (AUTO) 88.9 % (42.2-75.2); PLATELET COUNT (AUTO) 922 K/uL (140-450); RED BLOOD CELL COUNT(AUTO) 2.67 MIL/uL (4.20-6.10); RED CELL DISTRIBUTION WIDTH 14.8 % (11.6-13.7)
[2022-11-10 05:50] LABS: ALBUMIN 1.5 g/dL (3.4-5.0); ANION GAP 7.7 (8-16); CARBON DIOXIDE 32.5 mmol/L (21-32); CREATININE 0.7 mg/dL (0.6-1.3); MAGNESIUM 2.1 mg/dL (1.8-2.4); PHOSPHORUS 4.3 mg/dL (2.5-4.9); POTASSIUM 3.2 mmol/L (3.5-5.1); TOTAL BILIRUBIN 0.3 mg/dL (0.0-1.0)
[2022-11-10] MEDS: BLOOD GLUCOSE MONITORING 1 DEV DEV MC SCH ×4 (05:54→23:32)
[2022-11-10 05:58] LABS: WHITE BLOOD COUNT (AUTO) 26.2 K/uL (4.8-10.8)
--- NOTE | 2022-11-10 07:15 | NUR ---
RECEIVED BEDSIDE REPORT FROM TRIBAL COUNCIL MEMBER JENI MOONEY. PT SLEEP. TRACH TO VENT, A/C VC FIO2 24%, VT 500, RATE 20, PEEP 5. ST ON MONITOR. G TUBE TO TUBE FEEDING, INFUSING GLUCERNA 55MLS/H, FWF 50ML Q4H, TOLERATE WELL, RESIDUAL 20ML. YANG IN PLACE TO GRAVITY, URINE LIGHT SHAW AND CLEAR. RECTAL TUBE IN PLACE. GENERALIZED WEAKNESS, BEDREST. BILAT SOFT RESTRAINT IN PLACE, NO S/S OF INJURY. SEE SKIN ASSESSMENT. CONTACT ISOLATION. SAFETY PRECAUTION IN PLACE, WILL CONTINUE TO MONITOR. Addendum: 11/10/22 at 0753 by Tessie Millan RN PICC LINE TO [place], INFUSING TKO NS 5MLS/H.
[2022-11-10] MEDS: POTASSIUM CHLORIDE 20% 40 MEQ/15 ML UDC GT PRN (07:36)
[2022-11-10] MEDS: FAMOTIDINE 20 MG/2 ML VIAL IV SCH ×2 (08:19→21:13)
[2022-11-10] MEDS: FUROSEMIDE 20 MG/2 ML VIAL IVP SCH ×2 (08:19→21:13)
[2022-11-10] MEDS: AMIODARONE 200 MG TAB PO SCH (08:20)
[2022-11-10] MEDS: METOCLOPRAMIDE 10 MG/2 ML INJ VIAL IVP SCH ×3 (08:20→17:00)
[2022-11-10] MEDS: QUEtiapine FUMARATE 25 MG TAB PO SCH ×2 (08:21→21:14)
--- NOTE | 2022-11-10 09:50 | NUR ---
CALLED AND SBAR GIVEN TO OBET RN TO ENDORSE CONTINUITY OF CARE. PT WILL BE TRANSFERRED TO ROOM 214B. ALL QUESTIONS ANSWERED.
--- NOTE | 2022-11-10 10:10 | NUR ---
PT TRANSFERRED VIA BED WITH RT HELP TO ROOM 124B. VS STABLE. ALL QUESTION ANSWERED.
[2022-11-10] MEDS: Z-GUARD PASTE TP SCH ×2 (13:00)
--- NOTE | 2022-11-10 19:30 | NUR ---
RECEIVED BEDSIDE REPORT FROM DAY RN. PT ASLEEP. TRACH TO VENT, A/C VC FIO2 24%, VT 500, RATE 20, PEEP 5. ST ON MONITOR. G TUBE TO TUBE FEEDING, INFUSING GLUCERNA 1.2 55MLS/H, FWF 50ML Q4H, TOLERATING WELL, RESIDUAL 30ML. YANG IN PLACE TO GRAVITY, URINE LIGHT SHAW AND CLEAR. RECTAL TUBE IN PLACE. BILATERAL SOFT RESTRAINTS IN PLACE, NO S/SX OF INJURY NOTED. PT ON CONTACT ISOLATION. ALL SAFETY PRECAUTIONS IN PLACE, WILL CONTINUE TO MONITOR.
--- NOTE | 2022-11-10 20:09 | NUR ---
TUBE FEEDING WAS REPLACED. NO RESIDUALS NOTED. WILL CONTINUE TO MONITOR.
[2022-11-10] MEDS ORDERED: COLISTIMETHATE SODIUM 150 MG VIAL ONE (21:06)
[2022-11-10] MEDS: COLISTIMETHATE SODIUM 150 MG in NACL 0.9% 100 ML IV SCH (21:12)
--- NOTE | 2022-11-10 21:30 | NUR ---
SCHEDULED MEDICATIONS GIVEN. PT TOLERATED WELL. WILL CONTINUE TO MONITOR,.
[2022-11-10] MEDS: MORPHINE SULFATE 2 MG/ML SYR IVP PRN (22:19)
--- NOTE | 2022-11-10 23:45 | NUR ---
BLOOD SUGAR WAS 99. NO INSULIN COVERAGE NEEDED.
[2022-11-11] VITALS: BP 121/82
[2022-11-11] MEDS: Z-GUARD PASTE TP SCH ×2 (02:14→12:04)
[2022-11-11 04:00] VITALS: BP 129/67
[2022-11-11] MEDS: MEROPENEM 1,000 MG in NACL 0.9% 50 ML IV SCH ×3 (04:05→20:55)
[2022-11-11 05:12] LABS: BASOPHILS # (AUTO) 0.1 K/uL (0.00-0.22); BASOPHILS % (AUTO) 0.7 % (0.0-2.0); EOSINOPHILS # (AUTO) 0.1 K/uL (0-0.4); EOSINOPHILS % (AUTO) 0.7 % (0.0-4.0); HEMATOCRIT 26.8 % (36-52); HEMOGLOBIN 8.7 g/dL (12.0-18.0); LYMPHOCYTES # (AUTO) 1.3 K/uL (2.0-11.5); LYMPHOCYTES % (AUTO) 6.5 % (20.5-51.1); MEAN CORPUSCULAR HEMOGLOBIN 30 pg (27-31); MEAN CORPUSCULAR HGB CONC 33 g/dL (33-37); MEAN CORPUSCULAR VOLUME 92.8 fL (80-94); MONOCYTES # (AUTO) 1.3 K/uL (0.8-1.0); MONOCYTES % (AUTO) 6.5 % (1.7-9.3); NEUTROPHILS # (AUTO) 17.1 K/uL (1.8-7.7); NEUTROPHILS % (AUTO) 85.6 % (42.2-75.2); PLATELET COUNT (AUTO) 878 K/uL (140-450); RED BLOOD CELL COUNT(AUTO) 2.89 MIL/uL (4.20-6.10); RED CELL DISTRIBUTION WIDTH 14.8 % (11.6-13.7); WHITE BLOOD COUNT (AUTO) 19.9 K/uL (4.8-10.8)
[2022-11-11 05:35] LABS: ALBUMIN 1.5 g/dL (3.4-5.0); ANION GAP 8.9 (8-16); CARBON DIOXIDE 30.6 mmol/L (21-32); CREATININE 0.8 mg/dL (0.6-1.3); MAGNESIUM 2.1 mg/dL (1.8-2.4); PHOSPHORUS 4.3 mg/dL (2.5-4.9); POTASSIUM 3.5 mmol/L (3.5-5.1); TOTAL BILIRUBIN 0.3 mg/dL (0.0-1.0)
--- NOTE | 2022-11-11 06:00 | NUR ---
BLOOD SUGAR WAS 97. NO INSULIN COVERAGE NEEDED.
[2022-11-11] MEDS: BLOOD GLUCOSE MONITORING 1 DEV DEV MC SCH ×3 (06:08→17:31)
--- NOTE | 2022-11-11 06:42 | NUR ---
PT IS STABLE. NO ACUTE EVENTS THROUGHOUT THE NIGHT. NO S/SX OF DISTRESS AT THE MOMENT. ALL NEEDS MET. ALL PRECAUTIONS IN PLACE. CALL LIGHT WITHIN REACH. WILL ENDORSE TO DAY SHIFT RN.
[2022-11-11] MEDS: ALBUTEROL SULFATE/IPRATROPIU 3 ML SOL IH SCH ×3 (07:00→19:34)
--- NOTE | 2022-11-11 07:17 | NUR ---
RECEIVED PT ON ACVC 500,20,+5,24%. VENT PLUGGED INTO RED OUTLET, WHEELS ARE LOCKED, AMBUBAG AT BEDSIDE, ALARMS ARE SET AND AUDIBLE. 0715 CPAP TRAIL 03/14, 24% STARTED. WILL CONTINUE TO MONITOR.
--- NOTE | 2022-11-11 07:20 | NUR ---
RECEIVED REPORT FROM PHARMACEUTICAL DEVELOPMENT TECHNICIAN NURSE FOR CONTINUITY OF CARE. PT STABLE AT THIS TIME.
[2022-11-11 08:00] VITALS: BP 130/67
[2022-11-11] MEDS: COLISTIMETHATE SODIUM 150 MG in NACL 0.9% 100 ML IV SCH ×2 (09:17→20:04)
[2022-11-11] MEDS: AMIODARONE 200 MG TAB PO SCH (09:17)
[2022-11-11] MEDS: QUEtiapine FUMARATE 25 MG TAB PO SCH ×2 (09:18→20:04)
[2022-11-11] MEDS: FAMOTIDINE 20 MG/2 ML VIAL IV SCH ×2 (09:21→20:04)
[2022-11-11] MEDS: FUROSEMIDE 20 MG/2 ML VIAL IVP SCH ×2 (09:21→20:04)
[2022-11-11] MEDS: METOCLOPRAMIDE 10 MG/2 ML INJ VIAL IVP SCH ×3 (09:21→17:31)
[2022-11-11] MEDS: ALGINATE DRESSING MC SCH (09:22)
[2022-11-11 12:00] VITALS: BP 149/54
[2022-11-11] MEDS: SCOPOLAMINE 1.5 MG/72 HR PATCH TD SCH (12:03)
--- NOTE | 2022-11-11 13:09 | NUR ---
PT LASTED 6 HOURS ON CPAP 10/5, 24%. SATURATION 97%. COARSE BREATH SOUNDS, VOLUMES RANGED FROM 350-490. RESPIRATORY RATE 20 TO 27. RSBI RANGE FROM 50-68. NO DISTRESS NOTED. RETURNED PT TO FULL VENT SUPPORT SO HE CAN REST. WILL CONTINUE TO MONITOR PATIENT.
--- NOTE | 2022-11-11 15:50 | NUR ---
11/11/22 RD FOLLOW UP COMPLETED. PLEASE REFER TO NUTRITION ASSESSMENT UNDER CARE ACTIVITY FOR ESTIMATED NUTRITIONAL NEEDS. 1. CONTINUE TUBE FEEDING OF GLUCERNA 1.2 @ 55ML/HR FWF 50 ML Q4H TOLERATED. THIS WILL PROVIDE 1584 CALORIES AND 79 GRAMS OF PROTEIN. 2. CONTINUE WITH RANDI BID FOR WOUNDS WHICH WILL PROVIDE 16OKCALS AND 5 GRAMS OF PROTEIN. 3. MONITOR GI, NUTRITION SUPPORT/MALNOURISHMENT, AND NUTRITION RELATED LAB VALUES. 4. RD TO FOLLOW-UP IN 2-3 DAYS PATIENT IS HIGH RISK. ANNALISE NASCIMENTO RD
[2022-11-11 16:00] VITALS: BP 149/87
--- NOTE | 2022-11-11 19:17 | NUR ---
ENDORSED PT TO BRAKE ASSEMBLER NURSE FOR CONTINUITY OF CARE. PT IS STABLE AT THIS TIME.
--- NOTE | 2022-11-11 19:24 | NUR ---
RECEIVED BEDSIDE REPORT FROM DAY RN. PT ASLEEP. NO S/SX OF PAIN NOR DISCOMFORT. TRACH TO VENT, A/C VC FIO2 24%, VT 500, RATE 20, PEEP 5. ST ON MONITOR. G TUBE TO TUBE FEEDING, INFUSING GLUCERNA 1.2 55MLS/HR WITH WATER FLUSH 50ML Q4H, TOLERATING WELL, RESIDUAL 30ML. YANG IN PLACE TO GRAVITY, URINE LIGHT SHAW AND CLEAR. RECTAL TUBE IN PLACE. BILATERAL SOFT RESTRAINTS IN PLACE, NO S/SX OF INJURY NOTED. PT ON CONTACT ISOLATION. SAFETY PRECAUTIONS IN PLACE,
[2022-11-11] MEDS: ACETAMINOPHEN 325 MG TAB PO PRN (19:35)
--- NOTE | 2022-11-11 19:35 | NUR ---
TEMP-100.7, TYLENOL GIVEN ORDERED, COOLING MEASURES DONE.
[2022-11-11 19:54] VITALS: BP 140/92
--- NOTE | 2022-11-11 20:04 | NUR ---
SCHEDULED MEDICATIONS GIVEN ORDERED. REPOSITIONED FOR COMFORT. HEAD OF THE BED ELEVATED.
--- NOTE | 2022-11-11 21:00 | NUR ---
CURRENT TEMP-98.9 AT THIS TIME.
[2022-11-12] VITALS: BP 138/71
--- NOTE | 2022-11-12 | NUR ---
VITAL SIGNS TAKEN AND DOCUMENTED, PT AFEBRILE. NO RESIDUAL FROM GTUBE AT THIS TIME. REPOSITIONED PT, HEAD OF THE BED ELEVATED.
[2022-11-12] MEDS: ALBUTEROL SULFATE/IPRATROPIU 3 ML SOL IH SCH ×4 (00:29→18:48)
[2022-11-12] MEDS: BLOOD GLUCOSE MONITORING 1 DEV DEV MC SCH ×4 (00:43→18:46)
[2022-11-12] MEDS: Z-GUARD PASTE TP SCH ×2 (00:44→13:50)
[2022-11-12] MEDS: ACETAMINOPHEN 325 MG TAB PO PRN ×2 (03:04→20:14)
--- NOTE | 2022-11-12 03:04 | NUR ---
HR NOTED TO BE ON THE 130'S. TEMP CHECKED-100.8, TYLENOL GIVEN ORDERED. COOLING MEASURES ON.
[2022-11-12 04:00] VITALS: BP 140/89
--- NOTE | 2022-11-12 04:00 | NUR ---
CURRENT TEMP-98.9. REPOSITIONED PT FOR COMFORT. HEAD OF THE BED ELEVATED.
[2022-11-12] MEDS: MEROPENEM 1,000 MG in NACL 0.9% 50 ML IV SCH ×3 (04:44→22:18)
[2022-11-12 05:40] LABS: ALBUMIN 1.6 g/dL (3.4-5.0); ANION GAP 7.7 (8-16); CARBON DIOXIDE 32.7 mmol/L (21-32); CREATININE 0.9 mg/dL (0.6-1.3); PHOSPHORUS 4.8 mg/dL (2.5-4.9); POTASSIUM 3.4 mmol/L (3.5-5.1); TOTAL BILIRUBIN 0.4 mg/dL (0.0-1.0)
--- NOTE | 2022-11-12 05:48 | NUR ---
AM CARE RENDERED, TRACH AND ORAL SUCTIONING DONE NEEDED, ORAL CARE DONE. G-TUBE SITE CLEANED AND CHANGED DRESSING.
--- NOTE | 2022-11-12 06:43 | NUR ---
PATIENT IS ASLEEP. NO DISTRESS NOTED. ALL NEEDS ATTENDED TO. SAFETY PRECAUTIONS MAINTAINED DURING THE SHIFT, CALL LIGHT REMAINS WITHIN REACH.
--- NOTE | 2022-11-12 06:55 | NUR ---
RECEIVED BEDSIDE REPORT FROM NIGHTSHIFT NURSE. PT IS ASLEEP, RESTING IN BED. WOKE TO NAME AND TOUCH. NO SIGNS OF DISTRESS, NO SIGNS OF PAIN/DISCOMFORT. PT ON VENT, O2 SAT @ 98%. PT BP LOW, 99/63. WILL ASSESS AND INFORM MD.
[2022-11-12 08:00] VITALS: BP 99/63
[2022-11-12 08:38] LABS: HEMATOCRIT 28.3 % (36-52); HEMOGLOBIN 9.1 g/dL (12.0-18.0); MEAN CORPUSCULAR HEMOGLOBIN 30 pg (27-31); MEAN CORPUSCULAR HGB CONC 32 g/dL (33-37); MEAN CORPUSCULAR VOLUME 93.8 fL (80-94); PLATELET COUNT (AUTO) 909 K/uL (140-450); RED BLOOD CELL COUNT(AUTO) 3.02 MIL/uL (4.20-6.10); RED CELL DISTRIBUTION WIDTH 14.9 % (11.6-13.7)
[2022-11-12] MEDS: FOAM DRESSING TP SCH (09:00)
[2022-11-12 09:15] LABS: WHITE BLOOD COUNT (AUTO) 27.4 K/uL (4.8-10.8)
[2022-11-12 09:16] LABS: LYMPHOCYTES % (MANUAL) 4 % (20-46); MONOCYTES % (MANUAL) 5 % (5-12)
[2022-11-12] MEDS: FUROSEMIDE 20 MG/2 ML VIAL IVP SCH ×2 (09:57→22:09)
[2022-11-12] MEDS: FAMOTIDINE 20 MG/2 ML VIAL IV SCH ×2 (09:57→22:19)
[2022-11-12] MEDS: METOCLOPRAMIDE 10 MG/2 ML INJ VIAL IVP SCH ×3 (09:58→18:26)
[2022-11-12] MEDS: AMIODARONE 200 MG TAB PO SCH (09:59)
[2022-11-12] MEDS: QUEtiapine FUMARATE 25 MG TAB PO SCH ×2 (10:00→22:20)
[2022-11-12] MEDS: COLISTIMETHATE SODIUM 150 MG in NACL 0.9% 100 ML IV SCH ×2 (10:07→23:44)
--- NOTE | 2022-11-12 11:40 | NUR ---
PATIENT PLACED ON CPAP OF 8 WITH PEEP OF 5. PATIENT AIRWAY IS PATENT AND SECURED BY TRACH STEPHENS. AMBU BAG IS AT HEAD OF BED. VENTILATOR ALARMS ARE SET AND AUDIBLE TO ENVIRONMENT. VENTILATOR IS PLUGGED INTO RED OUTLET AND WHEELS ARE LOCKED. PATIENT IS TOLERATING CPAP AT THIS TIME. ADEQUATE CHEST RISE AND FALL NOTED AT THIS TIME. PATIENT IS AWAKE AND ALERT. NO RESPIRATORY DISTRESS NOTED AT THIS TIME. WILL CONTINUE TO MONITOR.
[2022-11-12 12:00] VITALS: BP 111/72
--- NOTE | 2022-11-12 12:00 | NUR ---
PATIENT SUTURES REMOVED AND TRACH TIES REPLACED. NO COMPLICATIONS AT THIS TIME.
[2022-11-12 16:00] VITALS: BP 124/73
--- NOTE | 2022-11-12 19:25 | NUR ---
ENDORSED TO NIGHTSHIFT NURSE FOR CONTINUITY OF CARE. PT IS RESTING IN BED, NO SIGNS OF DISTRESS. HR AT 120'S, NIGHT NURSE AWARE. BLOOD AND URINE CULTURE COLLECTED AND SENT TO LAB. NO FURTHER NEEDS ARE TO BE MET AT THIS TIME.
[2022-11-12 20:00] VITALS: BP 112/70
--- NOTE | 2022-11-12 20:00 | NUR ---
RECEUVED PT ST ON TELE MONITOR , TRACH TO VENT - ON O2 SAT MONITORING O2 SAT WNL , NO S/SX OF ACUTE DISTRESS NOTED , PT IS AWAKE , FEBRILE T 100.9 - WILL MEDICATE , WILL DO TSB , SERUM K +3.4 - WILL MEDICATE - WILL CONT. TO MONITOR
[2022-11-12] MEDS: POTASSIUM CHLORIDE 20% 40 MEQ/15 ML UDC GT PRN (20:15)
[2022-11-12] MEDS ORDERED: FLUCONAZOLE 100 MG TAB GT SCH (21:00)
--- NOTE | 2022-11-12 21:30 | NUR ---
TEMP RE CHECK 100. 4 F - WILL CONT . TSB , O2 SAT WNL , ON TELE MONITOR
--- NOTE | 2022-11-12 22:50 | NUR ---
TEMP RE CHECK 100.1 F - WILL CONT. TO MONITOR , NO CHILLS NOTED ,
--- NOTE | 2022-11-12 22:58 | NUR ---
[facility] CALL - INFORM PT IS HAS FEVER - STILL MONITORING , TSB , TYLENOL GIVEN , NO DISCHARGE ORDER YET . WILL ENDORSE TO AM NUGHT TO GIVE UPDATE TO THEM ALEA AM .
[2022-11-13] VITALS: BP 99/60
--- NOTE | 2022-11-13 | NUR ---
TEMP RE CHECK 98 .8 F , WILL CHANGE THE BEDDINGS AND GOWN , WILL CONT. TO MONITOR
[2022-11-13] MEDS: BLOOD GLUCOSE MONITORING 1 DEV DEV MC SCH ×2 (00:18→06:36)
[2022-11-13] MEDS: ALBUTEROL SULFATE/IPRATROPIU 3 ML SOL IH SCH ×2 (01:04→07:14)
[2022-11-13] MEDS: Z-GUARD PASTE TP SCH (01:30)
--- NOTE | 2022-11-13 02:00 | NUR ---
SLEEPING , B UT EASILY AROUSABLE BY SOUNDS , WILL CONT. TO MONITOR
[2022-11-13 04:00] VITALS: BP 112/62
--- NOTE | 2022-11-13 04:00 | NUR ---
ROUNDS , NO S/SX OF ACUTE DISTRESS NOTED , O2 SAT WNL , WILL CONT. TO MONITOR , NO DIARRHEA NOTED .
[2022-11-13 05:02] LABS: BASOPHILS # (AUTO) 0.1 K/uL (0.00-0.22); BASOPHILS % (AUTO) 0.7 % (0.0-2.0); EOSINOPHILS # (AUTO) 0.2 K/uL (0-0.4); EOSINOPHILS % (AUTO) 1.1 % (0.0-4.0); HEMATOCRIT 26.4 % (36-52); HEMOGLOBIN 8.6 g/dL (12.0-18.0); LYMPHOCYTES # (AUTO) 1.2 K/uL (2.0-11.5); LYMPHOCYTES % (AUTO) 5.6 % (20.5-51.1); MEAN CORPUSCULAR HEMOGLOBIN 30 pg (27-31); MEAN CORPUSCULAR HGB CONC 33 g/dL (33-37); MEAN CORPUSCULAR VOLUME 92.8 fL (80-94); MONOCYTES # (AUTO) 1.4 K/uL (0.8-1.0); MONOCYTES % (AUTO) 6.3 % (1.7-9.3); NEUTROPHILS # (AUTO) 18.8 K/uL (1.8-7.7); NEUTROPHILS % (AUTO) 86.3 % (42.2-75.2); PLATELET COUNT (AUTO) 787 K/uL (140-450); RED BLOOD CELL COUNT(AUTO) 2.85 MIL/uL (4.20-6.10); RED CELL DISTRIBUTION WIDTH 14.7 % (11.6-13.7); WHITE BLOOD COUNT (AUTO) 21.7 K/uL (4.8-10.8)
[2022-11-13 05:18] LABS: ALBUMIN 1.5 g/dL (3.4-5.0); ANION GAP 7.3 (8-16); CARBON DIOXIDE 29.9 mmol/L (21-32); CREATININE 0.9 mg/dL (0.6-1.3); PHOSPHORUS 4.1 mg/dL (2.5-4.9); POTASSIUM 4.2 mmol/L (3.5-5.1); TOTAL BILIRUBIN 0.3 mg/dL (0.0-1.0)
--- NOTE | 2022-11-13 06:00 | NUR ---
ROUNDS , NO S/SX OF ACUTE DISTRESS NOTED , O2 SAT WNL . WILL CONT. TO MONITOR
[2022-11-13] MEDS: MEROPENEM 1,000 MG in NACL 0.9% 50 ML IV SCH (06:23)
--- NOTE | 2022-11-13 07:08 | NUR ---
ENDORSED PT FOR CONT. OF CARE . Addendum: 11/13/22 at 07 by Ashley Klien RN AT 0708 O2 SAT 96 %
--- NOTE | 2022-11-13 07:09 | NUR ---
RECEIVED BEDSIDE REPORT FROM NIGHTSHIFT NURSE. PT IS AWAKE, RESTING IN BED. NO SIGNS OF DISTRESS/PAIN/DISCOMFORT. NO FURTHER NEEDS ARE TO BE MET AT THIS TIME, WILL CONTINUE WITH PT CARE.
[2022-11-13 07:24] VITALS: BP 98/64
[2022-11-13 08:00] VITALS: BP 98/64
--- NOTE | 2022-11-13 08:05 | NUR ---
RECEIVED PT FROM INCUBATOR MACHINE OPERATOR. FOUND PT SEMI-AWAKE AND NO RESP DISTRESS NOTED. PT TOLERATING VENTILATOR SETTINGS WELL. GIVEN TREATMENT, NO ADVERSE REACTION. REPLACED HME, OMIFLEX, TPIECE FOR NEBULIZER AND SUCTION NASH WITH ATTACHED TUBING. ALL WERE DIRTY. STARTED PT ON CPAP TRIAL AT 0725. PT TOLERATING WELL. AT 30 MINUTES EXP TIDAL VOLUME WAS 449, RR WAS 27. Addendum: 11/13/22 at 1045 by Corina Raymundo RT PATIENT PLACED ON CPAP OF 8 WITH PEEP OF 5. PATIENT AIRWAY IS PATENT AND SECURED BY TRACH STEPHENS. AMBU BAG IS AT HEAD OF BED. VENTILATOR ALARMS ARE SET AND AUDIBLE. VENTILATOR IS PLUGGED INTO RED OUTLET AND WHEELS ARE LOCKED. NO RESPIRATORY DISTRESS NOTED AT THIS TIME. WILL CONTINUE TO MONITOR.
[2022-11-13] MEDS: AMIODARONE 200 MG TAB PO SCH (08:54)
[2022-11-13] MEDS: QUEtiapine FUMARATE 25 MG TAB PO SCH (08:54)
[2022-11-13] MEDS: FAMOTIDINE 20 MG/2 ML VIAL IV SCH (08:55)
[2022-11-13] MEDS: METOCLOPRAMIDE 10 MG/2 ML INJ VIAL IVP SCH (08:55)
[2022-11-13] MEDS: COLISTIMETHATE SODIUM 150 MG in NACL 0.9% 100 ML IV SCH (08:56)
[2022-11-13] MEDS: FUROSEMIDE 20 MG/2 ML VIAL IVP SCH (09:00)
--- NOTE | 2022-11-13 09:30 | NUR ---
PT APPEARED UNCOMFORTABLE AND WAS BREATHING AT 33+ BREATHS PER MINUTE. TOOK OFF CPAP AND PLACED BACK ON AC SETTINGS. SUCTIONED LARGE AMOUNT OF THICK WHITE SECRETIONS. CLEANED AROUND STOMA AND PLACED FRESH GAUZE. aREA AROUND STOMA IS RED, BUT SKIN IS INTACT. PT RESTING COMFORTABLE, WILL CONTINUE TO MONITOR.
[2022-11-13 10:27] VITALS: BP 98/64
[2022-11-13] MEDS ORDERED: QUET25TA46 PO (10:34)
[2022-11-13] MEDS ORDERED: AMIO200T10 PO (10:34)
[2022-11-13] MEDS ORDERED: PEP20I IV (10:34)
[2022-11-13] MEDS ORDERED: FLUC100T1 GT (10:34)
[2022-11-13] MEDS ORDERED: LAS20I IVP (10:34)
[2022-11-13] MEDS ORDERED: SCOP0.333 TD (10:34)
[2022-11-13] MEDS ORDERED: MERO1VIA15 IV (10:34)
[2022-11-13] MEDS ORDERED: COLI150P4 GT (10:34)
--- NOTE | 2022-11-13 11:26 | NUR ---
11/13/22 RD FOLLOW UP COMPLETED PLEASE REFER TO NUTRITION ASSESSMENT UNDER CARE ACTIVITY FOR ESTIMATED NUTRITIONAL NEEDS. 1.CONTINUE GLUCERNA 1.2 @55ML/HR FWF 50 Q4H WHICH WILL PROVIDE 1584 CALORIES AND 79 GRAMS OF PROTEIN MEETING AT LEAST 75% OF ESTIMATED NUTRIENT NEEDS. 2.CONTINUE RANDI BID WHICH WILL PROVIDE 160KCALS AND 5 GRAMS OF PROTEIN. 3.RD WILL CONTINUE TO MONITOR GI, NUTRITION SUPPORT/MALNOURISHMENT, AND NUTRITION RELATED LAB VALUES. 4. RD TO FOLLOW-UP 2-3 DAYS, HIGH RISK LEO MARTE RD
--- NOTE | 2022-11-13 12:15 | NUR ---
PT INFORMED OF DISCHARGE. FAMILY AT BEDSIDE. PT PICKED UP BY [facility]. [facility] PT STABLE UPON DISCHARGE. PT LEFT UNIT VIA GURNEY WITH [facility].
== END 2022-11-13 12:15 | DRG 4 ==
LOC: MED 22:31 → MIC 10-24 03:31 → MTU 11-10 10:31
PROC: 5A09357 Assistance with Respiratory Ventilation, Less than 24 Consecutive Hours, Continuous Positive Airway Pressure (ICD-10-PCS; 2022-10-23)
PROC: 02HV33Z Insertion of Infusion Device into Superior Vena Cava, Percutaneous Approach (ICD-10-PCS; 2022-10-24)
PROC: B548ZZA Ultrasonography of Superior Vena Cava, Guidance (ICD-10-PCS; 2022-10-24)
PROC: 5A1955Z Respiratory Ventilation, Greater than 96 Consecutive Hours (ICD-10-PCS; 2022-10-27)
PROC: 0BH17EZ Insertion of Endotracheal Airway into Trachea, Via Natural or Artificial Opening (ICD-10-PCS; 2022-10-27)
PROC: 0B110F4 Bypass Trachea to Cutaneous with Tracheostomy Device, Open Approach (ICD-10-PCS; principal; 2022-11-07 10:00)
PROC: 02HV33Z Insertion of Infusion Device into Superior Vena Cava, Percutaneous Approach (ICD-10-PCS; 2022-11-08)
PROC: B548ZZA Ultrasonography of Superior Vena Cava, Guidance (ICD-10-PCS; 2022-11-08)
DX: A41.9 Sepsis, unspecified organism (principal); J15.0 Pneumonia due to Klebsiella pneumoniae; J69.0 Pneumonitis due to inhalation of food and vomit; R65.21 Severe sepsis with septic shock; N17.0 Acute kidney failure with tubular necrosis; J96.01 Acute respiratory failure with hypoxia; R57.8 Other shock; A04.72 Enterocolitis due to Clostridium difficile, not specified as recurrent; G82.20 Paraplegia, unspecified; K56.609 Unspecified intestinal obstruction, unspecified as to partial versus complete obstruction; N39.0 Urinary tract infection, site not specified; Z16.24 Resistance to multiple antibiotics; G93.1 Anoxic brain damage, not elsewhere classified; K56.7 Ileus, unspecified; Z68.1 Body mass index [BMI] 19.9 or less, adult; D75.839 Thrombocytosis, unspecified; Z20.822 Contact with and (suspected) exposure to COVID-19; R13.10 Dysphagia, unspecified; Z66 Do not resuscitate; I48.0 Paroxysmal atrial fibrillation; I11.0 Hypertensive heart disease with heart failure; I50.9 Heart failure, unspecified; Y95 Nosocomial condition; G20 Parkinson's disease; E87.6 Hypokalemia; D63.8 Anemia in other chronic diseases classified elsewhere; E11.9 Type 2 diabetes mellitus without complications; Z79.01 Long term (current) use of anticoagulants
CPT/HCPCS: 36415; 36556; 36600; 71045; 71250; 71275; 74018; 74250; 80048; 80053; 80202; 81001; 82040; 82570; 82803; 82948; 83036; 83605; 83735; 83880; 83930; 83935; 84100; 84300; 84478; 84484; 85025; 85379; 85610; 85730; 87040; 87070; 87081; 87086; 87205; 89220; 93005; 94002; 94003; 94640; 94660; 94667; 96365; 96366; 96367; 96375; 99291; 99292; A9153; J0282; J0770; J1644; J1815; J1885; J1940; J2001; J2060; J2185; J2248; J2250; J2270; J2405; J2543; J2704; J2765; J3010; J3370; J3372; J3475; J3480; J3490; J7030; J7060; Q0092; Q9967